=== PATIENT | male | born 1955 | race Caucasian/White ===

== ENCOUNTER 2017-06-02 03:25 | Inpatient (IN) | payer BC, OTHER ==
[2017-06-02] MEDS: MORPHINE 4 MG/ML 1ML VIAL/SYRINGE (J2270) IV ×4 (04:30→21:02)
[2017-06-02] MEDS: METOCLOPRAMIDE INJ 10MG/2ML VIAL (J2765) IV (04:30)
[2017-06-02] MEDS: NS 1,000 ML IV ×5 (04:30→20:23)
[2017-06-02 04:34] LABS: BASO % 0.1 % (0.0-1.0); HEMATOCRIT 36.8 % (42.0-52.0); HEMOGLOBIN 13.5 g/dl (13.5-17.5); IMMATURE GRANULOCYTE % 0.4 % (0-3.0); LYMPH # 0.7 10^3/uL (1.5-4.5); LYMPH % 4.6 % (24.0-44.0); MEAN CORPUSCULAR HEMOGLOBIN 32.8 pg (27.0-33.0); MEAN CORPUSCULAR HGB CONC 36.7 g/dl (32.0-36.5); MEAN CORPUSCULAR VOLUME 89.3 fl (80.0-96.0); MONO # 0.7 10^3/uL (0.0-0.8); MONO % 4.8 % (0.0-5.0); NEUTROPHILS % 90.1 % (36.0-66.0); PLATELET COUNT, AUTOMATED 221 10^3/uL (150-450); RED BLOOD COUNT 4.12 10^6/uL (4.30-6.10); RED CELL DISTRIBUTION WIDTH 11.9 % (11.5-14.5); WHITE BLOOD COUNT 15.5 10^3/uL (4.0-10.0)
[2017-06-02 05:03] LABS: ALBUMIN 3.9 GM/DL (3.2-5.2); ALBUMIN/GLOBULIN RATIO 1.05 (1.00-1.93); ALKALINE PHOSPHATASE 77 U/L (45-117); ALT/SGPT 18 U/L (12-78); ANION GAP 11 MEQ/L (8-16); AST/SGOT 16 U/L (7-37); BILIRUBIN,DIRECT 0.2 MG/DL (0.0-0.2); BILIRUBIN,TOTAL 1.2 MG/DL (0.2-1.0); BLOOD UREA NITROGEN 6 MG/DL (7-18); CALCIUM LEVEL 8.8 MG/DL (8.8-10.2); CARBON DIOXIDE LEVEL 24 MEQ/L (21-32); CHLORIDE LEVEL 90 MEQ/L (98-107); CREATININE FOR GFR 0.86 MG/DL (0.70-1.30); GLOMERULAR FILTRATION RATE > 60.0 (>49); GLUCOSE, FASTING 157 MG/DL (70-100); LIPASE 55 U/L (73-393); POTASSIUM SERUM 3.5 MEQ/L (3.5-5.1); SODIUM LEVEL 125 MEQ/L (136-145); TOTAL PROTEIN 7.6 GM/DL (6.4-8.2)
[2017-06-02 05:07] LABS: LACTIC ACID SEPSIS PROTOCOL 2.4 MMOL/L (0.4-2.0)
[2017-06-02 05:18] LABS: APPEARANCE, URINE CLEAR (CLEAR); BACTERIA, URINE AUTO NEGATIVE (NEGATIVE); BILIRUBIN, URINE AUTO NEGATIVE (NEGATIVE); BLOOD, URINE BLOOD 2+ (NEGATIVE); COLOR, URINE YELLOW (YELLOW); GLUCOSE, URINE (UA) AUTO 1+ mg/dL (NEGATIVE); KETONE, URINE AUTO TRACE mg/dL (NEGATIVE); LEUKOCYTE ESTERASE, URINE AUTO NEGATIVE (NEGATIVE); MUCUS, URINE SMALL (NEGATIVE); NITRITE, URINE AUTO NEGATIVE (NEGATIVE); PROTEIN, URINE AUTO NEGATIVE (NEGATIVE); RBC, URINE AUTO 10 /HPF (0-3); SQUAMOUS EPITHELIAL CELL UR AU 0 /HPF (0-6); UROBILINOGEN, URINE AUTO 0.2 mg/dL (0.0-2.0); WBC, URINE AUTO 0 /HPF (0-3)
[2017-06-02] MEDS: NS 500 ML IV (05:30)
[2017-06-02] MEDS: HYDROmorphone HCL 1 MG/ML SYRINGE (J1170) IV ×3 (05:35→11:43)
[2017-06-02] MEDS: ONDANSETRON 4MG/2ML VIAL (J2405) IV (05:41)
[2017-06-02] MEDS: PHENobarbital INJ 65 MG/ML VIAL (J2560) IV (06:15)
[2017-06-02] MEDS: GASTROGRAFIN SOLUTION 30ML (Q9963) PO ×2 (07:36→08:05)
[2017-06-02] MEDS ORDERED: ISOVUE-370 76% 100ML VIAL (Q9967) As Ordered (08:14)
[2017-06-02] MEDS ORDERED: METOCLOPRAMIDE INJ 10MG/2ML VIAL (J2765) IV (12:30)
[2017-06-02] MEDS ORDERED: PROMETHAZINE INJ 25 MG/ML VIAL (J2550) IV (12:30)
[2017-06-02] MEDS: CIPROFLOXACIN 400 MG in APPROPRIATE DILUENT 1 EA IV (13:41)
[2017-06-02] MEDS: PANTOPRAZOLE 40MG INJ (PROTONIX) (C9113) IV ×2 (13:41→21:01)
[2017-06-02] MEDS: metroNIDAZOLE 500 MG in APPROPRIATE DILUENT 1 EA IV ×2 (16:24→23:43)
[2017-06-02] MEDS: NICOTINE 21MG/24HR 1 EA TRANSDERMAL TD (22:49)
[2017-06-02] MEDS: LORazepam 2 MG/ML VIAL (J2060) IV (22:49)
[2017-06-03] MEDS: CIPROFLOXACIN 400 MG in APPROPRIATE DILUENT 1 EA IV ×2 (01:42→14:26)
[2017-06-03] MEDS: ONDANSETRON 4MG/2ML VIAL (J2405) IV (03:17)
[2017-06-03] MEDS: NS 1,000 ML IV ×3 (04:46→22:35)
[2017-06-03] MEDS: LORazepam 2 MG/ML VIAL (J2060) IV ×4 (05:52→14:27)
[2017-06-03 08:20] LABS: HEMATOCRIT 41.8 % (42.0-52.0); HEMOGLOBIN 14.8 g/dl (13.5-17.5); MEAN CORPUSCULAR HEMOGLOBIN 33.6 pg (27.0-33.0); MEAN CORPUSCULAR HGB CONC 35.4 g/dl (32.0-36.5); PLATELET COUNT, AUTOMATED 211 10^3/uL (150-450); RED CELL DISTRIBUTION WIDTH 12.5 % (11.5-14.5); WHITE BLOOD COUNT 6.5 10^3/uL (4.0-10.0)
[2017-06-03 08:44] LABS: ANION GAP 10 MEQ/L (8-16); BLOOD UREA NITROGEN 21 MG/DL (7-18); CALCIUM LEVEL 8.6 MG/DL (8.8-10.2); CARBON DIOXIDE LEVEL 23 MEQ/L (21-32); CHLORIDE LEVEL 100 MEQ/L (98-107); CREATININE FOR GFR 2.49 MG/DL (0.70-1.30); GLOMERULAR FILTRATION RATE 28.2 (>49); GLUCOSE, FASTING 124 MG/DL (70-100); POTASSIUM SERUM 3.5 MEQ/L (3.5-5.1); SODIUM LEVEL 133 MEQ/L (136-145)
[2017-06-03] MEDS: PANTOPRAZOLE 40MG INJ (PROTONIX) (C9113) IV ×2 (09:20→22:36)
[2017-06-03] MEDS: metroNIDAZOLE 500 MG in APPROPRIATE DILUENT 1 EA IV ×3 (09:20→23:14)
[2017-06-03] MEDS: NICOTINE 21MG/24HR 1 EA TRANSDERMAL TD (09:21)
[2017-06-03 13:21] LABS: HEMATOCRIT 42.3 % (42.0-52.0); HEMOGLOBIN 14.7 g/dl (13.5-17.5); MEAN CORPUSCULAR HGB CONC 34.8 g/dl (32.0-36.5); MEAN CORPUSCULAR VOLUME 95.1 fl (80.0-96.0); PLATELET COUNT, AUTOMATED 187 10^3/uL (150-450); RED BLOOD COUNT 4.45 10^6/uL (4.30-6.10); RED CELL DISTRIBUTION WIDTH 12.7 % (11.5-14.5); WHITE BLOOD COUNT 10.9 10^3/uL (4.0-10.0)
[2017-06-03 13:46] LABS: AMMONIA < 10 uMOL/L (<32)
[2017-06-03 13:52] LABS: ALBUMIN 3.1 GM/DL (3.2-5.2); ALBUMIN/GLOBULIN RATIO 0.97 (1.00-1.93); ALKALINE PHOSPHATASE 68 U/L (45-117); ALT/SGPT 22 U/L (12-78); ANION GAP 16 MEQ/L (8-16); AST/SGOT 110 U/L (7-37); BILIRUBIN,TOTAL 2.5 MG/DL (0.2-1.0); BLOOD UREA NITROGEN 27 MG/DL (7-18); BLOOD UREA NITROGEN 28 MG/DL (7-18); CALCIUM LEVEL 8.7 MG/DL (8.8-10.2); CALCIUM LEVEL 8.8 MG/DL (8.8-10.2); CARBON DIOXIDE LEVEL 18 MEQ/L (21-32); CHLORIDE LEVEL 101 MEQ/L (98-107); CHOLESTEROL LEVEL 109 MG/DL (<200); CHOLESTEROL RISK RATIO 1.816 (<5); CREATININE FOR GFR 2.95 MG/DL (0.70-1.30); CREATININE FOR GFR 3.02 MG/DL (0.70-1.30); GLOMERULAR FILTRATION RATE 22.6 (>49); GLOMERULAR FILTRATION RATE 23.2 (>49); GLUCOSE, FASTING 87 MG/DL (70-100); HDL CHOLESTEROL 60 MG/DL (>40); LDL CHOLESTEROL 27.2 MG/DL (<100); MAGNESIUM LEVEL 2.6 MG/DL (1.8-2.4); NON-HDL-C 49 MG/DL; POTASSIUM SERUM 4.4 MEQ/L (3.5-5.1); PSA SCREENING 2.53 NG/ML (< 4.0); SODIUM LEVEL 135 MEQ/L (136-145); TOTAL PROTEIN 6.3 GM/DL (6.4-8.2); TRIGLYCERIDES LEVEL 109 MG/DL (<150); TROPONIN I 0.29 NG/ML (< 0.10)
[2017-06-03 14:02] LABS: CK-MB VALUE MASS 33.5 NG/ML (<3.6); CPK CREATINE PHOSPHOKINASE 1523 U/L (39-308); MB/CK RELATIVE INDEX 2.19 (< OR =4)
[2017-06-03 14:38] LABS: ABG BASE EXCESS -7.7 (-2.0-2.0); ABG HCO3 15.5 MEQ/L (22.0-26.0); ABG O2 SATURATION 98.9 % (95.0-99.0); ABG PARTIAL PRESSURE CO2 26.4 mmHg (35.0-45.0); ABG PARTIAL PRESSURE O2 133.1 mmHg (75.0-100.0); ABG STANDARD HCO3 18.4 MEQ/L (22.0-26.0); ABG TOTAL CO2 16.3 MEQ/L (23.0-31.0); ABG pH (ARTERIAL) 7.387 UNITS (7.350-7.450)
[2017-06-03] MEDS: MULTIVITAMIN -ADULT INJECTION 10 ML, THIAMINE INJection 100 MG, FOLIC ACID 1 MG in NS 1... IV (15:16)
[2017-06-03 16:48] LABS: LACTIC ACID SEPSIS PROTOCOL 5.4 MMOL/L (0.4-2.0)
[2017-06-03] MEDS: THIAMINE HCL 200 MG/2 ML VIAL (J3411) IV (17:02)
[2017-06-03 17:37] LABS: SODIUM,RANDOM URINE 16 MEQ/L
[2017-06-03 17:37] LABS: CREATININE,RANDOM URINE 75.8 MG/DL
[2017-06-03 17:38] LABS: T UPTAKE 40 % (33-40); THYROXINE (T4) 7.5 UG/DL (4.5-12.0)
[2017-06-03 17:47] LABS: AMORPHOUS SEDIMENT SMALL (NEGATIVE); APPEARANCE, URINE HAZY (CLEAR); BACTERIA, URINE AUTO NEGATIVE (NEGATIVE); BILIRUBIN, URINE AUTO NEGATIVE (NEGATIVE); BLOOD, URINE BLOOD 3+ (NEGATIVE); COLOR, URINE YELLOW (YELLOW); GLUCOSE, URINE (UA) AUTO NEGATIVE (NEGATIVE); KETONE, URINE AUTO NEGATIVE (NEGATIVE); LEUKOCYTE ESTERASE, URINE AUTO NEGATIVE (NEGATIVE); MUCUS, URINE SMALL (NEGATIVE); NITRITE, URINE AUTO NEGATIVE (NEGATIVE); PROTEIN, URINE AUTO 1+ mg/dL (NEGATIVE); RBC, URINE AUTO 1 /HPF (0-3); SPECIFIC GRAVITY URINE AUTO 1.018 (1.002-1.035); SQUAMOUS EPITHELIAL CELL UR AU 0 /HPF (0-6); UROBILINOGEN, URINE AUTO 0.2 mg/dL (0.0-2.0); WBC, URINE AUTO 2 /HPF (0-3)
[2017-06-03] MEDS: SODIUM BICARBONATE 100 MEQ in D5W 1,000 ML IV (18:18)
[2017-06-03] MEDS ORDERED: ROCURONIUM BROMIDE 50 MG/5 ML VIAL As Ordered (18:36)
[2017-06-03] MEDS ORDERED: PROPOFOL 200 MG/20 ML VIAL As Ordered (18:38)
[2017-06-03] MEDS ORDERED: LIDOCAINE 2% INJ 100 MG/5 ML SDV (FOR ANES.) As Ordered (18:38)
[2017-06-03] MEDS ORDERED: fentaNYL 100 MCG/2 ML INJECTION (J3010) As Ordered ×2 (18:39→20:59)
[2017-06-03] MEDS ORDERED: MIDAZOLAM INJ 2 MG/2 ML VIAL (J2250) As Ordered ×2 (18:48→20:39)
[2017-06-03] MEDS ORDERED: AMIODARONE HCL 150 MG/100 ML PREMIXED BAG (NEXTERONE) (20:03)
[2017-06-03] MEDS ORDERED: PHENYLephrine HCL 500 MCG/5 ML (100MCG/ML) SYRINGE (J2370) As Ordered ×2 (20:25)
[2017-06-03] MEDS ORDERED: ePHEDrine SULFATE 25 MG/5 ML(5MG/ML) SYRINGE As Ordered ×2 (20:25)
[2017-06-03] MEDS ORDERED: CALCIUM CHLORIDE 10% 1 GM/10 ML SYR As Ordered (20:25)
[2017-06-03] MEDS ORDERED: SODIUM BICARBONATE 8.4% INJ 50 ML SYRINGE As Ordered (20:25)
[2017-06-03] MEDS ORDERED: EPINEPHrine 1MG/10ML SYRINGE 1.5IN As Ordered (20:25)
[2017-06-03] MEDS ORDERED: VASOPRESSIN INJ 20 UNITS/ML VIAL As Ordered (20:26)
[2017-06-03 20:48] LABS: HEMATOCRIT 27.4 % (42.0-52.0); HEMOGLOBIN 9.6 g/dl (13.5-17.5); MEAN CORPUSCULAR HEMOGLOBIN 33.1 pg (27.0-33.0); MEAN CORPUSCULAR VOLUME 94.5 fl (80.0-96.0); PLATELET COUNT, AUTOMATED 139 10^3/uL (150-450); RED CELL DISTRIBUTION WIDTH 12.7 % (11.5-14.5); WHITE BLOOD COUNT 10.4 10^3/uL (4.0-10.0)
[2017-06-03] MEDS: fentaNYL 100 MCG/2 ML INJECTION (J3010) IV ×2 (21:09→21:21)
[2017-06-03 21:15] LABS: ANION GAP 12 MEQ/L (8-16); BLOOD UREA NITROGEN 35 MG/DL (7-18); CALCIUM LEVEL 7.7 MG/DL (8.8-10.2); CARBON DIOXIDE LEVEL 19 MEQ/L (21-32); CHLORIDE LEVEL 107 MEQ/L (98-107); CK-MB VALUE MASS 52.6 NG/ML (<3.6); CPK CREATINE PHOSPHOKINASE 2957 U/L (39-308); CREATININE FOR GFR 2.98 MG/DL (0.70-1.30); GLOMERULAR FILTRATION RATE 22.9 (>49); GLUCOSE, FASTING 109 MG/DL (70-100); MB/CK RELATIVE INDEX 1.77 (< OR =4); SODIUM LEVEL 138 MEQ/L (136-145); TROPONIN I 0.48 NG/ML (< 0.10)
[2017-06-03 21:17] LABS: INR 1.74; PARTIAL THROMBOPLASTIN TIME 35.1 SECONDS (26.8-37.9); PROTHROMBIN TIME 20.9 SECONDS (12.4-14.5)
[2017-06-03 21:19] LABS: IMMEDIATE SPIN CROSSMATCH 1 2
[2017-06-03] MEDS: PROPOFOL 1,000 MG in APPROPRIATE DILUENT 1 EA IV (21:56)
[2017-06-03] MEDS ORDERED: ALBUTEROL SULFATE 2.5 MG/0.5 ML INH NEB SOLN NEB (22:00)
[2017-06-03] MEDS: LR 1,000 ML IV (22:00)
[2017-06-03] MEDS ORDERED: NOREPINEPHRINE 4 MG/4 ML AMP As Ordered (22:28)
[2017-06-03] MEDS: NOREPINEPHRINE BITARTRATE 8 MG in D5W 492 ML IV (22:45)
[2017-06-03] MEDS ORDERED: REFRIGERATOR IV KEYS XX (22:45)
[2017-06-03 22:53] LABS: ABG BASE EXCESS -8.6 (-2.0-2.0); ABG HCO3 18.3 MEQ/L (22.0-26.0); ABG O2 SATURATION 99.8 % (95.0-99.0); ABG PARTIAL PRESSURE CO2 42.6 mmHg (35.0-45.0); ABG PARTIAL PRESSURE O2 307.8 mmHg (75.0-100.0); ABG STANDARD HCO3 17.7 MEQ/L (22.0-26.0); ABG TOTAL CO2 19.6 MEQ/L (23.0-31.0)
[2017-06-03 22:54] LABS: LACTIC ACID SEPSIS PROTOCOL 4.2 MMOL/L (0.4-2.0)
[2017-06-03] MEDS: MIDAZOLAM HCL 100 MG in D5W 80 ML IV (23:00)
[2017-06-03] MEDS: MORPHINE 4 MG/ML 1ML VIAL/SYRINGE (J2270) IV (23:26)
[2017-06-04] MEDS: IPRATROPIUM 0.5MG/ALBUTEROL 2.5MG INH SOL UD 3ML (DUONEB)(J7620) NEB ×6 (00:21→20:00)
[2017-06-04] MEDS: MIDAZOLAM INJ 2 MG/2 ML VIAL (J2250) IV (00:53)
[2017-06-04] MEDS: CIPROFLOXACIN 400 MG in APPROPRIATE DILUENT 1 EA IV (01:55)
[2017-06-04 02:02] LABS: CK-MB VALUE MASS 96.2 NG/ML (<3.6); CPK CREATINE PHOSPHOKINASE 5221 U/L (39-308); MB/CK RELATIVE INDEX 1.84 (< OR =4)
[2017-06-04 02:17] LABS: TROPONIN I 2.87 NG/ML (< 0.10)
[2017-06-04] MEDS: NS 1,000 ML IV ×6 (04:19→23:38)
[2017-06-04] MEDS: MORPHINE 4 MG/ML 1ML VIAL/SYRINGE (J2270) IV ×5 (04:49→23:48)
[2017-06-04 05:17] LABS: HEMATOCRIT 39.6 % (42.0-52.0); MEAN CORPUSCULAR HEMOGLOBIN 32.9 pg (27.0-33.0); MEAN CORPUSCULAR HGB CONC 35.4 g/dl (32.0-36.5); PLATELET COUNT, AUTOMATED 133 10^3/uL (150-450); RED BLOOD COUNT 4.26 10^6/uL (4.30-6.10); RED CELL DISTRIBUTION WIDTH 14.5 % (11.5-14.5); WHITE BLOOD COUNT 12.1 10^3/uL (4.0-10.0)
[2017-06-04 05:37] LABS: ALBUMIN 1.9 GM/DL (3.2-5.2); ALBUMIN/GLOBULIN RATIO 0.66 (1.00-1.93); ALKALINE PHOSPHATASE 60 U/L (45-117); ALT/SGPT 50 U/L (12-78); ANION GAP 10 MEQ/L (8-16); AST/SGOT 257 U/L (7-37); BILIRUBIN,TOTAL 1.3 MG/DL (0.2-1.0); BLOOD UREA NITROGEN 43 MG/DL (7-18); CALCIUM LEVEL 6.8 MG/DL (8.8-10.2); CARBON DIOXIDE LEVEL 20 MEQ/L (21-32); CHLORIDE LEVEL 108 MEQ/L (98-107); CHOLESTEROL LEVEL 66 MG/DL (< 200); CREATININE FOR GFR 3.44 MG/DL (0.70-1.30); GLOMERULAR FILTRATION RATE 19.4 (>49); GLUCOSE, FASTING 107 MG/DL (70-100); LDH LACTATE DEHYDROGENASE 859 U/L (87-241); MAGNESIUM LEVEL 2.3 MG/DL (1.8-2.4); PHOSPHORUS LEVEL 6.2 MG/DL (2.5-4.9); POTASSIUM SERUM 4.5 MEQ/L (3.5-5.1); SODIUM LEVEL 138 MEQ/L (136-145); TOTAL PROTEIN 4.8 GM/DL (6.4-8.2); TRIGLYCERIDES LEVEL 153 MG/DL (<150)
[2017-06-04 05:48] LABS: CK-MB VALUE MASS 116.7 NG/ML (<3.6); CPK CREATINE PHOSPHOKINASE 6729 U/L (39-308); MB/CK RELATIVE INDEX 1.73 (< OR =4)
[2017-06-04 05:50] LABS: TROPONIN I 3.11 NG/ML (< 0.10)
[2017-06-04 06:07] LABS: ABG BASE EXCESS -10.8 (-2.0-2.0); ABG HCO3 14.4 MEQ/L (22.0-26.0); ABG O2 SATURATION 95.9 % (95.0-99.0); ABG PARTIAL PRESSURE CO2 30.7 mmHg (35.0-45.0); ABG PARTIAL PRESSURE O2 82.5 mmHg (75.0-100.0); ABG TOTAL CO2 15.3 MEQ/L (23.0-31.0); ABG pH (ARTERIAL) 7.288 UNITS (7.350-7.450)
[2017-06-04] MEDS: NS 500 ML IV ×2 (08:00→09:10)
[2017-06-04] MEDS: THIAMINE HCL 200 MG/2 ML VIAL (J3411) IV (08:49)
[2017-06-04] MEDS: PANTOPRAZOLE 40MG INJ (PROTONIX) (C9113) IV ×2 (08:49→20:58)
[2017-06-04] MEDS: metroNIDAZOLE 500 MG in APPROPRIATE DILUENT 1 EA IV ×3 (08:50→23:49)
[2017-06-04] MEDS: CHLORHEXIDINE ORAL RINSE 0.12%/15ML 120ML BOTTLE MT ×2 (08:51→20:59)
[2017-06-04] MEDS: NICOTINE 21MG/24HR 1 EA TRANSDERMAL TD ×2 (08:51→09:20)
[2017-06-04 10:31] LABS: IONIZED CALCIUM 3.7 MG/DL (4.5-5.3)
[2017-06-04] MEDS: NOREPINEPHRINE BITARTRATE 8 MG in D5W 492 ML IV (12:05)
[2017-06-04] MEDS: MULTIVITAMIN -ADULT INJECTION 10 ML, THIAMINE INJection 100 MG, FOLIC ACID 1 MG in NS 1... IV (12:40)
[2017-06-04 14:25] LABS: PARTIAL THROMBOPLASTIN TIME 37.7 SECONDS (26.8-37.9)
[2017-06-04] MEDS: HEPARIN DRIP 25,000 UNITS in APPROPRIATE DILUENT 1 EA IV (14:50)
[2017-06-04] MEDS: HumaLOG INSULIN (NovoLOG) PER UNIT SC ×2 (18:00→23:49)
[2017-06-04 18:02] LABS: TROPONIN I 1.16 NG/ML (< 0.10)
[2017-06-04 18:21] LABS: CK-MB VALUE MASS 82.3 NG/ML (<3.6); CPK CREATINE PHOSPHOKINASE 7888 U/L (39-308); MB/CK RELATIVE INDEX 1.04 (< OR =4)
[2017-06-04] MEDS ORDERED: SODIUM CHLORIDE 0.9% INJ 10 ML SYR IV (18:30)
[2017-06-04] MEDS ORDERED: DEXTROSE 50% 50 ML SYRINGE IV (18:45)
[2017-06-04] MEDS ORDERED: GLUCOSE 4 GM CHEW TABLET PO (18:45)
[2017-06-04] MEDS ORDERED: GLUCAGON FOR INJ 1 MG VIAL (J1610) SC (18:45)
[2017-06-04 19:08] LABS: BEDSIDE GLUCOSE 112 MG/DL (80-115)
[2017-06-04 19:17] LABS: ABG BASE EXCESS -11.2 (-2.0-2.0); ABG HCO3 14.1 MEQ/L (22.0-26.0); ABG O2 SATURATION 95.9 % (95.0-99.0); ABG PARTIAL PRESSURE CO2 30.3 mmHg (35.0-45.0); ABG STANDARD HCO3 15.7 MEQ/L (22.0-26.0); ABG pH (ARTERIAL) 7.285 UNITS (7.350-7.450)
[2017-06-04] MEDS ORDERED: AMIODARONE HCL 150 MG/100 ML PREMIXED BAG (NEXTERONE) As Ordered (19:21)
[2017-06-04 19:23] LABS: HEMATOCRIT 35.7 % (42.0-52.0); HEMOGLOBIN 12.8 g/dl (13.5-17.5); MEAN CORPUSCULAR HEMOGLOBIN 33.4 pg (27.0-33.0); MEAN CORPUSCULAR HGB CONC 35.9 g/dl (32.0-36.5); MEAN CORPUSCULAR VOLUME 93.2 fl (80.0-96.0); PLATELET COUNT, AUTOMATED 106 10^3/uL (150-450); RED BLOOD COUNT 3.83 10^6/uL (4.30-6.10); RED CELL DISTRIBUTION WIDTH 15.3 % (11.5-14.5)
[2017-06-04] MEDS: AMIODARONE HCL 150 MG in APPROPRIATE DILUENT 1 EA IV (19:28)
[2017-06-04 21:17] LABS: PARTIAL THROMBOPLASTIN TIME 154.7 SECONDS (26.8-37.9)
[2017-06-04] MEDS: SODIUM CHLORIDE 0.9% INJ 10 ML SYR IV (22:00)
[2017-06-04] MEDS: MIDAZOLAM HCL 100 MG in D5W 80 ML IV (23:39)
[2017-06-04 23:49] LABS: BEDSIDE GLUCOSE 127 MG/DL (80-115)
[2017-06-05] MEDS: CIPROFLOXACIN 400 MG in APPROPRIATE DILUENT 1 EA IV (01:30)
[2017-06-05] MEDS: MIDAZOLAM INJ 2 MG/2 ML VIAL (J2250) IV ×2 (03:40→05:13)
[2017-06-05] MEDS: MORPHINE 4 MG/ML 1ML VIAL/SYRINGE (J2270) IV ×3 (03:44→14:25)
[2017-06-05] MEDS: IPRATROPIUM 0.5MG/ALBUTEROL 2.5MG INH SOL UD 3ML (DUONEB)(J7620) NEB ×7 (04:00→23:58)
[2017-06-05] MEDS: NS 1,000 ML IV ×2 (04:08→08:46)
[2017-06-05 04:32] LABS: HEMATOCRIT 34.3 % (42.0-52.0); HEMOGLOBIN 12.1 g/dl (13.5-17.5); MEAN CORPUSCULAR HEMOGLOBIN 32.7 pg (27.0-33.0); MEAN CORPUSCULAR HGB CONC 35.3 g/dl (32.0-36.5); MEAN CORPUSCULAR VOLUME 92.7 fl (80.0-96.0); RED CELL DISTRIBUTION WIDTH 15.2 % (11.5-14.5); WHITE BLOOD COUNT 12.3 10^3/uL (4.0-10.0)
[2017-06-05 04:58] LABS: PLATELET COUNT, AUTOMATED 94 10^3/uL (150-450)
[2017-06-05 04:59] LABS: IMMATURE PLATELET FRACTION % 5.3 % (0.0-10.9)
[2017-06-05 05:40] LABS: ABG BASE EXCESS -12.4 (-2.0-2.0); ABG HCO3 11.8 MEQ/L (22.0-26.0); ABG O2 SATURATION 98.5 % (95.0-99.0); ABG PARTIAL PRESSURE CO2 23.6 mmHg (35.0-45.0); ABG PARTIAL PRESSURE O2 121.2 mmHg (75.0-100.0); ABG STANDARD HCO3 14.9 MEQ/L (22.0-26.0); ABG TOTAL CO2 12.5 MEQ/L (23.0-31.0); ABG pH (ARTERIAL) 7.317 UNITS (7.350-7.450)
[2017-06-05 05:52] LABS: ALBUMIN 1.5 GM/DL (3.2-5.2); ALBUMIN/GLOBULIN RATIO 0.71 (1.00-1.93); ALKALINE PHOSPHATASE 65 U/L (45-117); ALT/SGPT 70 U/L (12-78); ANION GAP 12 MEQ/L (8-16); AST/SGOT 248 U/L (7-37); BILIRUBIN,TOTAL 0.6 MG/DL (0.2-1.0); BLOOD UREA NITROGEN 61 MG/DL (7-18); CALCIUM LEVEL 6.2 MG/DL (8.8-10.2); CARBON DIOXIDE LEVEL 14 MEQ/L (21-32); CHLORIDE LEVEL 117 MEQ/L (98-107); CHOLESTEROL LEVEL 64 MG/DL (< 200); CPK CREATINE PHOSPHOKINASE 7208 U/L (39-308); CREATININE FOR GFR 4.93 MG/DL (0.70-1.30); GLOMERULAR FILTRATION RATE 12.8 (>49); GLUCOSE, FASTING 138 MG/DL (70-100); LDH LACTATE DEHYDROGENASE 881 U/L (87-241); MAGNESIUM LEVEL 2.2 MG/DL (1.8-2.4); PHOSPHORUS LEVEL 6.1 MG/DL (2.5-4.9); POTASSIUM SERUM 4.7 MEQ/L (3.5-5.1); SODIUM LEVEL 143 MEQ/L (136-145); TOTAL PROTEIN 3.6 GM/DL (6.4-8.2); TRIGLYCERIDES LEVEL 194 MG/DL (<150)
[2017-06-05] MEDS: HumaLOG INSULIN (NovoLOG) PER UNIT SC ×3 (06:00→18:01)
[2017-06-05] MEDS: SODIUM CHLORIDE 0.9% INJ 10 ML SYR IV ×3 (06:00→21:04)
[2017-06-05] MEDS: AMIODARONE HCL 150 MG in APPROPRIATE DILUENT 1 EA IV ×3 (06:03→16:14)
[2017-06-05] MEDS: DIGOXIN INJ 0.5 MG/2 ML AMP (J1160) IV ×3 (07:47→13:13)
[2017-06-05] MEDS: metroNIDAZOLE 500 MG in APPROPRIATE DILUENT 1 EA IV ×2 (07:47→16:15)
[2017-06-05] MEDS: PANTOPRAZOLE 40MG INJ (PROTONIX) (C9113) IV ×2 (08:40→21:03)
[2017-06-05] MEDS: CHLORHEXIDINE ORAL RINSE 0.12%/15ML 120ML BOTTLE MT ×2 (08:40→21:04)
[2017-06-05 11:20] LABS: PARTIAL THROMBOPLASTIN TIME 79.5 SECONDS (26.8-37.9)
[2017-06-05] MEDS: SODIUM BICARBONATE 150 MEQ in D5W 1,000 ML IV ×2 (11:51→18:00)
[2017-06-05 12:10] LABS: BEDSIDE GLUCOSE 123 MG/DL (80-115)
[2017-06-05] MEDS ORDERED: HEPARIN SOD (PORCINE) 5000 UNITS/ML VIAL IV (12:30)
[2017-06-05] MEDS: HEPARIN 1,000 UNITS/ML 10ML VIAL (FOR RADIOLOGY& DIALYSIS ONLY) IV (13:13)
[2017-06-05 15:48] LABS: ANION GAP 12 MEQ/L (8-16); BLOOD UREA NITROGEN 74 MG/DL (7-18); CALCIUM LEVEL 6.8 MG/DL (8.8-10.2); CARBON DIOXIDE LEVEL 15 MEQ/L (21-32); CHLORIDE LEVEL 115 MEQ/L (98-107); CREATININE FOR GFR 5.56 MG/DL (0.70-1.30); GLOMERULAR FILTRATION RATE 11.2 (>49); GLUCOSE, FASTING 186 MG/DL (70-100); POTASSIUM SERUM 4.2 MEQ/L (3.5-5.1); SODIUM LEVEL 142 MEQ/L (136-145)
[2017-06-05 18:01] LABS: BEDSIDE GLUCOSE 208 MG/DL (80-115)
[2017-06-05 18:14] LABS: PARTIAL THROMBOPLASTIN TIME 67.6 SECONDS (26.8-37.9)
[2017-06-05] MEDS: METOPROLOL 5 MG/5 ML VIAL IV (19:30)
[2017-06-05 20:56] LABS: ABG BASE EXCESS -7.5 (-2.0-2.0); ABG HCO3 15.2 MEQ/L (22.0-26.0); ABG O2 SATURATION 98.3 % (95.0-99.0); ABG PARTIAL PRESSURE CO2 23.9 mmHg (35.0-45.0); ABG PARTIAL PRESSURE O2 102.8 mmHg (75.0-100.0); ABG STANDARD HCO3 18.4 MEQ/L (22.0-26.0); ABG pH (ARTERIAL) 7.422 UNITS (7.350-7.450)
[2017-06-05 23:54] LABS: BEDSIDE GLUCOSE 187 MG/DL (80-115)
[2017-06-06] MEDS: HumaLOG INSULIN (NovoLOG) PER UNIT SC ×5 (00:01→23:57)
[2017-06-06] MEDS: metroNIDAZOLE 500 MG in APPROPRIATE DILUENT 1 EA IV ×4 (00:01→23:57)
[2017-06-06] MEDS: HEPARIN DRIP 25,000 UNITS in APPROPRIATE DILUENT 1 EA IV (00:02)
[2017-06-06] MEDS: MIDAZOLAM HCL 100 MG in D5W 80 ML IV (00:03)
[2017-06-06] MEDS: CIPROFLOXACIN 400 MG in APPROPRIATE DILUENT 1 EA IV (01:59)
[2017-06-06] MEDS: IPRATROPIUM 0.5MG/ALBUTEROL 2.5MG INH SOL UD 3ML (DUONEB)(J7620) NEB ×6 (03:34→23:59)
[2017-06-06] MEDS: SODIUM BICARBONATE 150 MEQ in D5W 1,000 ML IV ×2 (05:52)
[2017-06-06] MEDS: METOPROLOL 5 MG/5 ML VIAL IV ×6 (05:53→23:56)
[2017-06-06] MEDS: SODIUM CHLORIDE 0.9% INJ 10 ML SYR IV ×3 (05:54→21:21)
[2017-06-06 05:55] LABS: ABG BASE EXCESS -1.1 (-2.0-2.0); ABG HCO3 21.3 MEQ/L (22.0-26.0); ABG PARTIAL PRESSURE CO2 28.8 mmHg (35.0-45.0); ABG PARTIAL PRESSURE O2 99.1 mmHg (75.0-100.0); ABG STANDARD HCO3 23.6 MEQ/L (22.0-26.0); ABG TOTAL CO2 22.2 MEQ/L (23.0-31.0); ABG pH (ARTERIAL) 7.487 UNITS (7.350-7.450)
[2017-06-06 06:04] LABS: BEDSIDE GLUCOSE 164 MG/DL (80-115)
[2017-06-06 06:28] LABS: PARTIAL THROMBOPLASTIN TIME 57.4 SECONDS (26.8-37.9)
[2017-06-06 07:26] LABS: HEMATOCRIT 45.9 % (42.0-52.0); MEAN CORPUSCULAR HEMOGLOBIN 32.3 pg (27.0-33.0); MEAN CORPUSCULAR VOLUME 87.1 fl (80.0-96.0); RED BLOOD COUNT 5.27 10^6/uL (4.30-6.10); RED CELL DISTRIBUTION WIDTH 14.7 % (11.5-14.5); WHITE BLOOD COUNT 6.3 10^3/uL (4.0-10.0)
[2017-06-06 07:27] LABS: PLATELET COUNT, AUTOMATED 46 10^3/uL (150-450); POS COUNT POS FLAG
[2017-06-06 07:50] LABS: IMMATURE PLATELET FRACTION % 6.6 % (0.0-10.9); PLATELET F 3.9
[2017-06-06 08:07] LABS: ALBUMIN 1.3 GM/DL (3.2-5.2); ALBUMIN/GLOBULIN RATIO 0.68 (1.00-1.93); ALKALINE PHOSPHATASE 45 U/L (45-117); ALT/SGPT 72 U/L (12-78); ANION GAP 12 MEQ/L (8-16); AST/SGOT 197 U/L (7-37); BILIRUBIN,TOTAL 0.4 MG/DL (0.2-1.0); BLOOD UREA NITROGEN 83 MG/DL (7-18); CARBON DIOXIDE LEVEL 22 MEQ/L (21-32); CHLORIDE LEVEL 108 MEQ/L (98-107); CHOLESTEROL LEVEL 55 MG/DL (< 200); CPK CREATINE PHOSPHOKINASE 5111 U/L (39-308); CREATININE FOR GFR 5.53 MG/DL (0.70-1.30); GLOMERULAR FILTRATION RATE 11.2 (>49); GLUCOSE, FASTING 165 MG/DL (70-100); LDH LACTATE DEHYDROGENASE 806 U/L (87-241); MAGNESIUM LEVEL 2.2 MG/DL (1.8-2.4); PHOSPHORUS LEVEL 5.7 MG/DL (2.5-4.9); POTASSIUM SERUM 3.2 MEQ/L (3.5-5.1); SODIUM LEVEL 142 MEQ/L (136-145); TOTAL PROTEIN 3.2 GM/DL (6.4-8.2); TRIGLYCERIDES LEVEL 116 MG/DL (<150)
[2017-06-06] MEDS: PANTOPRAZOLE 40MG INJ (PROTONIX) (C9113) IV ×2 (09:26→21:21)
[2017-06-06] MEDS: CHLORHEXIDINE ORAL RINSE 0.12%/15ML 120ML BOTTLE MT ×2 (09:27→21:21)
[2017-06-06 09:41] LABS: HEMATOCRIT 30.3 % (42.0-52.0); HEMOGLOBIN 11.3 g/dl (13.5-17.5); MEAN CORPUSCULAR HEMOGLOBIN 32.8 pg (27.0-33.0); MEAN CORPUSCULAR HGB CONC 37.3 g/dl (32.0-36.5); MEAN CORPUSCULAR VOLUME 88.1 fl (80.0-96.0); RED BLOOD COUNT 3.44 10^6/uL (4.30-6.10); RED CELL DISTRIBUTION WIDTH 14.9 % (11.5-14.5); WHITE BLOOD COUNT 5.6 10^3/uL (4.0-10.0)
[2017-06-06 09:42] LABS: PLATELET COUNT, AUTOMATED 51 10^3/uL (150-450); POS COUNT POS FLAG
[2017-06-06 11:02] LABS: ABG BASE EXCESS 0.7 (-2.0-2.0); ABG HCO3 22.4 MEQ/L (22.0-26.0); ABG O2 SATURATION 97.7 % (95.0-99.0); ABG PARTIAL PRESSURE CO2 27.7 mmHg (35.0-45.0); ABG STANDARD HCO3 25.1 MEQ/L (22.0-26.0); ABG TOTAL CO2 23.2 MEQ/L (23.0-31.0); ABG pH (ARTERIAL) 7.525 UNITS (7.350-7.450)
[2017-06-06 12:08] LABS: ABG BASE EXCESS 1.8 (-2.0-2.0); ABG HCO3 23.8 MEQ/L (22.0-26.0); ABG O2 SATURATION 97.9 % (95.0-99.0); ABG PARTIAL PRESSURE CO2 29.7 mmHg (35.0-45.0); ABG PARTIAL PRESSURE O2 95.1 mmHg (75.0-100.0); ABG STANDARD HCO3 26.1 MEQ/L (22.0-26.0); ABG TOTAL CO2 24.7 MEQ/L (23.0-31.0); ABG pH (ARTERIAL) 7.522 UNITS (7.350-7.450)
[2017-06-06 12:08] LABS: BEDSIDE GLUCOSE 79 MG/DL (80-115)
[2017-06-06 12:10] LABS: PARTIAL THROMBOPLASTIN TIME 62.4 SECONDS (26.8-37.9)
[2017-06-06] MEDS: DEXTROSE 50% 50 ML SYRINGE IV (12:15)
[2017-06-06] MEDS: MORPHINE 4 MG/ML 1ML VIAL/SYRINGE (J2270) IV (12:20)
[2017-06-06] MEDS: AMIODARONE HCL 150 MG in APPROPRIATE DILUENT 1 EA IV (14:13)
[2017-06-06] MEDS: [UNRECOGNIZED DRUG - OTHER] IV (17:44)
[2017-06-06] MEDS: POTASSIUM CHLORIDE IV (17:44)
[2017-06-06] MEDS: FAT EMULSION IV 20% 500 ML IV (17:44)
[2017-06-06] MEDS: SODIUM CHLORIDE IV (17:44)
[2017-06-06 17:47] LABS: BEDSIDE GLUCOSE 98 MG/DL (80-115)
[2017-06-06 18:22] LABS: HEMOGLOBIN 11.5 g/dl (13.5-17.5); MEAN CORPUSCULAR HEMOGLOBIN 32.4 pg (27.0-33.0); MEAN CORPUSCULAR HGB CONC 37.1 g/dl (32.0-36.5); MEAN CORPUSCULAR VOLUME 87.3 fl (80.0-96.0); RED BLOOD COUNT 3.55 10^6/uL (4.30-6.10); RED CELL DISTRIBUTION WIDTH 14.7 % (11.5-14.5); WHITE BLOOD COUNT 10.3 10^3/uL (4.0-10.0)
[2017-06-06 18:29] LABS: PLATELET COUNT, AUTOMATED 52 10^3/uL (150-450)
[2017-06-07 00:19] LABS: BEDSIDE GLUCOSE 151 MG/DL (80-115)
[2017-06-07 00:33] LABS: PARTIAL THROMBOPLASTIN TIME 77.1 SECONDS (26.8-37.9)
[2017-06-07] MEDS: CIPROFLOXACIN 400 MG in APPROPRIATE DILUENT 1 EA IV (02:26)
[2017-06-07] MEDS: METOPROLOL 5 MG/5 ML VIAL IV ×6 (03:41→23:51)
[2017-06-07] MEDS: IPRATROPIUM 0.5MG/ALBUTEROL 2.5MG INH SOL UD 3ML (DUONEB)(J7620) NEB ×6 (04:10→23:38)
[2017-06-07] MEDS: HEPARIN DRIP 25,000 UNITS in APPROPRIATE DILUENT 1 EA IV (04:49)
[2017-06-07 05:57] LABS: BEDSIDE GLUCOSE 151 MG/DL (80-115)
[2017-06-07] MEDS: SODIUM CHLORIDE 0.9% INJ 10 ML SYR IV ×3 (06:01→20:53)
[2017-06-07] MEDS: HumaLOG INSULIN (NovoLOG) PER UNIT SC ×4 (06:01→23:52)
[2017-06-07 06:08] LABS: ABG HCO3 22.5 MEQ/L (22.0-26.0); ABG O2 SATURATION 95.4 % (95.0-99.0); ABG PARTIAL PRESSURE CO2 29.8 mmHg (35.0-45.0); ABG PARTIAL PRESSURE O2 74.3 mmHg (75.0-100.0); ABG STANDARD HCO3 24.4 MEQ/L (22.0-26.0); ABG TOTAL CO2 23.4 MEQ/L (23.0-31.0); ABG pH (ARTERIAL) 7.495 UNITS (7.350-7.450)
[2017-06-07 06:32] LABS: PARTIAL THROMBOPLASTIN TIME 77.8 SECONDS (26.8-37.9)
[2017-06-07 06:46] LABS: HEMATOCRIT 29.7 % (42.0-52.0); HEMOGLOBIN 10.9 g/dl (13.5-17.5); MEAN CORPUSCULAR HEMOGLOBIN 32.6 pg (27.0-33.0); MEAN CORPUSCULAR HGB CONC 36.7 g/dl (32.0-36.5); MEAN CORPUSCULAR VOLUME 88.9 fl (80.0-96.0); RED BLOOD COUNT 3.34 10^6/uL (4.30-6.10); RED CELL DISTRIBUTION WIDTH 15.4 % (11.5-14.5)
[2017-06-07 06:50] LABS: PLATELET COUNT, AUTOMATED 60 10^3/uL (150-450)
[2017-06-07 08:20] LABS: ALBUMIN 1.3 GM/DL (3.2-5.2); ALBUMIN/GLOBULIN RATIO 0.65 (1.00-1.93); ALKALINE PHOSPHATASE 35 U/L (45-117); ALT/SGPT 69 U/L (12-78); ANION GAP 12 MEQ/L (8-16); AST/SGOT 142 U/L (7-37); BILIRUBIN,TOTAL 0.4 MG/DL (0.2-1.0); BLOOD UREA NITROGEN 68 MG/DL (7-18); CALCIUM LEVEL 6.7 MG/DL (8.8-10.2); CARBON DIOXIDE LEVEL 21 MEQ/L (21-32); CHLORIDE LEVEL 110 MEQ/L (98-107); CHOLESTEROL LEVEL 65 MG/DL (< 200); CPK CREATINE PHOSPHOKINASE 2557 U/L (39-308); CREATININE FOR GFR 5.02 MG/DL (0.70-1.30); GLOMERULAR FILTRATION RATE 12.6 (>49); GLUCOSE, FASTING 146 MG/DL (70-100); LDH LACTATE DEHYDROGENASE 682 U/L (87-241); MAGNESIUM LEVEL 2.2 MG/DL (1.8-2.4); PHOSPHORUS LEVEL 3.4 MG/DL (2.5-4.9); POTASSIUM SERUM 4.2 MEQ/L (3.5-5.1); SODIUM LEVEL 143 MEQ/L (136-145); TOTAL PROTEIN 3.3 GM/DL (6.4-8.2); TRIGLYCERIDES LEVEL 209 MG/DL (<150)
[2017-06-07] MEDS: PANTOPRAZOLE 40MG INJ (PROTONIX) (C9113) IV ×2 (08:52→20:53)
[2017-06-07] MEDS: metroNIDAZOLE 500 MG in APPROPRIATE DILUENT 1 EA IV ×3 (08:52→23:52)
[2017-06-07] MEDS: CHLORHEXIDINE ORAL RINSE 0.12%/15ML 120ML BOTTLE MT ×2 (08:52→20:52)
[2017-06-07] MEDS ORDERED: ALTEPLASE 2 MG/2 ML VIAL (J2997 PER 1MG) IV (09:30)
[2017-06-07] MEDS: MIDAZOLAM INJ 2 MG/2 ML VIAL (J2250) IV ×2 (09:32→11:54)
[2017-06-07] MEDS: MORPHINE 4 MG/ML 1ML VIAL/SYRINGE (J2270) IV ×2 (10:21→12:35)
[2017-06-07 11:58] LABS: BEDSIDE GLUCOSE 147 MG/DL (80-115)
[2017-06-07 12:16] LABS: HEPATITIS B SURFACE ANTIBODY NEGATIVE (POSITIVE)
[2017-06-07 12:27] LABS: HEPATITIS B SURFACE ANTIGEN NEGATIVE (NEGATIVE)
[2017-06-07 12:55] LABS: HEPATITIS B CORE ANTIBODY IGM NEGATIVE (NEGATIVE); HEPATITIS C VIRUS ABY INDEX 0.1 INDEX (<0.8)
[2017-06-07] MEDS ORDERED: ROCURONIUM BROMIDE 50 MG/5 ML VIAL As Ordered ×2 (13:08→14:44)
[2017-06-07 15:44] LABS: HEMATOCRIT 30.1 % (42.0-52.0); HEMOGLOBIN 10.8 g/dl (13.5-17.5); MEAN CORPUSCULAR HEMOGLOBIN 33.5 pg (27.0-33.0); MEAN CORPUSCULAR HGB CONC 35.9 g/dl (32.0-36.5); MEAN CORPUSCULAR VOLUME 93.5 fl (80.0-96.0); RED BLOOD COUNT 3.22 10^6/uL (4.30-6.10); RED CELL DISTRIBUTION WIDTH 15.9 % (11.5-14.5); WHITE BLOOD COUNT 17.4 10^3/uL (4.0-10.0)
[2017-06-07] MEDS ORDERED: ONDANSETRON 4MG/2ML VIAL (J2405) IV (15:45)
[2017-06-07] MEDS: NS 1,000 ML IV (15:45)
[2017-06-07 15:46] LABS: POS COUNT POS FLAG
[2017-06-07 15:47] LABS: PLATELET COUNT, AUTOMATED 71 10^3/uL (150-450)
[2017-06-07] MEDS: MORPHINE 10 MG/ML 1ML VIAL (J2270) IV (15:52)
[2017-06-07] MEDS: fentaNYL 100 MCG/2 ML INJECTION (J3010) IV (15:53)
[2017-06-07] MEDS ORDERED: MIDAZOLAM INJ 2 MG/2 ML VIAL (J2250) IV (16:00)
[2017-06-07 16:05] LABS: ANION GAP 8 MEQ/L (8-16); BLOOD UREA NITROGEN 74 MG/DL (7-18); CALCIUM LEVEL 6.4 MG/DL (8.8-10.2); CARBON DIOXIDE LEVEL 24 MEQ/L (21-32); CHLORIDE LEVEL 109 MEQ/L (98-107); CREATININE FOR GFR 5.28 MG/DL (0.70-1.30); GLOMERULAR FILTRATION RATE 11.9 (>49); GLUCOSE, FASTING 165 MG/DL (70-100); SODIUM LEVEL 141 MEQ/L (136-145)
[2017-06-07 16:10] LABS: POTASSIUM SERUM 5.6 MEQ/L (3.5-5.1)
[2017-06-07 17:23] LABS: ABG BASE EXCESS -1.2 (-2.0-2.0); ABG HCO3 24.8 MEQ/L (22.0-26.0); ABG O2 SATURATION 99.2 % (95.0-99.0); ABG PARTIAL PRESSURE CO2 46.6 mmHg (35.0-45.0); ABG PARTIAL PRESSURE O2 151.4 mmHg (75.0-100.0); ABG STANDARD HCO3 23.5 MEQ/L (22.0-26.0); ABG TOTAL CO2 26.2 MEQ/L (23.0-31.0); ABG pH (ARTERIAL) 7.344 UNITS (7.350-7.450)
[2017-06-07 18:01] LABS: BEDSIDE GLUCOSE 115 MG/DL (80-115)
[2017-06-07] MEDS: AMINO AC/ELECTROLYTE/DEX/CALC 2,000 ML IV (19:04)
[2017-06-07] MEDS: FAT EMULSION IV 20% 500 ML IV (19:04)
[2017-06-07 19:09] LABS: ABG BASE EXCESS 0.4 (-2.0-2.0); ABG HCO3 24.3 MEQ/L (22.0-26.0); ABG O2 SATURATION 99.5 % (95.0-99.0); ABG PARTIAL PRESSURE CO2 36.5 mmHg (35.0-45.0); ABG PARTIAL PRESSURE O2 137.5 mmHg (75.0-100.0); ABG STANDARD HCO3 24.9 MEQ/L (22.0-26.0); ABG TOTAL CO2 25.4 MEQ/L (23.0-31.0); ABG pH (ARTERIAL) 7.441 UNITS (7.350-7.450)
[2017-06-07 21:04] LABS: IMMATURE PLATELET FRACTION % 12.8 % (0.0-10.9)
[2017-06-08 00:06] LABS: HEPARIN INDUCED PLATELET ABY 0.204 OD (0.000-0.400)
[2017-06-08 00:20] LABS: BEDSIDE GLUCOSE 165 MG/DL (80-115)
[2017-06-08] MEDS: CIPROFLOXACIN 400 MG in APPROPRIATE DILUENT 1 EA IV (02:15)
[2017-06-08] MEDS: MORPHINE 4 MG/ML 1ML VIAL/SYRINGE (J2270) IV ×3 (02:16→18:35)
[2017-06-08] MEDS: IPRATROPIUM 0.5MG/ALBUTEROL 2.5MG INH SOL UD 3ML (DUONEB)(J7620) NEB ×6 (02:57→23:04)
[2017-06-08] MEDS: METOPROLOL 5 MG/5 ML VIAL IV ×6 (03:21→23:21)
[2017-06-08 04:43] LABS: HEMATOCRIT 27.5 % (42.0-52.0); HEMOGLOBIN 9.7 g/dl (13.5-17.5); MEAN CORPUSCULAR HEMOGLOBIN 32.4 pg (27.0-33.0); MEAN CORPUSCULAR HGB CONC 35.3 g/dl (32.0-36.5); RED BLOOD COUNT 2.99 10^6/uL (4.30-6.10)
[2017-06-08 04:55] LABS: PLATELET COUNT, AUTOMATED 78 10^3/uL (150-450)
[2017-06-08 05:19] LABS: ALBUMIN 1.2 GM/DL (3.2-5.2); ALBUMIN/GLOBULIN RATIO 0.52 (1.00-1.93); ALKALINE PHOSPHATASE 35 U/L (45-117); ALT/SGPT 59 U/L (12-78); ANION GAP 8 MEQ/L (8-16); AST/SGOT 99 U/L (7-37); BILIRUBIN,TOTAL 0.3 MG/DL (0.2-1.0); BLOOD UREA NITROGEN 63 MG/DL (7-18); CALCIUM LEVEL 6.2 MG/DL (8.8-10.2); CARBON DIOXIDE LEVEL 25 MEQ/L (21-32); CHLORIDE LEVEL 106 MEQ/L (98-107); CHOLESTEROL LEVEL 69 MG/DL (< 200); CPK CREATINE PHOSPHOKINASE 1884 U/L (39-308); CREATININE FOR GFR 4.35 MG/DL (0.70-1.30); GLOMERULAR FILTRATION RATE 14.8 (>49); GLUCOSE, FASTING 166 MG/DL (70-100); LDH LACTATE DEHYDROGENASE 584 U/L (87-241); PHOSPHORUS LEVEL 3.5 MG/DL (2.5-4.9); POTASSIUM SERUM 4.8 MEQ/L (3.5-5.1); SODIUM LEVEL 139 MEQ/L (136-145); TOTAL PROTEIN 3.5 GM/DL (6.4-8.2); TRIGLYCERIDES LEVEL 204 MG/DL (<150)
[2017-06-08] MEDS: HumaLOG INSULIN (NovoLOG) PER UNIT SC ×4 (05:41→23:20)
[2017-06-08] MEDS: SODIUM CHLORIDE 0.9% INJ 10 ML SYR IV ×3 (05:41→20:10)
[2017-06-08] MEDS: HEPARIN SOD (PORCINE) 5000 UNITS/ML VIAL IV (05:42)
[2017-06-08 05:49] LABS: ABG BASE EXCESS -1.7 (-2.0-2.0); ABG HCO3 21.6 MEQ/L (22.0-26.0); ABG O2 SATURATION 97.9 % (95.0-99.0); ABG PARTIAL PRESSURE O2 100.7 mmHg (75.0-100.0); ABG TOTAL CO2 22.6 MEQ/L (23.0-31.0); ABG pH (ARTERIAL) 7.448 UNITS (7.350-7.450)
[2017-06-08] MEDS: metroNIDAZOLE 500 MG in APPROPRIATE DILUENT 1 EA IV ×3 (07:37→23:20)
[2017-06-08] MEDS: PANTOPRAZOLE 40MG INJ (PROTONIX) (C9113) IV ×2 (07:37→20:09)
[2017-06-08] MEDS: CHLORHEXIDINE ORAL RINSE 0.12%/15ML 120ML BOTTLE MT ×2 (07:38→20:10)
[2017-06-08 08:07] LABS: HEPATITIS B CORE ANTIBODY IGG Negative (Negative)
[2017-06-08 12:06] LABS: BEDSIDE GLUCOSE 181 MG/DL (80-115)
[2017-06-08 12:59] LABS: PARTIAL THROMBOPLASTIN TIME 101.2 SECONDS (26.8-37.9)
[2017-06-08] MEDS: FAT EMULSION IV 20% 500 ML IV (17:59)
[2017-06-08] MEDS: SODIUM CHLORIDE 23.4% INJ 16.2 MEQ, SODIUM ACETATE INJ 16.2 MEQ, SODIUM PHOSPHATE INJ 2... IV (17:59)
[2017-06-08] MEDS ORDERED: HumaLOG INSULIN (NovoLOG) PER UNIT SC (18:00)
[2017-06-08 18:18] LABS: BEDSIDE GLUCOSE 126 MG/DL (80-115)
[2017-06-08 18:20] LABS: PARTIAL THROMBOPLASTIN TIME 117.7 SECONDS (26.8-37.9)
[2017-06-08] MEDS: HEPARIN 1,000 UNITS/ML 10ML VIAL (FOR RADIOLOGY& DIALYSIS ONLY) IV (19:00)
[2017-06-08] MEDS: AMIODARONE HCL 150 MG in APPROPRIATE DILUENT 1 EA IV ×2 (20:09→21:45)
[2017-06-08] MEDS: HEPARIN DRIP 25,000 UNITS in APPROPRIATE DILUENT 1 EA IV (20:55)
[2017-06-08] MEDS: AMIODARONE HCL 360 MG in APPROPRIATE DILUENT 1 EA IV (22:03)
[2017-06-08 23:22] LABS: BEDSIDE GLUCOSE 153 MG/DL (80-115)
[2017-06-09 00:06] LABS: PARTIAL THROMBOPLASTIN TIME 88.1 SECONDS (26.8-37.9)
[2017-06-09] MEDS: CIPROFLOXACIN 400 MG in APPROPRIATE DILUENT 1 EA IV (01:26)
[2017-06-09] MEDS: MORPHINE 4 MG/ML 1ML VIAL/SYRINGE (J2270) IV ×3 (01:40→21:54)
[2017-06-09] MEDS: METOPROLOL 5 MG/5 ML VIAL IV ×6 (03:48→23:41)
[2017-06-09] MEDS: IPRATROPIUM 0.5MG/ALBUTEROL 2.5MG INH SOL UD 3ML (DUONEB)(J7620) NEB ×6 (04:06→23:32)
[2017-06-09 05:34] LABS: ABG BASE EXCESS 0.4 (-2.0-2.0); ABG HCO3 23.3 MEQ/L (22.0-26.0); ABG O2 SATURATION 96.8 % (95.0-99.0); ABG PARTIAL PRESSURE CO2 31.5 mmHg (35.0-45.0); ABG PARTIAL PRESSURE O2 88.6 mmHg (75.0-100.0); ABG STANDARD HCO3 24.8 MEQ/L (22.0-26.0); ABG TOTAL CO2 24.3 MEQ/L (23.0-31.0); ABG pH (ARTERIAL) 7.487 UNITS (7.350-7.450)
[2017-06-09] MEDS: SODIUM CHLORIDE 0.9% INJ 10 ML SYR IV ×3 (06:00→21:58)
[2017-06-09 06:21] LABS: BEDSIDE GLUCOSE 139 MG/DL (80-115)
[2017-06-09 06:21] LABS: HEMATOCRIT 24.9 % (42.0-52.0); MEAN CORPUSCULAR HEMOGLOBIN 32.6 pg (27.0-33.0); MEAN CORPUSCULAR HGB CONC 36.1 g/dl (32.0-36.5); MEAN CORPUSCULAR VOLUME 90.2 fl (80.0-96.0); PLATELET COUNT, AUTOMATED 107 10^3/uL (150-450); RED BLOOD COUNT 2.76 10^6/uL (4.30-6.10); RED CELL DISTRIBUTION WIDTH 15.7 % (11.5-14.5); WHITE BLOOD COUNT 21.9 10^3/uL (4.0-10.0)
[2017-06-09] MEDS: HumaLOG INSULIN (NovoLOG) PER UNIT SC ×4 (06:32→23:42)
[2017-06-09 06:39] LABS: PARTIAL THROMBOPLASTIN TIME 64.7 SECONDS (26.8-37.9)
[2017-06-09 07:03] LABS: ALBUMIN 1.2 GM/DL (3.2-5.2); ALBUMIN/GLOBULIN RATIO 0.48 (1.00-1.93); ALKALINE PHOSPHATASE 42 U/L (45-117); ALT/SGPT 51 U/L (12-78); ANION GAP 10 MEQ/L (8-16); AST/SGOT 84 U/L (7-37); BILIRUBIN,TOTAL 0.3 MG/DL (0.2-1.0); BLOOD UREA NITROGEN 59 MG/DL (7-18); CALCIUM LEVEL 6.8 MG/DL (8.8-10.2); CARBON DIOXIDE LEVEL 24 MEQ/L (21-32); CHLORIDE LEVEL 104 MEQ/L (98-107); CHOLESTEROL LEVEL 69 MG/DL (< 200); CPK CREATINE PHOSPHOKINASE 1389 U/L (39-308); CREATININE FOR GFR 3.71 MG/DL (0.70-1.30); GLOMERULAR FILTRATION RATE 17.8 (>49); GLUCOSE, FASTING 139 MG/DL (70-100); LDH LACTATE DEHYDROGENASE 539 U/L (87-241); MAGNESIUM LEVEL 2.2 MG/DL (1.8-2.4); PHOSPHORUS LEVEL 3.7 MG/DL (2.5-4.9); POTASSIUM SERUM 4.6 MEQ/L (3.5-5.1); SODIUM LEVEL 138 MEQ/L (136-145); TOTAL PROTEIN 3.7 GM/DL (6.4-8.2); TRIGLYCERIDES LEVEL 170 MG/DL (<150)
[2017-06-09] MEDS: metroNIDAZOLE 500 MG in APPROPRIATE DILUENT 1 EA IV ×3 (08:13→23:42)
[2017-06-09] MEDS: PANTOPRAZOLE 40MG INJ (PROTONIX) (C9113) IV ×2 (08:13→20:14)
[2017-06-09] MEDS: AMIODARONE HCL 360 MG in APPROPRIATE DILUENT 1 EA IV ×2 (08:14→20:47)
[2017-06-09] MEDS: CHLORHEXIDINE ORAL RINSE 0.12%/15ML 120ML BOTTLE MT ×2 (08:14→20:14)
[2017-06-09] MEDS: VANCOMYCIN HCL 1,000 MG, VIAL MATE ADAPTER 1 EACH in D5W 250 ML IV (10:19)
[2017-06-09 12:12] LABS: BEDSIDE GLUCOSE 154 MG/DL (80-115)
[2017-06-09] MEDS: DIGOXIN INJ 0.5 MG/2 ML AMP (J1160) IV (12:24)
[2017-06-09 12:41] LABS: PARTIAL THROMBOPLASTIN TIME 55.3 SECONDS (26.8-37.9)
[2017-06-09] MEDS: HEPARIN SOD (PORCINE) 5000 UNITS/ML VIAL IV ×2 (13:37→20:44)
[2017-06-09] MEDS: VANCOMYCIN HCL 500 MG in D5W MINI-BAG PLUS 100 ML IV (15:20)
[2017-06-09] MEDS: FAT EMULSION IV 20% 500 ML IV (18:21)
[2017-06-09] MEDS: SODIUM CHLORIDE 23.4% INJ 16.2 MEQ, SODIUM ACETATE INJ 16.2 MEQ, SODIUM PHOSPHATE INJ 2... IV (18:21)
[2017-06-09 18:38] LABS: BEDSIDE GLUCOSE 128 MG/DL (80-115)
[2017-06-09 20:16] LABS: PARTIAL THROMBOPLASTIN TIME 59.1 SECONDS (26.8-37.9)
[2017-06-09] MEDS: HEPARIN DRIP 25,000 UNITS in APPROPRIATE DILUENT 1 EA IV (20:43)
[2017-06-10] MEDS: MORPHINE 4 MG/ML 1ML VIAL/SYRINGE (J2270) IV ×3 (00:45→17:22)
[2017-06-10] MEDS: MIDAZOLAM INJ 2 MG/2 ML VIAL (J2250) IV ×2 (00:59→14:42)
[2017-06-10] MEDS: CIPROFLOXACIN 400 MG in APPROPRIATE DILUENT 1 EA IV (01:57)
[2017-06-10] MEDS: METOPROLOL 5 MG/5 ML VIAL IV ×6 (02:51→22:42)
[2017-06-10 02:55] LABS: BEDSIDE GLUCOSE 123 MG/DL (80-115)
[2017-06-10 03:19] LABS: PARTIAL THROMBOPLASTIN TIME 74.2 SECONDS (26.8-37.9)
[2017-06-10] MEDS: IPRATROPIUM 0.5MG/ALBUTEROL 2.5MG INH SOL UD 3ML (DUONEB)(J7620) NEB ×5 (03:58→20:22)
[2017-06-10 05:34] LABS: ABG BASE EXCESS -2.8 (-2.0-2.0); ABG HCO3 21.1 MEQ/L (22.0-26.0); ABG O2 SATURATION 93.4 % (95.0-99.0); ABG PARTIAL PRESSURE CO2 32.9 mmHg (35.0-45.0); ABG PARTIAL PRESSURE O2 70.7 mmHg (75.0-100.0); ABG STANDARD HCO3 22.1 MEQ/L (22.0-26.0); ABG TOTAL CO2 22.1 MEQ/L (23.0-31.0); ABG pH (ARTERIAL) 7.425 UNITS (7.350-7.450)
[2017-06-10 05:53] LABS: ALBUMIN 1.1 GM/DL (3.2-5.2); ALBUMIN/GLOBULIN RATIO 0.41 (1.00-1.93); ALKALINE PHOSPHATASE 51 U/L (45-117); ALT/SGPT 44 U/L (12-78); ANION GAP 12 MEQ/L (8-16); AST/SGOT 66 U/L (7-37); BILIRUBIN,TOTAL 0.3 MG/DL (0.2-1.0); BLOOD UREA NITROGEN 84 MG/DL (7-18); CALCIUM LEVEL 6.7 MG/DL (8.8-10.2); CARBON DIOXIDE LEVEL 21 MEQ/L (21-32); CHLORIDE LEVEL 100 MEQ/L (98-107); CHOLESTEROL LEVEL 69 MG/DL (< 200); CPK CREATINE PHOSPHOKINASE 898 U/L (39-308); CREATININE FOR GFR 4.28 MG/DL (0.70-1.30); GLOMERULAR FILTRATION RATE 15.1 (>49); GLUCOSE, FASTING 137 MG/DL (70-100); LDH LACTATE DEHYDROGENASE 474 U/L (87-241); MAGNESIUM LEVEL 2.5 MG/DL (1.8-2.4); PHOSPHORUS LEVEL 5.5 MG/DL (2.5-4.9); POTASSIUM SERUM 4.9 MEQ/L (3.5-5.1); SODIUM LEVEL 133 MEQ/L (136-145); TOTAL PROTEIN 3.8 GM/DL (6.4-8.2); TRIGLYCERIDES LEVEL 167 MG/DL (<150)
[2017-06-10] MEDS: HumaLOG INSULIN (NovoLOG) PER UNIT SC ×3 (06:04→18:25)
[2017-06-10] MEDS: SODIUM CHLORIDE 0.9% INJ 10 ML SYR IV ×3 (06:04→21:16)
[2017-06-10 07:05] LABS: BEDSIDE GLUCOSE 130 MG/DL (80-115)
[2017-06-10] MEDS: metroNIDAZOLE 500 MG in APPROPRIATE DILUENT 1 EA IV ×2 (07:31→16:52)
[2017-06-10 09:23] LABS: HEMATOCRIT 24.3 % (42.0-52.0); HEMOGLOBIN 8.8 g/dl (13.5-17.5); MEAN CORPUSCULAR HEMOGLOBIN 32.5 pg (27.0-33.0); MEAN CORPUSCULAR HGB CONC 36.2 g/dl (32.0-36.5); MEAN CORPUSCULAR VOLUME 89.7 fl (80.0-96.0); PLATELET COUNT, AUTOMATED 149 10^3/uL (150-450); RED BLOOD COUNT 2.71 10^6/uL (4.30-6.10); RED CELL DISTRIBUTION WIDTH 15.5 % (11.5-14.5); WHITE BLOOD COUNT 25.2 10^3/uL (4.0-10.0)
[2017-06-10] MEDS: CHLORHEXIDINE ORAL RINSE 0.12%/15ML 120ML BOTTLE MT ×2 (09:28→21:15)
[2017-06-10] MEDS: PANTOPRAZOLE 40MG INJ (PROTONIX) (C9113) IV ×2 (09:28→21:15)
[2017-06-10 09:38] LABS: PARTIAL THROMBOPLASTIN TIME 62.3 SECONDS (26.8-37.9)
[2017-06-10 12:09] LABS: BEDSIDE GLUCOSE 144 MG/DL (80-115)
[2017-06-10] MEDS: HEPARIN DRIP 25,000 UNITS in APPROPRIATE DILUENT 1 EA IV (13:29)
[2017-06-10] MEDS: POLYVINYL ALCOHOL OPHTH SOLN 15 ML(LIQUITEARS) OU ×3 (14:42→21:16)
[2017-06-10] MEDS: **VANCO AFTER HD** MISC XX (16:00)
[2017-06-10 16:15] LABS: PARTIAL THROMBOPLASTIN TIME 73.6 SECONDS (26.8-37.9)
[2017-06-10] MEDS: FAT EMULSION IV 20% 500 ML IV (17:21)
[2017-06-10] MEDS: SODIUM CHLORIDE IV (17:22)
[2017-06-10] MEDS: SODIUM ACETATE IV (17:22)
[2017-06-10] MEDS: [UNRECOGNIZED DRUG - OTHER] IV (17:22)
[2017-06-10] MEDS: FUROSEMIDE 100 MG/10 ML VIAL (J1940) IV (18:11)
[2017-06-10 19:45] LABS: BEDSIDE GLUCOSE 125 MG/DL (80-115)
[2017-06-10 22:30] LABS: PARTIAL THROMBOPLASTIN TIME 55.9 SECONDS (26.8-37.9)
[2017-06-10] MEDS: HEPARIN SOD (PORCINE) 5000 UNITS/ML VIAL IV (22:41)
[2017-06-11] MEDS: IPRATROPIUM 0.5MG/ALBUTEROL 2.5MG INH SOL UD 3ML (DUONEB)(J7620) NEB ×7 (00:05→23:33)
[2017-06-11] MEDS: HumaLOG INSULIN (NovoLOG) PER UNIT SC ×4 (00:26→18:18)
[2017-06-11] MEDS: metroNIDAZOLE 500 MG in APPROPRIATE DILUENT 1 EA IV ×3 (00:26→15:57)
[2017-06-11] MEDS: CIPROFLOXACIN 400 MG in APPROPRIATE DILUENT 1 EA IV (01:40)
[2017-06-11 02:10] LABS: BEDSIDE GLUCOSE 123 MG/DL (80-115)
[2017-06-11] MEDS: METOPROLOL 5 MG/5 ML VIAL IV ×6 (03:29→23:36)
[2017-06-11 05:21] LABS: HEMATOCRIT 22.2 % (42.0-52.0); HEMOGLOBIN 8.1 g/dl (13.5-17.5); MEAN CORPUSCULAR HEMOGLOBIN 31.9 pg (27.0-33.0); MEAN CORPUSCULAR HGB CONC 36.5 g/dl (32.0-36.5); MEAN CORPUSCULAR VOLUME 87.4 fl (80.0-96.0); PLATELET COUNT, AUTOMATED 182 10^3/uL (150-450); RED BLOOD COUNT 2.54 10^6/uL (4.30-6.10); RED CELL DISTRIBUTION WIDTH 15.6 % (11.5-14.5); WHITE BLOOD COUNT 24.1 10^3/uL (4.0-10.0)
[2017-06-11 05:45] LABS: PARTIAL THROMBOPLASTIN TIME 71.6 SECONDS (26.8-37.9)
[2017-06-11 05:46] LABS: ALBUMIN 1.2 GM/DL (3.2-5.2); ALBUMIN/GLOBULIN RATIO 0.33 (1.00-1.93); ALKALINE PHOSPHATASE 57 U/L (45-117); ALT/SGPT 33 U/L (12-78); ANION GAP 13 MEQ/L (8-16); AST/SGOT 38 U/L (7-37); BILIRUBIN,TOTAL 0.4 MG/DL (0.2-1.0); BLOOD UREA NITROGEN 103 MG/DL (7-18); CALCIUM LEVEL 7.2 MG/DL (8.8-10.2); CARBON DIOXIDE LEVEL 21 MEQ/L (21-32); CHLORIDE LEVEL 95 MEQ/L (98-107); CHOLESTEROL LEVEL 68 MG/DL (< 200); CPK CREATINE PHOSPHOKINASE 430 U/L (39-308); GLOMERULAR FILTRATION RATE 12.9 (>49); GLUCOSE, FASTING 110 MG/DL (70-100); LDH LACTATE DEHYDROGENASE 424 U/L (87-241); MAGNESIUM LEVEL 2.5 MG/DL (1.8-2.4); POTASSIUM SERUM 5.1 MEQ/L (3.5-5.1); SODIUM LEVEL 129 MEQ/L (136-145); TOTAL PROTEIN 4.8 GM/DL (6.4-8.2); TRIGLYCERIDES LEVEL 104 MG/DL (<150)
[2017-06-11 05:52] LABS: ABG BASE EXCESS -4.4 (-2.0-2.0); ABG HCO3 19.6 MEQ/L (22.0-26.0); ABG O2 SATURATION 95.7 % (95.0-99.0); ABG PARTIAL PRESSURE CO2 31.8 mmHg (35.0-45.0); ABG PARTIAL PRESSURE O2 80.6 mmHg (75.0-100.0); ABG STANDARD HCO3 20.8 MEQ/L (22.0-26.0); ABG TOTAL CO2 20.6 MEQ/L (23.0-31.0); ABG pH (ARTERIAL) 7.408 UNITS (7.350-7.450)
[2017-06-11] MEDS: SODIUM CHLORIDE 0.9% INJ 10 ML SYR IV ×3 (06:00→22:12)
[2017-06-11] MEDS: MIDAZOLAM INJ 2 MG/2 ML VIAL (J2250) IV (07:48)
[2017-06-11] MEDS: PANTOPRAZOLE 40MG INJ (PROTONIX) (C9113) IV ×2 (07:49→20:56)
[2017-06-11] MEDS: HEPARIN DRIP 25,000 UNITS in APPROPRIATE DILUENT 1 EA IV (07:51)
[2017-06-11] MEDS: MORPHINE 4 MG/ML 1ML VIAL/SYRINGE (J2270) IV ×5 (08:22→18:50)
[2017-06-11] MEDS: POLYVINYL ALCOHOL OPHTH SOLN 15 ML(LIQUITEARS) OU ×2 (08:22→18:54)
[2017-06-11] MEDS: CHLORHEXIDINE ORAL RINSE 0.12%/15ML 120ML BOTTLE MT ×2 (08:22→20:56)
[2017-06-11 08:43] LABS: VANCOMYCIN RANDOM 12.1 UG/ML
[2017-06-11] MEDS: VANCOMYCIN HCL 500 MG in D5W MINI-BAG PLUS 100 ML IV (10:42)
[2017-06-11] MEDS: AMIODARONE HCL 150 MG in APPROPRIATE DILUENT 1 EA IV ×2 (10:42→20:23)
[2017-06-11] MEDS: HEPARIN 1,000 UNITS/ML 10ML VIAL (FOR RADIOLOGY& DIALYSIS ONLY) XX (10:45)
[2017-06-11 11:28] LABS: PARTIAL THROMBOPLASTIN TIME 81.9 SECONDS (26.8-37.9)
[2017-06-11 12:39] LABS: BEDSIDE GLUCOSE 125 MG/DL (80-115)
[2017-06-11] MEDS: **VANCO AFTER HD** MISC XX (16:00)
[2017-06-11 17:08] LABS: IMMEDIATE SPIN CROSSMATCH 1 1
[2017-06-11] MEDS: SODIUM ACETATE IV (17:42)
[2017-06-11] MEDS: FAT EMULSION IV 20% 500 ML IV (17:42)
[2017-06-11] MEDS: SODIUM CHLORIDE IV (17:42)
[2017-06-11] MEDS: [UNRECOGNIZED DRUG - OTHER] IV (17:42)
[2017-06-11 18:21] LABS: BEDSIDE GLUCOSE 105 MG/DL (80-115)
[2017-06-11] MEDS: VANCOMYCIN HCL 1,000 MG, VIAL MATE ADAPTER 1 EACH in D5W 250 ML IV (20:56)
[2017-06-11] MEDS: BACITRACIN OINT 30GM TOP (21:00)
[2017-06-11] MEDS: DIGOXIN INJ 0.5 MG/2 ML AMP (J1160) IV (22:12)
[2017-06-12] MEDS: HumaLOG INSULIN (NovoLOG) PER UNIT SC ×4 (00:02→18:10)
[2017-06-12] MEDS: metroNIDAZOLE 500 MG in APPROPRIATE DILUENT 1 EA IV ×4 (00:02→23:57)
[2017-06-12] MEDS: MORPHINE 4 MG/ML 1ML VIAL/SYRINGE (J2270) IV ×8 (00:03→23:57)
[2017-06-12] MEDS: MIDAZOLAM INJ 2 MG/2 ML VIAL (J2250) IV ×6 (00:04→23:57)
[2017-06-12] MEDS: CIPROFLOXACIN 400 MG in APPROPRIATE DILUENT 1 EA IV (01:26)
[2017-06-12] MEDS: HEPARIN DRIP 25,000 UNITS in APPROPRIATE DILUENT 1 EA IV ×2 (01:32→16:21)
[2017-06-12 02:16] LABS: BEDSIDE GLUCOSE 122 MG/DL (80-115)
[2017-06-12] MEDS: METOPROLOL 5 MG/5 ML VIAL IV ×6 (03:38→23:00)
[2017-06-12] MEDS: IPRATROPIUM 0.5MG/ALBUTEROL 2.5MG INH SOL UD 3ML (DUONEB)(J7620) NEB ×6 (03:41→23:25)
[2017-06-12 05:27] LABS: HEMATOCRIT 23.1 % (42.0-52.0); HEMOGLOBIN 8.4 g/dl (13.5-17.5); MEAN CORPUSCULAR HEMOGLOBIN 31.6 pg (27.0-33.0); MEAN CORPUSCULAR HGB CONC 36.4 g/dl (32.0-36.5); MEAN CORPUSCULAR VOLUME 86.8 fl (80.0-96.0); PLATELET COUNT, AUTOMATED 215 10^3/uL (150-450); RED BLOOD COUNT 2.66 10^6/uL (4.30-6.10); RED CELL DISTRIBUTION WIDTH 14.9 % (11.5-14.5); WHITE BLOOD COUNT 17.5 10^3/uL (4.0-10.0)
[2017-06-12 05:37] LABS: PARTIAL THROMBOPLASTIN TIME 72.8 SECONDS (26.8-37.9)
[2017-06-12 05:47] LABS: ALBUMIN/GLOBULIN RATIO 0.28 (1.00-1.93); ALKALINE PHOSPHATASE 55 U/L (45-117); ALT/SGPT 27 U/L (12-78); ANION GAP 10 MEQ/L (8-16); AST/SGOT 27 U/L (7-37); BILIRUBIN,TOTAL 0.4 MG/DL (0.2-1.0); BLOOD UREA NITROGEN 69 MG/DL (7-18); CALCIUM LEVEL 7.1 MG/DL (8.8-10.2); CARBON DIOXIDE LEVEL 25 MEQ/L (21-32); CHLORIDE LEVEL 99 MEQ/L (98-107); CREATININE FOR GFR 3.36 MG/DL (0.70-1.30); GLUCOSE, FASTING 118 MG/DL (70-100); POTASSIUM SERUM 4.2 MEQ/L (3.5-5.1); SODIUM LEVEL 134 MEQ/L (136-145); TOTAL PROTEIN 4.6 GM/DL (6.4-8.2)
[2017-06-12 06:09] LABS: ABG BASE EXCESS 0.9 (-2.0-2.0); ABG O2 SATURATION 95.3 % (95.0-99.0); ABG PARTIAL PRESSURE CO2 32.3 mmHg (35.0-45.0); ABG PARTIAL PRESSURE O2 77.6 mmHg (75.0-100.0); ABG STANDARD HCO3 25.3 MEQ/L (22.0-26.0); ABG pH (ARTERIAL) 7.489 UNITS (7.350-7.450)
[2017-06-12] MEDS: SODIUM CHLORIDE 0.9% INJ 10 ML SYR IV ×3 (06:35→22:00)
[2017-06-12] MEDS: PANTOPRAZOLE 40MG INJ (PROTONIX) (C9113) IV ×2 (08:10→20:42)
[2017-06-12] MEDS: CHLORHEXIDINE ORAL RINSE 0.12%/15ML 120ML BOTTLE MT ×2 (08:10→20:48)
[2017-06-12] MEDS: BACITRACIN OINT 30GM TOP ×2 (08:11→20:48)
[2017-06-12] MEDS: AMIODARONE HCL 150 MG in APPROPRIATE DILUENT 1 EA IV (08:55)
[2017-06-12 09:48] LABS: MAGNESIUM LEVEL 2.2 MG/DL (1.8-2.4); PHOSPHORUS LEVEL 5.2 MG/DL (2.5-4.9)
[2017-06-12 11:51] LABS: BEDSIDE GLUCOSE 117 MG/DL (80-115)
[2017-06-12] MEDS: **VANCO AFTER HD** MISC XX (16:00)
[2017-06-12 17:52] LABS: BEDSIDE GLUCOSE 131 MG/DL (80-115)
[2017-06-12] MEDS: SODIUM CHLORIDE IV (18:10)
[2017-06-12] MEDS: [UNRECOGNIZED DRUG - OTHER] IV (18:10)
[2017-06-12] MEDS: SODIUM ACETATE IV (18:10)
[2017-06-12] MEDS: FAT EMULSION IV 20% 500 ML IV (18:11)
[2017-06-13] MEDS: HumaLOG INSULIN (NovoLOG) PER UNIT SC ×4 (00:14→18:22)
[2017-06-13 00:16] LABS: BEDSIDE GLUCOSE 131 MG/DL (80-115)
[2017-06-13] MEDS: CIPROFLOXACIN 400 MG in APPROPRIATE DILUENT 1 EA IV (01:09)
[2017-06-13] MEDS: METOPROLOL 5 MG/5 ML VIAL IV ×6 (03:16→22:04)
[2017-06-13] MEDS: IPRATROPIUM 0.5MG/ALBUTEROL 2.5MG INH SOL UD 3ML (DUONEB)(J7620) NEB ×6 (03:37→23:18)
[2017-06-13 04:47] LABS: HEMATOCRIT 23.2 % (42.0-52.0); HEMOGLOBIN 8.5 g/dl (13.5-17.5); MEAN CORPUSCULAR HEMOGLOBIN 32.2 pg (27.0-33.0); MEAN CORPUSCULAR HGB CONC 36.6 g/dl (32.0-36.5); MEAN CORPUSCULAR VOLUME 87.9 fl (80.0-96.0); PLATELET COUNT, AUTOMATED 274 10^3/uL (150-450); RED BLOOD COUNT 2.64 10^6/uL (4.30-6.10); WHITE BLOOD COUNT 14.9 10^3/uL (4.0-10.0)
[2017-06-13 05:05] LABS: ALBUMIN 1.1 GM/DL (3.2-5.2); ALBUMIN/GLOBULIN RATIO 0.28 (1.00-1.93); ALKALINE PHOSPHATASE 56 U/L (45-117); ALT/SGPT 24 U/L (12-78); ANION GAP 12 MEQ/L (8-16); AST/SGOT 27 U/L (7-37); BILIRUBIN,TOTAL 0.5 MG/DL (0.2-1.0); BLOOD UREA NITROGEN 92 MG/DL (7-18); CALCIUM LEVEL 7.2 MG/DL (8.8-10.2); CARBON DIOXIDE LEVEL 24 MEQ/L (21-32); CHLORIDE LEVEL 97 MEQ/L (98-107); CREATININE FOR GFR 4.28 MG/DL (0.70-1.30); GLOMERULAR FILTRATION RATE 15.1 (>49); GLUCOSE, FASTING 109 MG/DL (70-100); POTASSIUM SERUM 3.9 MEQ/L (3.5-5.1); SODIUM LEVEL 133 MEQ/L (136-145)
[2017-06-13 05:09] LABS: PARTIAL THROMBOPLASTIN TIME 78.4 SECONDS (26.8-37.9)
[2017-06-13] MEDS: SODIUM CHLORIDE 0.9% INJ 10 ML SYR IV ×3 (06:22→21:06)
[2017-06-13] MEDS: MORPHINE 4 MG/ML 1ML VIAL/SYRINGE (J2270) IV ×6 (06:42→20:41)
[2017-06-13] MEDS: HEPARIN DRIP 25,000 UNITS in APPROPRIATE DILUENT 1 EA IV ×2 (07:00→20:42)
[2017-06-13] MEDS: metroNIDAZOLE 500 MG in APPROPRIATE DILUENT 1 EA IV ×2 (08:45→15:15)
[2017-06-13] MEDS: PANTOPRAZOLE 40MG INJ (PROTONIX) (C9113) IV ×2 (08:45→20:40)
[2017-06-13] MEDS: AMIODARONE HCL 150 MG in APPROPRIATE DILUENT 1 EA IV (08:46)
[2017-06-13] MEDS: BACITRACIN OINT 30GM TOP (09:00)
[2017-06-13 09:16] LABS: ABG BASE EXCESS -0.4 (-2.0-2.0); ABG HCO3 22.6 MEQ/L (22.0-26.0); ABG O2 SATURATION 97.5 % (95.0-99.0); ABG PARTIAL PRESSURE CO2 30.7 mmHg (35.0-45.0); ABG PARTIAL PRESSURE O2 95.2 mmHg (75.0-100.0); ABG STANDARD HCO3 24.1 MEQ/L (22.0-26.0); ABG TOTAL CO2 23.6 MEQ/L (23.0-31.0); ABG pH (ARTERIAL) 7.485 UNITS (7.350-7.450)
[2017-06-13] MEDS: HEPARIN 1,000 UNITS/ML 10ML VIAL (FOR RADIOLOGY& DIALYSIS ONLY) XX (10:00)
[2017-06-13] MEDS: BLISTEX OINTMENT TOP ×3 (10:41→21:06)
[2017-06-13 12:25] LABS: MAGNESIUM LEVEL 2.1 MG/DL (1.8-2.4); PHOSPHORUS LEVEL 5.7 MG/DL (2.5-4.9)
[2017-06-13 12:28] LABS: BEDSIDE GLUCOSE 128 MG/DL (80-115)
[2017-06-13 14:31] LABS: VANCOMYCIN RANDOM 13.1 UG/ML
[2017-06-13] MEDS: **VANCO AFTER HD** MISC XX (16:00)
[2017-06-13] MEDS: SODIUM CHLORIDE IV (18:20)
[2017-06-13] MEDS: SODIUM ACETATE IV (18:20)
[2017-06-13] MEDS: [UNRECOGNIZED DRUG - OTHER] IV (18:20)
[2017-06-13] MEDS: FAT EMULSION IV 20% 500 ML IV (18:20)
[2017-06-13 18:23] LABS: BEDSIDE GLUCOSE 108 MG/DL (80-115)
[2017-06-13] MEDS: VANCOMYCIN HCL 1,000 MG, VIAL MATE ADAPTER 1 EACH in D5W 250 ML IV ×2 (19:18→20:41)
[2017-06-14] MEDS: HumaLOG INSULIN (NovoLOG) PER UNIT SC ×3 (00:48→18:39)
[2017-06-14] MEDS: metroNIDAZOLE 500 MG in APPROPRIATE DILUENT 1 EA IV ×4 (00:49→23:06)
[2017-06-14] MEDS: MORPHINE 4 MG/ML 1ML VIAL/SYRINGE (J2270) IV ×7 (00:51→21:41)
[2017-06-14 00:55] LABS: BEDSIDE GLUCOSE 123 MG/DL (80-115)
[2017-06-14] MEDS: CIPROFLOXACIN 400 MG in APPROPRIATE DILUENT 1 EA IV (02:21)
[2017-06-14] MEDS: IPRATROPIUM 0.5MG/ALBUTEROL 2.5MG INH SOL UD 3ML (DUONEB)(J7620) NEB ×6 (03:28→23:59)
[2017-06-14] MEDS: METOPROLOL 5 MG/5 ML VIAL IV ×6 (03:55→23:06)
[2017-06-14 05:23] LABS: MEAN CORPUSCULAR HEMOGLOBIN 31.4 pg (27.0-33.0); MEAN CORPUSCULAR HGB CONC 34.8 g/dl (32.0-36.5); MEAN CORPUSCULAR VOLUME 90.2 fl (80.0-96.0); PLATELET COUNT, AUTOMATED 307 10^3/uL (150-450); RED BLOOD COUNT 2.55 10^6/uL (4.30-6.10); RED CELL DISTRIBUTION WIDTH 15.2 % (11.5-14.5); WHITE BLOOD COUNT 14.9 10^3/uL (4.0-10.0)
[2017-06-14 05:25] LABS: IONIZED CALCIUM 4.2 MG/DL (4.5-5.3)
[2017-06-14 05:40] LABS: VANCOMYCIN RANDOM 31.8 UG/ML
[2017-06-14 06:07] LABS: ALBUMIN 1.1 GM/DL (3.2-5.2); ALBUMIN/GLOBULIN RATIO 0.33 (1.00-1.93); ALKALINE PHOSPHATASE 65 U/L (45-117); ALT/SGPT 18 U/L (12-78); ANION GAP 9 MEQ/L (8-16); AST/SGOT 21 U/L (7-37); BILIRUBIN,TOTAL 0.6 MG/DL (0.2-1.0); BLOOD UREA NITROGEN 61 MG/DL (7-18); CALCIUM LEVEL 7.1 MG/DL (8.8-10.2); CARBON DIOXIDE LEVEL 27 MEQ/L (21-32); CHLORIDE LEVEL 101 MEQ/L (98-107); CREATININE FOR GFR 3.18 MG/DL (0.70-1.30); GLOMERULAR FILTRATION RATE 21.3 (>49); GLUCOSE, FASTING 109 MG/DL (70-100); MAGNESIUM LEVEL 1.9 MG/DL (1.8-2.4); PHOSPHORUS LEVEL 4.4 MG/DL (2.5-4.9); POTASSIUM SERUM 3.9 MEQ/L (3.5-5.1); SODIUM LEVEL 137 MEQ/L (136-145); TOTAL PROTEIN 4.4 GM/DL (6.4-8.2)
[2017-06-14] MEDS: SODIUM CHLORIDE 0.9% INJ 10 ML SYR IV ×4 (06:16→21:42)
[2017-06-14] MEDS: AMIODARONE HCL 150 MG in APPROPRIATE DILUENT 1 EA IV (07:58)
[2017-06-14] MEDS: PANTOPRAZOLE 40MG INJ (PROTONIX) (C9113) IV ×2 (07:58→20:06)
[2017-06-14] MEDS: BLISTEX OINTMENT TOP ×3 (08:07→20:07)
[2017-06-14] MEDS: HEPARIN DRIP 25,000 UNITS in APPROPRIATE DILUENT 1 EA IV (09:58)
[2017-06-14 10:07] LABS: ABG BASE EXCESS 1.9 (-2.0-2.0); ABG HCO3 24.7 MEQ/L (22.0-26.0); ABG O2 SATURATION 97.8 % (95.0-99.0); ABG PARTIAL PRESSURE CO2 31.3 mmHg (35.0-45.0); ABG PARTIAL PRESSURE O2 98.2 mmHg (75.0-100.0); ABG STANDARD HCO3 26.2 MEQ/L (22.0-26.0); ABG TOTAL CO2 25.7 MEQ/L (23.0-31.0); ABG pH (ARTERIAL) 7.515 UNITS (7.350-7.450)
[2017-06-14] MEDS ORDERED: LIDOCAINE 2% MDV 20 ML VIAL As Ordered (11:21)
[2017-06-14] MEDS ORDERED: HEPARIN 1,000 UNITS/ML 10ML VIAL (FOR RADIOLOGY& DIALYSIS ONLY) As Ordered (11:22)
[2017-06-14 14:16] LABS: PROTHROMBIN TIME 18.5 SECONDS (12.4-14.5)
[2017-06-14 16:26] LABS: IMMEDIATE SPIN CROSSMATCH 1 1
[2017-06-14] MEDS ORDERED: SODIUM CHLORIDE 0.9% INJ 10 ML SYR IV (17:00)
[2017-06-14] MEDS: [UNRECOGNIZED DRUG - OTHER] IV (18:35)
[2017-06-14] MEDS: SODIUM CHLORIDE IV (18:35)
[2017-06-14] MEDS: SODIUM PHOSPHATE IV (18:35)
[2017-06-14] MEDS: FAT EMULSION IV 20% 500 ML IV (18:35)
[2017-06-14 18:45] LABS: BEDSIDE GLUCOSE 99 MG/DL (80-115)
[2017-06-14] MEDS: HEPARIN SOD (PORCINE) 5000 UNITS/ML VIAL SQ (20:06)
[2017-06-15 00:11] LABS: IONIZED CALCIUM 4.2 MG/DL (4.5-5.3)
[2017-06-15 00:32] LABS: ANION GAP 8 MEQ/L (8-16); BLOOD UREA NITROGEN 66 MG/DL (7-18); CALCIUM LEVEL 7.1 MG/DL (8.8-10.2); CARBON DIOXIDE LEVEL 28 MEQ/L (21-32); CHLORIDE LEVEL 101 MEQ/L (98-107); CREATININE FOR GFR 3.04 MG/DL (0.70-1.30); GLOMERULAR FILTRATION RATE 22.4 (>49); GLUCOSE, FASTING 111 MG/DL (70-100); PHOSPHORUS LEVEL 4.3 MG/DL (2.5-4.9); POTASSIUM SERUM 3.9 MEQ/L (3.5-5.1); SODIUM LEVEL 137 MEQ/L (136-145)
[2017-06-15 00:42] LABS: PARTIAL THROMBOPLASTIN TIME 38.5 SECONDS (26.8-37.9)
[2017-06-15] MEDS: KCL 20MEQ IN 100ML SWI (KRUN) 20 MEQ in APPROPRIATE DILUENT 1 EA IV (01:36)
[2017-06-15] MEDS: CIPROFLOXACIN 400 MG in APPROPRIATE DILUENT 1 EA IV (02:48)
[2017-06-15] MEDS: METOPROLOL 5 MG/5 ML VIAL IV ×6 (03:49→23:58)
[2017-06-15] MEDS: CALCIUM GLUCONATE 1,000 MG in NS 100 ML IV ×3 (03:49→21:26)
[2017-06-15] MEDS: MORPHINE 4 MG/ML 1ML VIAL/SYRINGE (J2270) IV ×6 (03:49→20:20)
[2017-06-15] MEDS: IPRATROPIUM 0.5MG/ALBUTEROL 2.5MG INH SOL UD 3ML (DUONEB)(J7620) NEB ×5 (04:05→20:15)
[2017-06-15] MEDS: HumaLOG INSULIN (NovoLOG) PER UNIT SC ×4 (06:00→17:55)
[2017-06-15] MEDS: SODIUM CHLORIDE 0.9% INJ 10 ML SYR IV ×2 (06:19→17:56)
[2017-06-15 06:20] LABS: BEDSIDE GLUCOSE 99 MG/DL (80-115)
[2017-06-15 06:42] LABS: VANCOMYCIN RANDOM 21.8 UG/ML
[2017-06-15] MEDS: metroNIDAZOLE 500 MG in APPROPRIATE DILUENT 1 EA IV ×2 (07:29→16:36)
[2017-06-15 08:19] LABS: HEMATOCRIT 24.9 % (42.0-52.0); HEMOGLOBIN 8.6 g/dl (13.5-17.5); MEAN CORPUSCULAR HGB CONC 34.5 g/dl (32.0-36.5); MEAN CORPUSCULAR VOLUME 92.6 fl (80.0-96.0); PLATELET COUNT, AUTOMATED 275 10^3/uL (150-450); RED BLOOD COUNT 2.69 10^6/uL (4.30-6.10); RED CELL DISTRIBUTION WIDTH 15.8 % (11.5-14.5); WHITE BLOOD COUNT 14.6 10^3/uL (4.0-10.0)
[2017-06-15 08:24] LABS: ADD MANUAL DIFFER YES; DIFF SLIDE NUMBER 59; POSITIVE MORPH POS FLAG
[2017-06-15 08:30] LABS: IONIZED CALCIUM 4.3 MG/DL (4.5-5.3)
[2017-06-15 08:33] LABS: PARTIAL THROMBOPLASTIN TIME 36.7 SECONDS (26.8-37.9)
[2017-06-15] MEDS: AMIODARONE HCL 150 MG in APPROPRIATE DILUENT 1 EA IV ×3 (08:41→20:21)
[2017-06-15] MEDS: PANTOPRAZOLE 40MG INJ (PROTONIX) (C9113) IV ×2 (08:42→20:21)
[2017-06-15] MEDS: HEPARIN SOD (PORCINE) 5000 UNITS/ML VIAL SQ ×2 (08:42→20:21)
[2017-06-15] MEDS: BLISTEX OINTMENT TOP ×3 (08:43→20:22)
[2017-06-15 08:45] LABS: PHOSPHORUS LEVEL 4.6 MG/DL (2.5-4.9)
[2017-06-15 08:48] LABS: ALBUMIN 1.2 GM/DL (3.2-5.2); ALBUMIN/GLOBULIN RATIO 0.33 (1.00-1.93); ALKALINE PHOSPHATASE 70 U/L (45-117); ALT/SGPT 21 U/L (12-78); ANION GAP 8 MEQ/L (8-16); AST/SGOT 24 U/L (7-37); BILIRUBIN,TOTAL 0.6 MG/DL (0.2-1.0); BLOOD UREA NITROGEN 59 MG/DL (7-18); CALCIUM LEVEL 7.3 MG/DL (8.8-10.2); CARBON DIOXIDE LEVEL 27 MEQ/L (21-32); CHLORIDE LEVEL 102 MEQ/L (98-107); CREATININE FOR GFR 2.65 MG/DL (0.70-1.30); GLOMERULAR FILTRATION RATE 26.3 (>49); GLUCOSE, FASTING 295 MG/DL (70-100); POTASSIUM SERUM 4.2 MEQ/L (3.5-5.1); SODIUM LEVEL 137 MEQ/L (136-145); TOTAL PROTEIN 4.8 GM/DL (6.4-8.2)
[2017-06-15 09:24] LABS: BANDS 10 % (< 11); EOSINOPHILS 3 % (0-5); LYMPHOCYTES 5 % (16-52); MONOCYTES 3 % (0-8); MYELOCYTES 1 % (0-0); NEUTROPHILS 78 % (35-75); PLATELET ESTIMATE NORMAL (NORMAL)
[2017-06-15 09:26] LABS: ANISOCYTOSIS 1+; HYPOCHROMASIA 1+; POIKILOCYTOSIS 1+
[2017-06-15] MEDS: CALCIUM GLUCONATE 1,000 MG in D5W MINI-BAG PLUS 100 ML IV ×2 (10:11→11:58)
[2017-06-15] MEDS: FUROSEMIDE 100 MG/10 ML VIAL (J1940) IV (10:28)
[2017-06-15] MEDS: HEPARIN 25,000 UNITS/250 ML D5W BAG (100 UNITS/ML) XX (12:03)
[2017-06-15 12:47] LABS: BEDSIDE GLUCOSE 125 MG/DL (80-115)
[2017-06-15] MEDS: VANCOMYCIN HCL 1,000 MG, VIAL MATE ADAPTER 1 EACH in D5W 250 ML IV (13:07)
[2017-06-15 14:45] LABS: IMMEDIATE SPIN CROSSMATCH 1 1
[2017-06-15 17:54] LABS: BEDSIDE GLUCOSE 112 MG/DL (80-115)
[2017-06-15] MEDS: SODIUM ACETATE IV (17:56)
[2017-06-15] MEDS: SODIUM CHLORIDE IV (17:56)
[2017-06-15] MEDS: [UNRECOGNIZED DRUG - OTHER] IV (17:56)
[2017-06-15] MEDS: FAT EMULSION IV 20% 500 ML IV (17:56)
[2017-06-15 19:54] LABS: HEMATOCRIT 26.9 % (42.0-52.0); HEMOGLOBIN 9.1 g/dl (13.5-17.5); MEAN CORPUSCULAR HEMOGLOBIN 30.6 pg (27.0-33.0); MEAN CORPUSCULAR HGB CONC 33.8 g/dl (32.0-36.5); MEAN CORPUSCULAR VOLUME 90.6 fl (80.0-96.0); PLATELET COUNT, AUTOMATED 267 10^3/uL (150-450); RED BLOOD COUNT 2.97 10^6/uL (4.30-6.10); RED CELL DISTRIBUTION WIDTH 15.4 % (11.5-14.5); WHITE BLOOD COUNT 13.7 10^3/uL (4.0-10.0)
[2017-06-15 19:57] LABS: IONIZED CALCIUM 4.4 MG/DL (4.5-5.3)
[2017-06-15 20:11] LABS: PARTIAL THROMBOPLASTIN TIME 38.8 SECONDS (26.8-37.9)
[2017-06-15 20:27] LABS: ANION GAP 8 MEQ/L (8-16); BLOOD UREA NITROGEN 55 MG/DL (7-18); CALCIUM LEVEL 7.5 MG/DL (8.8-10.2); CARBON DIOXIDE LEVEL 27 MEQ/L (21-32); CHLORIDE LEVEL 104 MEQ/L (98-107); CREATININE FOR GFR 2.37 MG/DL (0.70-1.30); GLOMERULAR FILTRATION RATE 29.9 (>49); GLUCOSE, FASTING 90 MG/DL (70-100); MAGNESIUM LEVEL 2.1 MG/DL (1.8-2.4); PHOSPHORUS LEVEL 3.9 MG/DL (2.5-4.9); SODIUM LEVEL 139 MEQ/L (136-145)
[2017-06-15] MEDS ORDERED: CALCIUM GLUCONATE 1,000 MG in NS 100 ML IV (20:45)
[2017-06-15] MEDS: HEPARIN DRIP XX (22:28)
[2017-06-15] MEDS: DILUENT XX (22:28)
[2017-06-16] MEDS: MORPHINE 4 MG/ML 1ML VIAL/SYRINGE (J2270) IV ×6 (00:04→19:46)
[2017-06-16] MEDS: IPRATROPIUM 0.5MG/ALBUTEROL 2.5MG INH SOL UD 3ML (DUONEB)(J7620) NEB ×7 (00:09→23:52)
[2017-06-16] MEDS: HumaLOG INSULIN (NovoLOG) PER UNIT SC ×5 (00:16→23:40)
[2017-06-16] MEDS: metroNIDAZOLE 500 MG in APPROPRIATE DILUENT 1 EA IV ×4 (00:16→23:39)
[2017-06-16 01:27] LABS: BEDSIDE GLUCOSE 121 MG/DL (80-115)
[2017-06-16] MEDS: CIPROFLOXACIN 400 MG in APPROPRIATE DILUENT 1 EA IV (01:32)
[2017-06-16] MEDS: HEPARIN DRIP XX ×4 (01:55→13:22)
[2017-06-16] MEDS: DILUENT XX ×4 (01:55→13:22)
[2017-06-16] MEDS: METOPROLOL 5 MG/5 ML VIAL IV ×6 (02:46→23:39)
[2017-06-16 04:27] LABS: IONIZED CALCIUM 4.3 MG/DL (4.5-5.3)
[2017-06-16 04:38] LABS: PARTIAL THROMBOPLASTIN TIME 46.3 SECONDS (26.8-37.9)
[2017-06-16 04:51] LABS: ANION GAP 9 MEQ/L (8-16); BLOOD UREA NITROGEN 47 MG/DL (7-18); CALCIUM LEVEL 7.3 MG/DL (8.8-10.2); CARBON DIOXIDE LEVEL 26 MEQ/L (21-32); CHLORIDE LEVEL 105 MEQ/L (98-107); CREATININE FOR GFR 2.17 MG/DL (0.70-1.30); GLOMERULAR FILTRATION RATE 33.1 (>49); GLUCOSE, FASTING 106 MG/DL (70-100); PHOSPHORUS LEVEL 3.7 MG/DL (2.5-4.9); POTASSIUM SERUM 4.1 MEQ/L (3.5-5.1); SODIUM LEVEL 140 MEQ/L (136-145)
[2017-06-16] MEDS: CALCIUM GLUCONATE 1,000 MG in NS 100 ML IV ×3 (04:55→14:10)
[2017-06-16] MEDS: SODIUM CHLORIDE 0.9% INJ 10 ML SYR IV ×2 (06:00→18:00)
[2017-06-16 07:28] LABS: BEDSIDE GLUCOSE 117 MG/DL (80-115)
[2017-06-16] MEDS: FUROSEMIDE 100 MG/10 ML VIAL (J1940) IV ×2 (07:44→16:19)
[2017-06-16] MEDS: PANTOPRAZOLE 40MG INJ (PROTONIX) (C9113) IV ×2 (09:14→21:09)
[2017-06-16] MEDS: AMIODARONE HCL 150 MG in APPROPRIATE DILUENT 1 EA IV ×4 (09:14→21:09)
[2017-06-16] MEDS: HEPARIN SOD (PORCINE) 5000 UNITS/ML VIAL SQ ×2 (09:15→21:13)
[2017-06-16] MEDS: BLISTEX OINTMENT TOP ×3 (09:15→21:09)
[2017-06-16] MEDS: VANCOMYCIN HCL 1,000 MG, VIAL MATE ADAPTER 1 EACH in D5W 250 ML IV (12:18)
[2017-06-16 12:22] LABS: BEDSIDE GLUCOSE 112 MG/DL (80-115)
[2017-06-16 12:55] LABS: HEMATOCRIT 26.1 % (42.0-52.0); HEMOGLOBIN 8.8 g/dl (13.5-17.5); MEAN CORPUSCULAR HEMOGLOBIN 30.9 pg (27.0-33.0); MEAN CORPUSCULAR HGB CONC 33.7 g/dl (32.0-36.5); MEAN CORPUSCULAR VOLUME 91.6 fl (80.0-96.0); PLATELET COUNT, AUTOMATED 264 10^3/uL (150-450); RED BLOOD COUNT 2.85 10^6/uL (4.30-6.10); RED CELL DISTRIBUTION WIDTH 15.7 % (11.5-14.5); WHITE BLOOD COUNT 12.5 10^3/uL (4.0-10.0)
[2017-06-16 12:57] LABS: IONIZED CALCIUM 4.4 MG/DL (4.5-5.3)
[2017-06-16 13:07] LABS: PARTIAL THROMBOPLASTIN TIME 48.1 SECONDS (26.8-37.9)
[2017-06-16 13:11] LABS: ANION GAP 8 MEQ/L (8-16); BLOOD UREA NITROGEN 44 MG/DL (7-18); CALCIUM LEVEL 7.4 MG/DL (8.8-10.2); CARBON DIOXIDE LEVEL 26 MEQ/L (21-32); CHLORIDE LEVEL 105 MEQ/L (98-107); CREATININE FOR GFR 2.02 MG/DL (0.70-1.30); GLOMERULAR FILTRATION RATE 35.9 (>49); GLUCOSE, FASTING 114 MG/DL (70-100); MAGNESIUM LEVEL 2.2 MG/DL (1.8-2.4); PHOSPHORUS LEVEL 3.7 MG/DL (2.5-4.9); POTASSIUM SERUM 3.6 MEQ/L (3.5-5.1); SODIUM LEVEL 139 MEQ/L (136-145)
[2017-06-16] MEDS: SODIUM CHLORIDE IV (17:32)
[2017-06-16] MEDS: SODIUM ACETATE IV (17:32)
[2017-06-16] MEDS: [UNRECOGNIZED DRUG - OTHER] IV (17:32)
[2017-06-16] MEDS: FAT EMULSION IV 20% 500 ML IV (17:33)
[2017-06-16 18:02] LABS: BEDSIDE GLUCOSE 117 MG/DL (80-115)
[2017-06-16 23:52] LABS: BEDSIDE GLUCOSE 130 MG/DL (80-115)
[2017-06-17] MEDS: CIPROFLOXACIN 400 MG in APPROPRIATE DILUENT 1 EA IV (01:53)
[2017-06-17] MEDS: IPRATROPIUM 0.5MG/ALBUTEROL 2.5MG INH SOL UD 3ML (DUONEB)(J7620) NEB ×6 (02:38→23:03)
[2017-06-17] MEDS: METOPROLOL 5 MG/5 ML VIAL IV ×6 (03:00→23:11)
[2017-06-17 03:37] LABS: ABG HCO3 25.9 MEQ/L (22.0-26.0); ABG O2 SATURATION 88.2 % (95.0-99.0); ABG PARTIAL PRESSURE O2 67.4 mmHg (75.0-100.0); ABG STANDARD HCO3 22.7 MEQ/L (22.0-26.0); ABG TOTAL CO2 27.8 MEQ/L (23.0-31.0)
[2017-06-17 03:39] LABS: ABG PARTIAL PRESSURE CO2 61.6 mmHg (35.0-45.0); ABG pH (ARTERIAL) 7.242 UNITS (7.350-7.450)
[2017-06-17] MEDS ORDERED: ISOVUE-370 76% 100ML VIAL (Q9967) As Ordered (03:47)
[2017-06-17 03:52] LABS: ADD MANUAL DIFFER YES; DIFF SLIDE NUMBER 87; HEMATOCRIT 26.4 % (42.0-52.0); HEMOGLOBIN 8.8 g/dl (13.5-17.5); MEAN CORPUSCULAR HEMOGLOBIN 31.2 pg (27.0-33.0); MEAN CORPUSCULAR HGB CONC 33.3 g/dl (32.0-36.5); MEAN CORPUSCULAR VOLUME 93.6 fl (80.0-96.0); PLATELET COUNT, AUTOMATED 283 10^3/uL (150-450); POS COUNT POS FLAG; POSITIVE MORPH POS FLAG; RED BLOOD COUNT 2.82 10^6/uL (4.30-6.10); RED CELL DISTRIBUTION WIDTH 15.9 % (11.5-14.5); WHITE BLOOD COUNT 13.3 10^3/uL (4.0-10.0)
[2017-06-17 04:16] LABS: LACTIC ACID SEPSIS PROTOCOL 1.5 MMOL/L (0.4-2.0)
[2017-06-17 04:18] LABS: ANION GAP 7 MEQ/L (8-16); BLOOD UREA NITROGEN 56 MG/DL (7-18); CALCIUM LEVEL 7.4 MG/DL (8.8-10.2); CARBON DIOXIDE LEVEL 27 MEQ/L (21-32); CHLORIDE LEVEL 104 MEQ/L (98-107); CK-MB VALUE MASS 3.4 NG/ML (<3.6); CPK CREATINE PHOSPHOKINASE 34 U/L (39-308); CREATININE FOR GFR 2.57 MG/DL (0.70-1.30); GLOMERULAR FILTRATION RATE 27.2 (>49); GLUCOSE, FASTING 142 MG/DL (70-100); POTASSIUM SERUM 4.1 MEQ/L (3.5-5.1); SODIUM LEVEL 138 MEQ/L (136-145); TROPONIN I < 0.02 NG/ML (< 0.10)
[2017-06-17 04:26] LABS: BANDS 13 % (< 11); EOSINOPHILS 1 % (0-5); LYMPHOCYTES 11 % (16-52); MONOCYTES 13 % (0-8); MYELOCYTES 3 % (0-0); NEUTROPHILS 59 % (35-75); PLATELET ESTIMATE NORMAL (NORMAL)
[2017-06-17 04:27] LABS: ANISOCYTOSIS 1+
[2017-06-17 04:28] LABS: POIKILOCYTOSIS 1+
[2017-06-17 04:36] LABS: ABG BASE EXCESS -3.7 (-2.0-2.0); ABG O2 SATURATION 98.5 % (95.0-99.0); ABG PARTIAL PRESSURE CO2 42.9 mmHg (35.0-45.0); ABG PARTIAL PRESSURE O2 125.1 mmHg (75.0-100.0); ABG STANDARD HCO3 21.4 MEQ/L (22.0-26.0); ABG TOTAL CO2 23.3 MEQ/L (23.0-31.0); ABG pH (ARTERIAL) 7.328 UNITS (7.350-7.450)
[2017-06-17] MEDS: FUROSEMIDE 100 MG/10 ML VIAL (J1940) IV ×2 (05:42→10:50)
[2017-06-17] MEDS: SODIUM CHLORIDE 0.9% INJ 10 ML SYR IV ×2 (06:00→17:40)
[2017-06-17] MEDS: HumaLOG INSULIN (NovoLOG) PER UNIT SC ×4 (06:18→23:59)
[2017-06-17 06:22] LABS: BEDSIDE GLUCOSE 127 MG/DL (80-115)
[2017-06-17 08:22] LABS: ALKALINE PHOSPHATASE 94 U/L (45-117); ALT/SGPT 20 U/L (12-78); AST/SGOT 22 U/L (7-37); BILIRUBIN,TOTAL 0.6 MG/DL (0.2-1.0); PHOSPHORUS LEVEL 6.1 MG/DL (2.5-4.9)
[2017-06-17 08:23] LABS: ALBUMIN 1.3 GM/DL (3.2-5.2); ALBUMIN/GLOBULIN RATIO 0.28 (1.00-1.93); TOTAL PROTEIN 5.9 GM/DL (6.4-8.2); VANCOMYCIN RANDOM 23.6 UG/ML
[2017-06-17 08:29] LABS: MAGNESIUM LEVEL 2.1 MG/DL (1.8-2.4)
[2017-06-17] MEDS: metroNIDAZOLE 500 MG in APPROPRIATE DILUENT 1 EA IV ×3 (09:02→23:58)
[2017-06-17] MEDS: PANTOPRAZOLE 40MG INJ (PROTONIX) (C9113) IV ×2 (09:06→20:10)
[2017-06-17] MEDS: HEPARIN SOD (PORCINE) 5000 UNITS/ML VIAL SQ ×2 (09:06→20:10)
[2017-06-17] MEDS: AMIODARONE HCL 150 MG in APPROPRIATE DILUENT 1 EA IV ×4 (09:07→20:10)
[2017-06-17] MEDS: BLISTEX OINTMENT TOP ×3 (09:08→20:10)
[2017-06-17] MEDS: MORPHINE 4 MG/ML 1ML VIAL/SYRINGE (J2270) IV ×3 (10:51→21:01)
[2017-06-17] MEDS: HEPARIN 1,000 UNITS/ML 10ML VIAL (FOR RADIOLOGY& DIALYSIS ONLY) XX (11:30)
[2017-06-17] MEDS: HEPARIN 1,000 UNITS/ML 10ML VIAL (FOR RADIOLOGY& DIALYSIS ONLY) IV (11:30)
[2017-06-17 12:19] LABS: BEDSIDE GLUCOSE 150 MG/DL (80-115)
[2017-06-17] MEDS: **VANCO AFTER HD** MISC XX (16:00)
[2017-06-17] MEDS: VANCOMYCIN HCL 1,000 MG, VIAL MATE ADAPTER 1 EACH in D5W 250 ML IV (16:39)
[2017-06-17] MEDS: POLYVINYL ALCOHOL OPHTH SOLN 15 ML(LIQUITEARS) OU (17:19)
[2017-06-17 17:37] LABS: BEDSIDE GLUCOSE 150 MG/DL (80-115)
[2017-06-17] MEDS: [UNRECOGNIZED DRUG - OTHER] IV (17:41)
[2017-06-17] MEDS: SODIUM CHLORIDE IV (17:41)
[2017-06-17] MEDS: SODIUM ACETATE IV (17:41)
[2017-06-17] MEDS: FAT EMULSION IV 20% 500 ML IV (17:42)
[2017-06-18 00:13] LABS: BEDSIDE GLUCOSE 122 MG/DL (80-115)
[2017-06-18] MEDS: CIPROFLOXACIN 400 MG in APPROPRIATE DILUENT 1 EA IV (01:59)
[2017-06-18] MEDS: IPRATROPIUM 0.5MG/ALBUTEROL 2.5MG INH SOL UD 3ML (DUONEB)(J7620) NEB ×5 (03:09→20:14)
[2017-06-18] MEDS: METOPROLOL 5 MG/5 ML VIAL IV ×5 (03:15→20:45)
[2017-06-18] MEDS: MORPHINE 4 MG/ML 1ML VIAL/SYRINGE (J2270) IV ×3 (03:27→19:52)
[2017-06-18 05:21] LABS: MAGNESIUM LEVEL 1.8 MG/DL (1.8-2.4); PHOSPHORUS LEVEL 3.3 MG/DL (2.5-4.9)
[2017-06-18] MEDS: SODIUM CHLORIDE 0.9% INJ 10 ML SYR IV ×2 (06:21→19:19)
[2017-06-18] MEDS: HumaLOG INSULIN (NovoLOG) PER UNIT SC ×3 (06:21→19:26)
[2017-06-18 06:37] LABS: BEDSIDE GLUCOSE 109 MG/DL (80-115)
[2017-06-18] MEDS: metroNIDAZOLE 500 MG in APPROPRIATE DILUENT 1 EA IV ×2 (07:34→15:09)
[2017-06-18] MEDS: PANTOPRAZOLE 40MG INJ (PROTONIX) (C9113) IV ×2 (08:31→20:44)
[2017-06-18] MEDS: HEPARIN SOD (PORCINE) 5000 UNITS/ML VIAL SQ ×2 (08:31→20:44)
[2017-06-18] MEDS: AMIODARONE HCL 150 MG in APPROPRIATE DILUENT 1 EA IV ×4 (08:31→21:21)
[2017-06-18] MEDS: BLISTEX OINTMENT TOP ×3 (08:32→20:45)
[2017-06-18 09:02] LABS: ABG BASE EXCESS 3.3 (-2.0-2.0); ABG HCO3 25.6 MEQ/L (22.0-26.0); ABG O2 SATURATION 94.2 % (95.0-99.0); ABG PARTIAL PRESSURE CO2 30.1 mmHg (35.0-45.0); ABG PARTIAL PRESSURE O2 67.3 mmHg (75.0-100.0); ABG STANDARD HCO3 27.4 MEQ/L (22.0-26.0); ABG TOTAL CO2 26.6 MEQ/L (23.0-31.0); ABG pH (ARTERIAL) 7.548 UNITS (7.350-7.450)
[2017-06-18] MEDS ORDERED: MIDAZOLAM INJ 2 MG/2 ML VIAL (J2250) IV ×2 (09:45→10:00)
[2017-06-18 10:18] LABS: ALBUMIN 1.4 GM/DL (3.2-5.2); ANION GAP 8 MEQ/L (8-16); BLOOD UREA NITROGEN 40 MG/DL (7-18); CALCIUM LEVEL 7.4 MG/DL (8.8-10.2); CARBON DIOXIDE LEVEL 27 MEQ/L (21-32); CHLORIDE LEVEL 104 MEQ/L (98-107); GLOMERULAR FILTRATION RATE 30.9 (>49); GLUCOSE, FASTING 97 MG/DL (70-100); POTASSIUM SERUM 3.8 MEQ/L (3.5-5.1); SODIUM LEVEL 139 MEQ/L (136-145)
[2017-06-18] MEDS: FUROSEMIDE 100 MG/10 ML VIAL (J1940) IV ×2 (11:20→15:09)
[2017-06-18 11:37] LABS: BEDSIDE GLUCOSE 125 MG/DL (80-115)
[2017-06-18] MEDS: **VANCO AFTER HD** MISC XX (15:28)
[2017-06-18 18:04] LABS: BEDSIDE GLUCOSE 126 MG/DL (80-115)
[2017-06-18] MEDS: FAT EMULSION IV 20% 500 ML IV (19:41)
[2017-06-18] MEDS: AMINO AC/ELECTROLYTE/DEX/CALC 2,000 ML IV (19:41)
[2017-06-19] MEDS: IPRATROPIUM 0.5MG/ALBUTEROL 2.5MG INH SOL UD 3ML (DUONEB)(J7620) NEB ×6 (00:25→20:30)
[2017-06-19] MEDS: metroNIDAZOLE 500 MG in APPROPRIATE DILUENT 1 EA IV (00:33)
[2017-06-19] MEDS: HumaLOG INSULIN (NovoLOG) PER UNIT SC ×4 (00:33→18:00)
[2017-06-19 00:47] LABS: BEDSIDE GLUCOSE 127 MG/DL (80-115)
[2017-06-19] MEDS: CIPROFLOXACIN 400 MG in APPROPRIATE DILUENT 1 EA IV (01:54)
[2017-06-19] MEDS: METOPROLOL 5 MG/5 ML VIAL IV ×4 (03:46→21:46)
[2017-06-19] MEDS: MORPHINE 4 MG/ML 1ML VIAL/SYRINGE (J2270) IV ×3 (04:27→12:46)
[2017-06-19 05:21] LABS: HEMATOCRIT 23.7 % (42.0-52.0); MEAN CORPUSCULAR HGB CONC 33.8 g/dl (32.0-36.5); MEAN CORPUSCULAR VOLUME 91.9 fl (80.0-96.0); PLATELET COUNT, AUTOMATED 277 10^3/uL (150-450); RED BLOOD COUNT 2.58 10^6/uL (4.30-6.10); RED CELL DISTRIBUTION WIDTH 15.7 % (11.5-14.5); WHITE BLOOD COUNT 12.8 10^3/uL (4.0-10.0)
[2017-06-19 05:50] LABS: ALBUMIN 1.4 GM/DL (3.2-5.2); ANION GAP 9 MEQ/L (8-16); BLOOD UREA NITROGEN 62 MG/DL (7-18); CALCIUM LEVEL 7.2 MG/DL (8.8-10.2); CARBON DIOXIDE LEVEL 27 MEQ/L (21-32); CHLORIDE LEVEL 103 MEQ/L (98-107); CREATININE FOR GFR 3.07 MG/DL (0.70-1.30); GLOMERULAR FILTRATION RATE 22.2 (>49); GLUCOSE, FASTING 108 MG/DL (70-100); MAGNESIUM LEVEL 1.7 MG/DL (1.8-2.4); PHOSPHORUS LEVEL 4.7 MG/DL (2.5-4.9); POTASSIUM SERUM 3.8 MEQ/L (3.5-5.1); SODIUM LEVEL 139 MEQ/L (136-145)
[2017-06-19 05:51] LABS: VANCOMYCIN RANDOM 21.9 UG/ML
[2017-06-19] MEDS: SODIUM CHLORIDE 0.9% INJ 10 ML SYR IV ×2 (06:03→18:06)
[2017-06-19] MEDS: HEPARIN SOD (PORCINE) 5000 UNITS/ML VIAL SQ ×2 (08:55→21:45)
[2017-06-19] MEDS: PANTOPRAZOLE 40MG INJ (PROTONIX) (C9113) IV ×2 (08:55→21:47)
[2017-06-19] MEDS: MAG SULF 1GM/100ML (MAG RUN) 1 GM in APPROPRIATE DILUENT 1 EA IV (08:56)
[2017-06-19] MEDS: AMIODARONE HCL 150 MG in APPROPRIATE DILUENT 1 EA IV ×3 (08:56→13:24)
[2017-06-19] MEDS: BLISTEX OINTMENT TOP ×3 (10:00→21:46)
[2017-06-19] MEDS: FUROSEMIDE 100 MG/10 ML VIAL (J1940) IV ×2 (12:45→21:45)
[2017-06-19 12:52] LABS: BEDSIDE GLUCOSE 144 MG/DL (80-115)
[2017-06-19] MEDS: **VANCO AFTER HD** MISC XX (16:02)
[2017-06-19] MEDS: AMINO AC/ELECTROLYTE/DEX/CALC 2,000 ML IV (18:06)
[2017-06-19] MEDS: FAT EMULSION IV 20% 500 ML IV (18:06)
[2017-06-19 18:28] LABS: BEDSIDE GLUCOSE 133 MG/DL (80-115)
[2017-06-19] MEDS: AMIODARONE 200 MG TAB (PACERONE) PO (21:45)
[2017-06-20] MEDS: HumaLOG INSULIN (NovoLOG) PER UNIT SC ×2 (00:23→06:22)
[2017-06-20] MEDS: MORPHINE 4 MG/ML 1ML VIAL/SYRINGE (J2270) IV (00:25)
[2017-06-20 00:26] LABS: BEDSIDE GLUCOSE 152 MG/DL (80-115)
[2017-06-20] MEDS: METOPROLOL 5 MG/5 ML VIAL IV ×6 (01:00→21:55)
[2017-06-20] MEDS: IPRATROPIUM 0.5MG/ALBUTEROL 2.5MG INH SOL UD 3ML (DUONEB)(J7620) NEB ×7 (01:04→23:44)
[2017-06-20] MEDS: FUROSEMIDE 100 MG/10 ML VIAL (J1940) IV ×4 (03:56→21:54)
[2017-06-20 05:49] LABS: BEDSIDE GLUCOSE 146 MG/DL (80-115)
[2017-06-20 05:58] LABS: HEMATOCRIT 24.6 % (42.0-52.0); HEMOGLOBIN 8.2 g/dl (13.5-17.5); MEAN CORPUSCULAR HEMOGLOBIN 31.1 pg (27.0-33.0); MEAN CORPUSCULAR HGB CONC 33.3 g/dl (32.0-36.5); MEAN CORPUSCULAR VOLUME 93.2 fl (80.0-96.0); PLATELET COUNT, AUTOMATED 279 10^3/uL (150-450); RED BLOOD COUNT 2.64 10^6/uL (4.30-6.10); RED CELL DISTRIBUTION WIDTH 15.9 % (11.5-14.5); WHITE BLOOD COUNT 16.6 10^3/uL (4.0-10.0)
[2017-06-20] MEDS: SODIUM CHLORIDE 0.9% INJ 10 ML SYR IV ×2 (06:22→16:22)
[2017-06-20 06:45] LABS: ALBUMIN 1.5 GM/DL (3.2-5.2); ANION GAP 11 MEQ/L (8-16); BLOOD UREA NITROGEN 73 MG/DL (7-18); CALCIUM LEVEL 7.2 MG/DL (8.8-10.2); CARBON DIOXIDE LEVEL 27 MEQ/L (21-32); CHLORIDE LEVEL 101 MEQ/L (98-107); GLOMERULAR FILTRATION RATE 19.1 (>49); GLUCOSE, FASTING 141 MG/DL (70-100); PHOSPHORUS LEVEL 7.6 MG/DL (2.5-4.9); POTASSIUM SERUM 3.4 MEQ/L (3.5-5.1); SODIUM LEVEL 139 MEQ/L (136-145)
[2017-06-20 06:59] LABS: MAGNESIUM LEVEL 2.3 MG/DL (1.8-2.4)
[2017-06-20] MEDS: PANTOPRAZOLE 40MG INJ (PROTONIX) (C9113) IV ×2 (08:56→21:54)
[2017-06-20] MEDS: POTASSIUM CHLORIDE 10% LIQ 20 MEQ/15 ML UDC NG ×2 (08:57→21:56)
[2017-06-20] MEDS: AMIODARONE 200 MG TAB (PACERONE) PO ×2 (08:57→21:56)
[2017-06-20] MEDS: HEPARIN SOD (PORCINE) 5000 UNITS/ML VIAL SQ ×2 (08:57→21:56)
[2017-06-20] MEDS: BLISTEX OINTMENT TOP ×3 (08:57→21:55)
[2017-06-20 09:47] LABS: ABG BASE EXCESS 0.5 (-2.0-2.0); ABG HCO3 26.1 MEQ/L (22.0-26.0); ABG O2 SATURATION 96.4 % (95.0-99.0); ABG PARTIAL PRESSURE CO2 46.7 mmHg (35.0-45.0); ABG PARTIAL PRESSURE O2 87.4 mmHg (75.0-100.0); ABG STANDARD HCO3 24.9 MEQ/L (22.0-26.0); ABG TOTAL CO2 27.5 MEQ/L (23.0-31.0); ABG pH (ARTERIAL) 7.365 UNITS (7.350-7.450)
[2017-06-20 13:03] LABS: BEDSIDE GLUCOSE 179 MG/DL (80-115)
[2017-06-20] MEDS: **VANCO AFTER HD** MISC XX (16:02)
[2017-06-21 00:37] LABS: ABG BASE EXCESS -3.4 (-2.0-2.0); ABG HCO3 26.5 MEQ/L (22.0-26.0); ABG O2 SATURATION 96.1 % (95.0-99.0); ABG PARTIAL PRESSURE O2 102.7 mmHg (75.0-100.0); ABG STANDARD HCO3 21.6 MEQ/L (22.0-26.0)
[2017-06-21 00:40] LABS: ABG pH (ARTERIAL) 7.133 UNITS (7.350-7.450)
[2017-06-21] MEDS: METOPROLOL 5 MG/5 ML VIAL IV ×5 (01:00→18:04)
[2017-06-21 01:01] LABS: LACTIC ACID SEPSIS PROTOCOL 0.9 MMOL/L (0.4-2.0)
[2017-06-21 01:11] LABS: ALBUMIN 1.6 GM/DL (3.2-5.2); ALBUMIN/GLOBULIN RATIO 0.36 (1.00-1.93); ALKALINE PHOSPHATASE 103 U/L (45-117); ALT/SGPT 14 U/L (12-78); ANION GAP 7 MEQ/L (8-16); AST/SGOT 13 U/L (7-37); BILIRUBIN,TOTAL 0.6 MG/DL (0.2-1.0); BLOOD UREA NITROGEN 88 MG/DL (7-18); CALCIUM LEVEL 7.2 MG/DL (8.8-10.2); CARBON DIOXIDE LEVEL 29 MEQ/L (21-32); CHLORIDE LEVEL 102 MEQ/L (98-107); CREATININE FOR GFR 3.99 MG/DL (0.70-1.30); GLOMERULAR FILTRATION RATE 16.4 (>49); GLUCOSE, FASTING 128 MG/DL (70-100); POTASSIUM SERUM 5.1 MEQ/L (3.5-5.1); SODIUM LEVEL 138 MEQ/L (136-145); TOTAL PROTEIN 6.1 GM/DL (6.4-8.2)
[2017-06-21] MEDS ORDERED: NOREPINEPHRINE 4 MG/4 ML AMP As Ordered (02:32)
[2017-06-21] MEDS: NOREPINEPHRINE BITARTRATE 16 MG in D5W 484 ML IV ×2 (02:45→21:46)
[2017-06-21] MEDS: FUROSEMIDE 100 MG/10 ML VIAL (J1940) IV ×5 (03:00→20:36)
[2017-06-21] MEDS: IPRATROPIUM 0.5MG/ALBUTEROL 2.5MG INH SOL UD 3ML (DUONEB)(J7620) NEB ×6 (03:25→23:16)
[2017-06-21 03:27] LABS: ABG BASE EXCESS -2.3 (-2.0-2.0); ABG O2 SATURATION 80.5 % (95.0-99.0); ABG PARTIAL PRESSURE CO2 86.9 mmHg (35.0-45.0); ABG PARTIAL PRESSURE O2 54.5 mmHg (75.0-100.0); ABG STANDARD HCO3 22.3 MEQ/L (22.0-26.0); ABG TOTAL CO2 30.7 MEQ/L (23.0-31.0); ABG pH (ARTERIAL) 7.126 UNITS (7.350-7.450)
[2017-06-21] MEDS ORDERED: HEPARIN SOD (PORCINE) 5000 UNITS/ML VIAL IV (04:30)
[2017-06-21] MEDS: HEPARIN 1,000 UNITS/ML 10ML VIAL (FOR RADIOLOGY& DIALYSIS ONLY) IV ×2 (04:47→16:08)
[2017-06-21 05:49] LABS: HEMATOCRIT 26.6 % (42.0-52.0); HEMOGLOBIN 8.1 g/dl (13.5-17.5); MEAN CORPUSCULAR HEMOGLOBIN 30.1 pg (27.0-33.0); MEAN CORPUSCULAR HGB CONC 30.5 g/dl (32.0-36.5); MEAN CORPUSCULAR VOLUME 98.9 fl (80.0-96.0); PLATELET COUNT, AUTOMATED 320 10^3/uL (150-450); RED BLOOD COUNT 2.69 10^6/uL (4.30-6.10); RED CELL DISTRIBUTION WIDTH 16.4 % (11.5-14.5); WHITE BLOOD COUNT 23.4 10^3/uL (4.0-10.0)
[2017-06-21] MEDS: SODIUM CHLORIDE 0.9% INJ 10 ML SYR IV ×2 (06:00→18:05)
[2017-06-21 06:06] LABS: ABG BASE EXCESS -3.6 (-2.0-2.0); ABG HCO3 29.9 MEQ/L (22.0-26.0); ABG O2 SATURATION 90.9 % (95.0-99.0); ABG PARTIAL PRESSURE O2 80.7 mmHg (75.0-100.0); ABG STANDARD HCO3 21.3 MEQ/L (22.0-26.0); ABG pH (ARTERIAL) 6.964 UNITS (7.350-7.450)
[2017-06-21 06:07] LABS: ABG PARTIAL PRESSURE CO2 134.7 mmHg (35.0-45.0)
[2017-06-21 06:13] LABS: ALBUMIN 1.5 GM/DL (3.2-5.2); ANION GAP 7 MEQ/L (8-16); BLOOD UREA NITROGEN 88 MG/DL (7-18); CALCIUM LEVEL 7.5 MG/DL (8.8-10.2); CARBON DIOXIDE LEVEL 30 MEQ/L (21-32); CHLORIDE LEVEL 102 MEQ/L (98-107); CREATININE FOR GFR 4.12 MG/DL (0.70-1.30); GLOMERULAR FILTRATION RATE 15.8 (>49); GLUCOSE, FASTING 146 MG/DL (70-100); SODIUM LEVEL 139 MEQ/L (136-145)
[2017-06-21] MEDS ORDERED: MIDAZOLAM INJ 2 MG/2 ML VIAL (J2250) As Ordered ×2 (06:20)
[2017-06-21 06:35] LABS: PHOSPHORUS LEVEL 9.2 MG/DL (2.5-4.9)
[2017-06-21] MEDS ORDERED: LIDOCAINE 1% MDV 20ML VIAL As Ordered ×2 (06:35→06:44)
[2017-06-21] MEDS: MIDAZOLAM INJ 2 MG/2 ML VIAL (J2250) IV (07:28)
[2017-06-21] MEDS: LIDOCAINE 1% MDV 20ML VIAL SC (07:29)
[2017-06-21 08:25] LABS: ABG BASE EXCESS -0.9 (-2.0-2.0); ABG O2 SATURATION 96.3 % (95.0-99.0); ABG PARTIAL PRESSURE O2 73.6 mmHg (75.0-100.0); ABG STANDARD HCO3 23.7 MEQ/L (22.0-26.0); ABG TOTAL CO2 24.1 MEQ/L (23.0-31.0); ABG pH (ARTERIAL) 7.436 UNITS (7.350-7.450)
[2017-06-21] MEDS: POTASSIUM CHLORIDE 10% LIQ 20 MEQ/15 ML UDC NG (08:56)
[2017-06-21] MEDS: AMIODARONE 200 MG TAB (PACERONE) PO (09:00)
[2017-06-21] MEDS: BLISTEX OINTMENT TOP ×3 (10:02→20:37)
[2017-06-21] MEDS: HEPARIN SOD (PORCINE) 5000 UNITS/ML VIAL SQ ×2 (10:02→20:35)
[2017-06-21] MEDS: PANTOPRAZOLE 40MG INJ (PROTONIX) (C9113) IV ×2 (10:02→20:35)
[2017-06-21 10:40] LABS: ABG HCO3 24.3 MEQ/L (22.0-26.0); ABG O2 SATURATION 92.2 % (95.0-99.0); ABG PARTIAL PRESSURE CO2 33.4 mmHg (35.0-45.0); ABG PARTIAL PRESSURE O2 57.8 mmHg (75.0-100.0); ABG STANDARD HCO3 25.3 MEQ/L (22.0-26.0); ABG TOTAL CO2 25.3 MEQ/L (23.0-31.0)
[2017-06-21 12:15] LABS: BEDSIDE GLUCOSE 130 MG/DL (80-115)
[2017-06-21] MEDS: AMIODARONE HCL 150 MG in APPROPRIATE DILUENT 1 EA IV ×2 (15:07→20:52)
[2017-06-21] MEDS: HEPARIN 1,000 UNITS/ML 10ML VIAL (FOR RADIOLOGY& DIALYSIS ONLY) XX (16:08)
[2017-06-21] MEDS: MORPHINE 4 MG/ML 1ML VIAL/SYRINGE (J2270) IV (16:08)
[2017-06-21] MEDS: DIGOXIN INJ 0.5 MG/2 ML AMP (J1160) IV ×2 (16:21→20:37)
[2017-06-21 19:26] LABS: BEDSIDE GLUCOSE 122 MG/DL (80-115)
[2017-06-22 00:13] LABS: BEDSIDE GLUCOSE 140 MG/DL (80-115)
[2017-06-22] MEDS: MORPHINE 4 MG/ML 1ML VIAL/SYRINGE (J2270) IV ×2 (02:52→23:58)
[2017-06-22] MEDS: FUROSEMIDE 100 MG/10 ML VIAL (J1940) IV ×4 (02:53→20:35)
[2017-06-22] MEDS: AMIODARONE HCL 150 MG in APPROPRIATE DILUENT 1 EA IV ×4 (02:53→20:36)
[2017-06-22] MEDS: IPRATROPIUM 0.5MG/ALBUTEROL 2.5MG INH SOL UD 3ML (DUONEB)(J7620) NEB ×6 (04:06→23:13)
[2017-06-22 05:40] LABS: ABG HCO3 29.4 MEQ/L (22.0-26.0); ABG O2 SATURATION 99.4 % (95.0-99.0); ABG PARTIAL PRESSURE CO2 37.4 mmHg (35.0-45.0); ABG PARTIAL PRESSURE O2 134.4 mmHg (75.0-100.0); ABG STANDARD HCO3 29.9 MEQ/L (22.0-26.0); ABG TOTAL CO2 30.5 MEQ/L (23.0-31.0); ABG pH (ARTERIAL) 7.513 UNITS (7.350-7.450)
[2017-06-22] MEDS: SODIUM CHLORIDE 0.9% INJ 10 ML SYR IV ×2 (06:14→18:43)
[2017-06-22 06:18] LABS: HEMATOCRIT 20.5 % (42.0-52.0); MEAN CORPUSCULAR HEMOGLOBIN 30.5 pg (27.0-33.0); MEAN CORPUSCULAR HGB CONC 32.7 g/dl (32.0-36.5); MEAN CORPUSCULAR VOLUME 93.2 fl (80.0-96.0); PLATELET COUNT, AUTOMATED 279 10^3/uL (150-450); RED CELL DISTRIBUTION WIDTH 15.5 % (11.5-14.5); WHITE BLOOD COUNT 26.4 10^3/uL (4.0-10.0)
[2017-06-22 06:25] LABS: HEMOGLOBIN 6.7 g/dl (13.5-17.5)
[2017-06-22 06:51] LABS: ALBUMIN 1.4 GM/DL (3.2-5.2); ANION GAP 7 MEQ/L (8-16); BLOOD UREA NITROGEN 44 MG/DL (7-18); CARBON DIOXIDE LEVEL 29 MEQ/L (21-32); CHLORIDE LEVEL 102 MEQ/L (98-107); CREATININE FOR GFR 2.72 MG/DL (0.70-1.30); GLOMERULAR FILTRATION RATE 25.5 (>49); GLUCOSE, FASTING 117 MG/DL (70-100); POTASSIUM SERUM 3.6 MEQ/L (3.5-5.1); SODIUM LEVEL 138 MEQ/L (136-145)
[2017-06-22] MEDS: PANTOPRAZOLE 40MG INJ (PROTONIX) (C9113) IV ×2 (08:54→20:35)
[2017-06-22] MEDS: HEPARIN SOD (PORCINE) 5000 UNITS/ML VIAL SQ ×2 (08:54→20:35)
[2017-06-22] MEDS: BLISTEX OINTMENT TOP ×3 (08:55→20:36)
[2017-06-22] MEDS: OXAZEPAM 10 MG CAP PO ×3 (11:28→20:36)
[2017-06-22 13:12] LABS: BEDSIDE GLUCOSE 109 MG/DL (80-115)
[2017-06-22 13:34] LABS: HEMATOCRIT 19.6 % (42.0-52.0)
[2017-06-22 13:40] LABS: HEMOGLOBIN 6.5 g/dl (13.5-17.5)
[2017-06-22] MEDS: ACETAMINOPHEN 325 MG/10.15 ML UDC GT (15:48)
[2017-06-22 17:01] LABS: IMMEDIATE SPIN CROSSMATCH 1 2
[2017-06-22 19:24] LABS: BEDSIDE GLUCOSE 122 MG/DL (80-115)
[2017-06-23 02:42] LABS: BEDSIDE GLUCOSE 124 MG/DL (80-115)
[2017-06-23] MEDS: AMIODARONE HCL 150 MG in APPROPRIATE DILUENT 1 EA IV ×4 (03:15→20:28)
[2017-06-23] MEDS: FUROSEMIDE 100 MG/10 ML VIAL (J1940) IV ×2 (03:15→08:40)
[2017-06-23] MEDS: IPRATROPIUM 0.5MG/ALBUTEROL 2.5MG INH SOL UD 3ML (DUONEB)(J7620) NEB ×5 (03:35→19:46)
[2017-06-23] MEDS: MORPHINE 4 MG/ML 1ML VIAL/SYRINGE (J2270) IV (04:10)
[2017-06-23 05:43] LABS: HEMATOCRIT 23.2 % (42.0-52.0); HEMOGLOBIN 7.8 g/dl (13.5-17.5); MEAN CORPUSCULAR HEMOGLOBIN 30.5 pg (27.0-33.0); MEAN CORPUSCULAR HGB CONC 33.6 g/dl (32.0-36.5); MEAN CORPUSCULAR VOLUME 90.6 fl (80.0-96.0); PLATELET COUNT, AUTOMATED 250 10^3/uL (150-450); RED BLOOD COUNT 2.56 10^6/uL (4.30-6.10); RED CELL DISTRIBUTION WIDTH 15.7 % (11.5-14.5); WHITE BLOOD COUNT 19.1 10^3/uL (4.0-10.0)
[2017-06-23 05:45] LABS: ADD MANUAL DIFFER YES; DIFF SLIDE NUMBER 63; POSITIVE MORPH POS FLAG
[2017-06-23] MEDS: SODIUM CHLORIDE 0.9% INJ 10 ML SYR IV ×2 (05:51→17:13)
[2017-06-23 06:02] LABS: ALBUMIN 1.4 GM/DL (3.2-5.2); ANION GAP 9 MEQ/L (8-16); BLOOD UREA NITROGEN 54 MG/DL (7-18); CALCIUM LEVEL 7.1 MG/DL (8.8-10.2); CARBON DIOXIDE LEVEL 29 MEQ/L (21-32); CHLORIDE LEVEL 102 MEQ/L (98-107); CREATININE FOR GFR 3.42 MG/DL (0.70-1.30); GLOMERULAR FILTRATION RATE 19.6 (>49); GLUCOSE, FASTING 123 MG/DL (70-100); PHOSPHORUS LEVEL 6.2 MG/DL (2.5-4.9); POTASSIUM SERUM 3.1 MEQ/L (3.5-5.1); SODIUM LEVEL 140 MEQ/L (136-145)
[2017-06-23 06:05] LABS: ABG BASE EXCESS 3.5 (-2.0-2.0); ABG HCO3 26.6 MEQ/L (22.0-26.0); ABG O2 SATURATION 97.9 % (95.0-99.0); ABG PARTIAL PRESSURE CO2 34.2 mmHg (35.0-45.0); ABG PARTIAL PRESSURE O2 98.4 mmHg (75.0-100.0); ABG STANDARD HCO3 27.6 MEQ/L (22.0-26.0); ABG TOTAL CO2 27.7 MEQ/L (23.0-31.0); ABG pH (ARTERIAL) 7.509 UNITS (7.350-7.450)
[2017-06-23 06:11] LABS: BANDS 3 % (< 11); EOSINOPHILS 1 % (0-5); LYMPHOCYTES 3 % (16-52); METAMYELOCYTES 1 % (0-0); MONOCYTES 4 % (0-8); NEUTROPHILS 88 % (35-75); PLATELET ESTIMATE NORMAL (NORMAL)
[2017-06-23] MEDS: OXAZEPAM 10 MG CAP PO ×3 (08:40→20:28)
[2017-06-23] MEDS: PANTOPRAZOLE 40MG INJ (PROTONIX) (C9113) IV ×2 (08:40→20:27)
[2017-06-23] MEDS: HEPARIN SOD (PORCINE) 5000 UNITS/ML VIAL SQ ×2 (08:41→20:28)
[2017-06-23] MEDS: BLISTEX OINTMENT TOP ×3 (08:41→20:27)
[2017-06-23] MEDS: POTASSIUM CHLORIDE 10% LIQ 20 MEQ/15 ML UDC NG (11:03)
[2017-06-23] MEDS: KCL 20MEQ IN 100ML SWI (KRUN) 20 MEQ in APPROPRIATE DILUENT 1 EA IV (11:03)
[2017-06-23 12:13] LABS: HEMATOCRIT 23.8 % (42.0-52.0); HEMOGLOBIN 8.1 g/dl (13.5-17.5)
[2017-06-23] MEDS: CEFTAROLINE FOSAMIL 300 MG in D5W 50 ML IV ×2 (13:36→23:27)
[2017-06-23 14:29] LABS: BEDSIDE GLUCOSE 127 MG/DL (80-115)
[2017-06-23 23:31] LABS: BEDSIDE GLUCOSE 123 MG/DL (80-115)
[2017-06-24] MEDS: IPRATROPIUM 0.5MG/ALBUTEROL 2.5MG INH SOL UD 3ML (DUONEB)(J7620) NEB ×6 (00:08→20:42)
[2017-06-24] MEDS: AMIODARONE HCL 150 MG in APPROPRIATE DILUENT 1 EA IV (02:44)
[2017-06-24 03:32] LABS: BEDSIDE GLUCOSE 130 MG/DL (80-115)
[2017-06-24 04:17] LABS: HEMATOCRIT 24.2 % (42.0-52.0); HEMOGLOBIN 7.9 g/dl (13.5-17.5); MEAN CORPUSCULAR HEMOGLOBIN 30.2 pg (27.0-33.0); MEAN CORPUSCULAR HGB CONC 32.6 g/dl (32.0-36.5); MEAN CORPUSCULAR VOLUME 92.4 fl (80.0-96.0); PLATELET COUNT, AUTOMATED 268 10^3/uL (150-450); RED BLOOD COUNT 2.62 10^6/uL (4.30-6.10); RED CELL DISTRIBUTION WIDTH 15.9 % (11.5-14.5); WHITE BLOOD COUNT 18.1 10^3/uL (4.0-10.0)
[2017-06-24 04:31] LABS: ALBUMIN 1.4 GM/DL (3.2-5.2); ANION GAP 10 MEQ/L (8-16); BLOOD UREA NITROGEN 64 MG/DL (7-18); CALCIUM LEVEL 7.5 MG/DL (8.8-10.2); CARBON DIOXIDE LEVEL 27 MEQ/L (21-32); CHLORIDE LEVEL 104 MEQ/L (98-107); CREATININE FOR GFR 3.88 MG/DL (0.70-1.30); GLOMERULAR FILTRATION RATE 16.9 (>49); GLUCOSE, FASTING 117 MG/DL (70-100); PHOSPHORUS LEVEL 6.3 MG/DL (2.5-4.9); POTASSIUM SERUM 3.1 MEQ/L (3.5-5.1); SODIUM LEVEL 141 MEQ/L (136-145)
[2017-06-24] MEDS: SODIUM CHLORIDE 0.9% INJ 10 ML SYR IV ×2 (05:05→18:00)
[2017-06-24 05:51] LABS: ABG BASE EXCESS 4.9 (-2.0-2.0); ABG HCO3 28.9 MEQ/L (22.0-26.0); ABG O2 SATURATION 93.9 % (95.0-99.0); ABG PARTIAL PRESSURE CO2 40.3 mmHg (35.0-45.0); ABG PARTIAL PRESSURE O2 68.9 mmHg (75.0-100.0); ABG STANDARD HCO3 28.9 MEQ/L (22.0-26.0); ABG TOTAL CO2 30.2 MEQ/L (23.0-31.0); ABG pH (ARTERIAL) 7.474 UNITS (7.350-7.450)
[2017-06-24] MEDS ORDERED: PILL CRUSHER/CUTTER 1 EACH XX (08:00)
[2017-06-24] MEDS: PANTOPRAZOLE 40MG INJ (PROTONIX) (C9113) IV ×2 (09:10→20:18)
[2017-06-24] MEDS: OXAZEPAM 10 MG CAP PO ×3 (09:10→20:19)
[2017-06-24] MEDS: AMIODARONE 200 MG TAB (PACERONE) PO ×2 (09:10→20:18)
[2017-06-24] MEDS: BLISTEX OINTMENT TOP ×3 (09:11→20:20)
[2017-06-24] MEDS: HEPARIN SOD (PORCINE) 5000 UNITS/ML VIAL SQ (09:11)
[2017-06-24] MEDS: MORPHINE 4 MG/ML 1ML VIAL/SYRINGE (J2270) IV ×4 (10:30→20:19)
[2017-06-24] MEDS: CEFTAROLINE FOSAMIL 300 MG in D5W 50 ML IV (11:38)
[2017-06-24 12:13] LABS: BEDSIDE GLUCOSE 108 MG/DL (80-115)
[2017-06-24] MEDS: POTASSIUM CHLORIDE 10% LIQ 20 MEQ/15 ML UDC PO (12:42)
[2017-06-24] MEDS: FUROSEMIDE 100 MG/10 ML VIAL (J1940) IV ×2 (12:45→21:46)
[2017-06-24] MEDS: HEPARIN 1,000 UNITS/ML 10ML VIAL (FOR RADIOLOGY& DIALYSIS ONLY) XX (12:45)
[2017-06-24] MEDS: HEPARIN 1,000 UNITS/ML 10ML VIAL (FOR RADIOLOGY& DIALYSIS ONLY) IV (12:45)
[2017-06-24] MEDS: KCL 20MEQ IN 100ML SWI (KRUN) 20 MEQ in APPROPRIATE DILUENT 1 EA IV ×3 (13:22→21:46)
[2017-06-24 13:36] LABS: MAGNESIUM LEVEL 2.2 MG/DL (1.8-2.4)
[2017-06-24 15:30] LABS: IMMEDIATE SPIN CROSSMATCH 1 2
[2017-06-25] MEDS: CEFTAROLINE FOSAMIL 300 MG in D5W 50 ML IV ×2 (00:01→16:51)
[2017-06-25] MEDS: IPRATROPIUM 0.5MG/ALBUTEROL 2.5MG INH SOL UD 3ML (DUONEB)(J7620) NEB ×7 (00:37→23:52)
[2017-06-25] MEDS: MORPHINE 4 MG/ML 1ML VIAL/SYRINGE (J2270) IV (02:24)
[2017-06-25 04:49] LABS: HEMATOCRIT 30.7 % (42.0-52.0); MEAN CORPUSCULAR HEMOGLOBIN 30.5 pg (27.0-33.0); MEAN CORPUSCULAR HGB CONC 33.2 g/dl (32.0-36.5); MEAN CORPUSCULAR VOLUME 91.9 fl (80.0-96.0); PLATELET COUNT, AUTOMATED 321 10^3/uL (150-450); RED BLOOD COUNT 3.34 10^6/uL (4.30-6.10); RED CELL DISTRIBUTION WIDTH 15.8 % (11.5-14.5)
[2017-06-25 04:54] LABS: HEMOGLOBIN 10.2 g/dl (13.5-17.5)
[2017-06-25 05:04] LABS: ALBUMIN 1.4 GM/DL (3.2-5.2); ANION GAP 10 MEQ/L (8-16); BLOOD UREA NITROGEN 65 MG/DL (7-18); CALCIUM LEVEL 7.9 MG/DL (8.8-10.2); CARBON DIOXIDE LEVEL 27 MEQ/L (21-32); CHLORIDE LEVEL 108 MEQ/L (98-107); CREATININE FOR GFR 4.16 MG/DL (0.70-1.30); GLOMERULAR FILTRATION RATE 15.6 (>49); GLUCOSE, FASTING 103 MG/DL (70-100); PHOSPHORUS LEVEL 6.6 MG/DL (2.5-4.9); SODIUM LEVEL 145 MEQ/L (136-145)
[2017-06-25] MEDS: SODIUM CHLORIDE 0.9% INJ 10 ML SYR IV ×2 (05:08→18:17)
[2017-06-25 05:20] LABS: ABG BASE EXCESS 1.6 (-2.0-2.0); ABG O2 SATURATION 91.4 % (95.0-99.0); ABG PARTIAL PRESSURE CO2 34.9 mmHg (35.0-45.0); ABG PARTIAL PRESSURE O2 60.2 mmHg (75.0-100.0); ABG STANDARD HCO3 25.8 MEQ/L (22.0-26.0); ABG TOTAL CO2 26.1 MEQ/L (23.0-31.0); ABG pH (ARTERIAL) 7.473 UNITS (7.350-7.450)
[2017-06-25] MEDS: PANTOPRAZOLE 40MG INJ (PROTONIX) (C9113) IV ×2 (08:18→21:28)
[2017-06-25] MEDS: AMIODARONE 200 MG TAB (PACERONE) PO ×2 (08:18→21:29)
[2017-06-25] MEDS: BLISTEX OINTMENT TOP ×3 (08:18→21:28)
[2017-06-25] MEDS: OXAZEPAM 10 MG CAP PO ×3 (08:18→21:28)
[2017-06-25] MEDS ORDERED: LIDOCAINE 1% MDV 20ML VIAL As Ordered (09:20)
[2017-06-25] MEDS ORDERED: MIDAZOLAM INJ 2 MG/2 ML VIAL (J2250) As Ordered ×2 (09:20)
[2017-06-25] MEDS: MIDAZOLAM INJ 2 MG/2 ML VIAL (J2250) IV (09:30)
[2017-06-25] MEDS: LIDOCAINE 1% MDV 20ML VIAL XX (09:30)
[2017-06-25] MEDS: FORMOTEROL FUMARATE 20 MCG/2 ML INHALATION SOLUTION (PERFOROMIST) INH ×2 (11:31→21:08)
[2017-06-25] MEDS: BUDESONIDE 0.5 MG/2 ML INHALATION SUSPENSION INH ×2 (11:31→21:08)
[2017-06-25] MEDS: HEPARIN 1,000 UNITS/ML 10ML VIAL (FOR RADIOLOGY& DIALYSIS ONLY) XX (11:45)
[2017-06-25] MEDS: METOPROLOL 5 MG/5 ML VIAL IV (18:17)
[2017-06-25] MEDS: METOPROLOL TART 25 MG TABLET PO ×2 (18:18→23:16)
[2017-06-25] MEDS: HEPARIN SOD (PORCINE) 5000 UNITS/ML VIAL SQ (21:29)
[2017-06-26] MEDS: MORPHINE 4 MG/ML 1ML VIAL/SYRINGE (J2270) IV (00:06)
[2017-06-26] MEDS: CEFTAROLINE FOSAMIL 300 MG in D5W 50 ML IV ×3 (00:14→23:58)
[2017-06-26] MEDS: IPRATROPIUM 0.5MG/ALBUTEROL 2.5MG INH SOL UD 3ML (DUONEB)(J7620) NEB ×5 (03:45→20:00)
[2017-06-26] MEDS: SODIUM CHLORIDE 0.9% INJ 10 ML SYR IV ×2 (05:07→17:31)
[2017-06-26 05:59] LABS: ABG BASE EXCESS 2.2 (-2.0-2.0); ABG HCO3 24.5 MEQ/L (22.0-26.0); ABG O2 SATURATION 98.9 % (95.0-99.0); ABG PARTIAL PRESSURE CO2 30.6 mmHg (35.0-45.0); ABG PARTIAL PRESSURE O2 143.3 mmHg (75.0-100.0); ABG STANDARD HCO3 26.4 MEQ/L (22.0-26.0); ABG TOTAL CO2 25.4 MEQ/L (23.0-31.0); ABG pH (ARTERIAL) 7.521 UNITS (7.350-7.450)
[2017-06-26] MEDS: METOPROLOL TART 25 MG TABLET PO ×4 (06:00→23:58)
[2017-06-26] MEDS: BUDESONIDE 0.5 MG/2 ML INHALATION SUSPENSION INH ×2 (07:09→20:46)
[2017-06-26] MEDS: FORMOTEROL FUMARATE 20 MCG/2 ML INHALATION SOLUTION (PERFOROMIST) INH ×2 (07:09→20:46)
[2017-06-26] MEDS: PANTOPRAZOLE 40MG INJ (PROTONIX) (C9113) IV ×2 (09:33→20:44)
[2017-06-26] MEDS: AMIODARONE 200 MG TAB (PACERONE) PO ×2 (09:33→20:43)
[2017-06-26] MEDS: OXAZEPAM 10 MG CAP PO (09:34)
[2017-06-26] MEDS: HEPARIN SOD (PORCINE) 5000 UNITS/ML VIAL SQ ×2 (09:34→20:44)
[2017-06-26] MEDS: BLISTEX OINTMENT TOP ×3 (09:35→20:44)
[2017-06-26 10:35] LABS: PTH INTACT 79.8 PG/ML (18.5-88.0)
[2017-06-26 10:38] LABS: HEMOGLOBIN 10.4 g/dl (13.5-17.5); MEAN CORPUSCULAR HEMOGLOBIN 30.2 pg (27.0-33.0); MEAN CORPUSCULAR HGB CONC 32.5 g/dl (32.0-36.5); PLATELET COUNT, AUTOMATED 373 10^3/uL (150-450); RED BLOOD COUNT 3.44 10^6/uL (4.30-6.10); RED CELL DISTRIBUTION WIDTH 15.8 % (11.5-14.5); WHITE BLOOD COUNT 18.7 10^3/uL (4.0-10.0)
[2017-06-26 11:10] LABS: ALBUMIN 1.6 GM/DL (3.2-5.2); ALBUMIN/GLOBULIN RATIO 0.32 (1.00-1.93); ALKALINE PHOSPHATASE 97 U/L (45-117); ALT/SGPT 11 U/L (12-78); ANION GAP 8 MEQ/L (8-16); AST/SGOT 15 U/L (7-37); BILIRUBIN,TOTAL 1.7 MG/DL (0.2-1.0); BLOOD UREA NITROGEN 41 MG/DL (7-18); CALCIUM LEVEL 7.9 MG/DL (8.8-10.2); CARBON DIOXIDE LEVEL 28 MEQ/L (21-32); CHLORIDE LEVEL 105 MEQ/L (98-107); CREATININE FOR GFR 2.54 MG/DL (0.70-1.30); GLOMERULAR FILTRATION RATE 27.6 (>49); GLUCOSE, FASTING 106 MG/DL (70-100); POTASSIUM SERUM 3.8 MEQ/L (3.5-5.1); SODIUM LEVEL 141 MEQ/L (136-145); TOTAL PROTEIN 6.6 GM/DL (6.4-8.2)
[2017-06-26] MEDS: ACETAMINOPHEN 325 MG/10.15 ML UDC GT (21:19)
[2017-06-27] MEDS: IPRATROPIUM 0.5MG/ALBUTEROL 2.5MG INH SOL UD 3ML (DUONEB)(J7620) NEB ×7 (00:38→23:17)
[2017-06-27 05:48] LABS: HEMATOCRIT 29.7 % (42.0-52.0); HEMOGLOBIN 9.5 g/dl (13.5-17.5); MEAN CORPUSCULAR HEMOGLOBIN 30.2 pg (27.0-33.0); MEAN CORPUSCULAR VOLUME 94.3 fl (80.0-96.0); PLATELET COUNT, AUTOMATED 398 10^3/uL (150-450); RED BLOOD COUNT 3.15 10^6/uL (4.30-6.10); RED CELL DISTRIBUTION WIDTH 15.7 % (11.5-14.5); WHITE BLOOD COUNT 16.5 10^3/uL (4.0-10.0)
[2017-06-27 05:57] LABS: ABG BASE EXCESS 3.8 (-2.0-2.0); ABG HCO3 27.3 MEQ/L (22.0-26.0); ABG O2 SATURATION 96.8 % (95.0-99.0); ABG PARTIAL PRESSURE CO2 36.8 mmHg (35.0-45.0); ABG PARTIAL PRESSURE O2 87.3 mmHg (75.0-100.0); ABG STANDARD HCO3 27.9 MEQ/L (22.0-26.0); ABG TOTAL CO2 28.4 MEQ/L (23.0-31.0); ABG pH (ARTERIAL) 7.488 UNITS (7.350-7.450)
[2017-06-27] MEDS: METOPROLOL TART 25 MG TABLET PO ×3 (06:00→18:12)
[2017-06-27 06:14] LABS: ANION GAP 8 MEQ/L (8-16); BLOOD UREA NITROGEN 50 MG/DL (7-18); CALCIUM LEVEL 7.8 MG/DL (8.8-10.2); CARBON DIOXIDE LEVEL 29 MEQ/L (21-32); CHLORIDE LEVEL 108 MEQ/L (98-107); CREATININE FOR GFR 2.96 MG/DL (0.70-1.30); GLOMERULAR FILTRATION RATE 23.1 (>49); GLUCOSE, FASTING 123 MG/DL (70-100); POTASSIUM SERUM 3.8 MEQ/L (3.5-5.1); SODIUM LEVEL 145 MEQ/L (136-145)
[2017-06-27] MEDS: SODIUM CHLORIDE 0.9% INJ 10 ML SYR IV ×2 (06:25→18:11)
[2017-06-27] MEDS: BUDESONIDE 0.5 MG/2 ML INHALATION SUSPENSION INH ×2 (08:14→19:11)
[2017-06-27] MEDS: FORMOTEROL FUMARATE 20 MCG/2 ML INHALATION SOLUTION (PERFOROMIST) INH ×2 (08:15→19:11)
[2017-06-27] MEDS: AMIODARONE 200 MG TAB (PACERONE) PO ×2 (08:21→20:32)
[2017-06-27] MEDS: HEPARIN SOD (PORCINE) 5000 UNITS/ML VIAL SQ ×2 (08:21→20:32)
[2017-06-27] MEDS: ACETAMINOPHEN 325 MG/10.15 ML UDC GT (08:22)
[2017-06-27] MEDS: PANTOPRAZOLE 40MG INJ (PROTONIX) (C9113) IV ×2 (08:22→20:32)
[2017-06-27] MEDS: BLISTEX OINTMENT TOP ×3 (08:22→20:32)
[2017-06-27] MEDS ORDERED: MIDAZOLAM INJ 2 MG/2 ML VIAL (J2250) As Ordered ×2 (08:49)
[2017-06-27] MEDS ORDERED: LIDOCAINE 1% MDV 20ML VIAL As Ordered (08:50)
[2017-06-27] MEDS: MIDAZOLAM INJ 2 MG/2 ML VIAL (J2250) IV (09:12)
[2017-06-27] MEDS: LIDOCAINE 1% MDV 20ML VIAL XX (09:15)
[2017-06-27] MEDS: POTASSIUM CHLORIDE 10% LIQ 20 MEQ/15 ML UDC PO (11:38)
[2017-06-27] MEDS: FUROSEMIDE 100 MG/10 ML VIAL (J1940) IV (11:38)
[2017-06-27] MEDS: CEFTAROLINE FOSAMIL 300 MG in D5W 50 ML IV (11:38)
[2017-06-27] MEDS: KCL 20MEQ IN 100ML SWI (KRUN) 20 MEQ in APPROPRIATE DILUENT 1 EA IV ×2 (13:42→14:57)
[2017-06-28] MEDS: IPRATROPIUM 0.5MG/ALBUTEROL 2.5MG INH SOL UD 3ML (DUONEB)(J7620) NEB ×6 (03:46→23:19)
[2017-06-28] MEDS: METOPROLOL TART 25 MG TABLET PO ×4 (06:00→08:35)
[2017-06-28] MEDS: SODIUM CHLORIDE 0.9% INJ 10 ML SYR IV ×2 (06:05→17:05)
[2017-06-28 06:58] LABS: ANION GAP 6 MEQ/L (8-16); BLOOD UREA NITROGEN 56 MG/DL (7-18); CARBON DIOXIDE LEVEL 28 MEQ/L (21-32); CHLORIDE LEVEL 113 MEQ/L (98-107); CREATININE FOR GFR 3.22 MG/DL (0.70-1.30); GLUCOSE, FASTING 103 MG/DL (70-100); MAGNESIUM LEVEL 2.1 MG/DL (1.8-2.4); SODIUM LEVEL 147 MEQ/L (136-145)
[2017-06-28] MEDS: BUDESONIDE 0.5 MG/2 ML INHALATION SUSPENSION INH ×2 (07:53→19:44)
[2017-06-28] MEDS: FORMOTEROL FUMARATE 20 MCG/2 ML INHALATION SOLUTION (PERFOROMIST) INH ×2 (07:53→19:44)
[2017-06-28] MEDS: PANTOPRAZOLE 40MG INJ (PROTONIX) (C9113) IV ×2 (08:23→20:55)
[2017-06-28] MEDS: HEPARIN SOD (PORCINE) 5000 UNITS/ML VIAL SQ ×2 (08:23→20:56)
[2017-06-28] MEDS: AMIODARONE 200 MG TAB (PACERONE) PO ×2 (08:23→20:56)
[2017-06-28] MEDS: BLISTEX OINTMENT TOP ×3 (08:24→20:58)
[2017-06-28] MEDS ORDERED: METOPROLOL TART 25 MG TABLET As Ordered (08:31)
[2017-06-28] MEDS: CEFTAROLINE FOSAMIL 300 MG in D5W 50 ML IV ×2 (12:14)
[2017-06-28] MEDS: LOMOTIL 2.5MG/0.025MG TABLET PO ×3 (12:31→20:57)
[2017-06-28] MEDS: KCL 20MEQ IN D5W 1000ML 1,000 ML IV (14:40)
[2017-06-28] MEDS: METAMUCIL (PSYLLIUM) PACKET PO ×2 (14:40→20:55)
[2017-06-28 19:03] LABS: ANION GAP 8 MEQ/L (8-16); BLOOD UREA NITROGEN 56 MG/DL (7-18); CALCIUM LEVEL 8.2 MG/DL (8.8-10.2); CARBON DIOXIDE LEVEL 25 MEQ/L (21-32); CHLORIDE LEVEL 117 MEQ/L (98-107); CREATININE FOR GFR 3.31 MG/DL (0.70-1.30); GLOMERULAR FILTRATION RATE 20.3 (>49); GLUCOSE, FASTING 118 MG/DL (70-100); POTASSIUM SERUM 4.2 MEQ/L (3.5-5.1); SODIUM LEVEL 150 MEQ/L (136-145)
[2017-06-28] MEDS: METOPROLOL TART 50 MG TAB PO (20:57)
[2017-06-29] MEDS: CEFTAROLINE FOSAMIL 300 MG in D5W 50 ML IV ×3 (00:39→23:01)
[2017-06-29] MEDS: MORPHINE 4 MG/ML 1ML VIAL/SYRINGE (J2270) IV (00:40)
[2017-06-29] MEDS: KCL 20MEQ IN D5W 1000ML 1,000 ML IV ×3 (01:36→15:31)
[2017-06-29] MEDS: IPRATROPIUM 0.5MG/ALBUTEROL 2.5MG INH SOL UD 3ML (DUONEB)(J7620) NEB ×6 (04:30→23:38)
[2017-06-29 04:36] LABS: HEMATOCRIT 28.5 % (42.0-52.0); MEAN CORPUSCULAR HEMOGLOBIN 30.6 pg (27.0-33.0); MEAN CORPUSCULAR HGB CONC 31.6 g/dl (32.0-36.5); MEAN CORPUSCULAR VOLUME 96.9 fl (80.0-96.0); PLATELET COUNT, AUTOMATED 456 10^3/uL (150-450); RED BLOOD COUNT 2.94 10^6/uL (4.30-6.10); RED CELL DISTRIBUTION WIDTH 15.9 % (11.5-14.5); WHITE BLOOD COUNT 15.4 10^3/uL (4.0-10.0)
[2017-06-29 05:00] LABS: ANION GAP 8 MEQ/L (8-16); BLOOD UREA NITROGEN 52 MG/DL (7-18); CALCIUM LEVEL 7.7 MG/DL (8.8-10.2); CARBON DIOXIDE LEVEL 25 MEQ/L (21-32); CHLORIDE LEVEL 114 MEQ/L (98-107); CREATININE FOR GFR 3.11 MG/DL (0.70-1.30); GLOMERULAR FILTRATION RATE 21.8 (>49); GLUCOSE, FASTING 114 MG/DL (70-100); MAGNESIUM LEVEL 2.1 MG/DL (1.8-2.4); POTASSIUM SERUM 4.1 MEQ/L (3.5-5.1); SODIUM LEVEL 147 MEQ/L (136-145)
[2017-06-29] MEDS: SODIUM CHLORIDE 0.9% INJ 10 ML SYR IV ×2 (06:21→17:43)
[2017-06-29] MEDS: BLISTEX OINTMENT TOP ×3 (07:52→22:40)
[2017-06-29] MEDS: AMIODARONE 200 MG TAB (PACERONE) PO ×2 (07:52→22:40)
[2017-06-29] MEDS: PANTOPRAZOLE 40MG INJ (PROTONIX) (C9113) IV ×2 (07:52→22:38)
[2017-06-29] MEDS: LOMOTIL 2.5MG/0.025MG TABLET PO ×4 (07:52→22:38)
[2017-06-29] MEDS: HEPARIN SOD (PORCINE) 5000 UNITS/ML VIAL SQ ×2 (07:52→22:40)
[2017-06-29] MEDS: METOPROLOL TART 50 MG TAB PO ×2 (07:53→22:39)
[2017-06-29] MEDS: METAMUCIL (PSYLLIUM) PACKET PO ×2 (07:53→22:40)
[2017-06-29] MEDS: FORMOTEROL FUMARATE 20 MCG/2 ML INHALATION SOLUTION (PERFOROMIST) INH ×2 (08:01→19:44)
[2017-06-29] MEDS: BUDESONIDE 0.5 MG/2 ML INHALATION SUSPENSION INH ×2 (08:01→19:44)
[2017-06-29 10:16] LABS: PHOSPHORUS LEVEL 3.9 MG/DL (2.5-4.9)
[2017-06-29] MEDS: NYSTATIN 500,000 U/5 ML SUSP UDC SS ×3 (12:00→23:01)
[2017-06-30 05:06] LABS: HEMATOCRIT 27.8 % (42.0-52.0); HEMOGLOBIN 8.8 g/dl (13.5-17.5); MEAN CORPUSCULAR HEMOGLOBIN 30.9 pg (27.0-33.0); MEAN CORPUSCULAR HGB CONC 31.7 g/dl (32.0-36.5); MEAN CORPUSCULAR VOLUME 97.5 fl (80.0-96.0); PLATELET COUNT, AUTOMATED 454 10^3/uL (150-450); RED BLOOD COUNT 2.85 10^6/uL (4.30-6.10); RED CELL DISTRIBUTION WIDTH 15.9 % (11.5-14.5); WHITE BLOOD COUNT 17.8 10^3/uL (4.0-10.0)
[2017-06-30] MEDS: IPRATROPIUM 0.5MG/ALBUTEROL 2.5MG INH SOL UD 3ML (DUONEB)(J7620) NEB ×6 (05:10→23:32)
[2017-06-30 05:30] LABS: ANION GAP 6 MEQ/L (8-16); BLOOD UREA NITROGEN 44 MG/DL (7-18); CALCIUM LEVEL 7.9 MG/DL (8.8-10.2); CARBON DIOXIDE LEVEL 25 MEQ/L (21-32); CHLORIDE LEVEL 114 MEQ/L (98-107); GLOMERULAR FILTRATION RATE 23.7 (>49); GLUCOSE, FASTING 109 MG/DL (70-100); MAGNESIUM LEVEL 1.9 MG/DL (1.8-2.4); POTASSIUM SERUM 4.8 MEQ/L (3.5-5.1); SODIUM LEVEL 145 MEQ/L (136-145)
[2017-06-30] MEDS: NYSTATIN 500,000 U/5 ML SUSP UDC SS ×3 (05:46→17:54)
[2017-06-30] MEDS: KCL 20MEQ IN D5W 1000ML 1,000 ML IV (05:46)
[2017-06-30] MEDS: SODIUM CHLORIDE 0.9% INJ 10 ML SYR IV ×2 (05:46→17:54)
[2017-06-30] MEDS: FORMOTEROL FUMARATE 20 MCG/2 ML INHALATION SOLUTION (PERFOROMIST) INH ×2 (07:46→20:28)
[2017-06-30] MEDS: BUDESONIDE 0.5 MG/2 ML INHALATION SUSPENSION INH ×2 (07:46→20:28)
[2017-06-30] MEDS: METAMUCIL (PSYLLIUM) PACKET PO ×2 (08:18→20:43)
[2017-06-30] MEDS: PANTOPRAZOLE 40MG INJ (PROTONIX) (C9113) IV ×2 (08:18→20:44)
[2017-06-30] MEDS: HEPARIN SOD (PORCINE) 5000 UNITS/ML VIAL SQ ×2 (08:18→20:43)
[2017-06-30] MEDS: LOMOTIL 2.5MG/0.025MG TABLET PO ×4 (08:20→20:42)
[2017-06-30] MEDS: AMIODARONE 200 MG TAB (PACERONE) PO (08:20)
[2017-06-30] MEDS: MORPHINE 4 MG/ML 1ML VIAL/SYRINGE (J2270) IV ×2 (08:20→20:44)
[2017-06-30] MEDS: METOPROLOL TART 50 MG TAB PO ×2 (08:20→20:43)
[2017-06-30] MEDS: BLISTEX OINTMENT TOP ×3 (08:21→20:42)
[2017-06-30] MEDS: CEFTAROLINE FOSAMIL 300 MG in D5W 50 ML IV (12:34)
[2017-06-30] MEDS: DARBEPOETIN 100 MCG/0.5 ML *NON-DIALYSIS* SYRINGE (J0881) SQ (17:55)
[2017-07-01] MEDS: NYSTATIN 500,000 U/5 ML SUSP UDC SS ×4 (00:21→18:50)
[2017-07-01] MEDS: CEFTAROLINE FOSAMIL 300 MG in D5W 50 ML IV ×2 (00:21→11:10)
[2017-07-01] MEDS: MORPHINE 4 MG/ML 1ML VIAL/SYRINGE (J2270) IV ×2 (02:55→15:08)
[2017-07-01] MEDS: IPRATROPIUM 0.5MG/ALBUTEROL 2.5MG INH SOL UD 3ML (DUONEB)(J7620) NEB ×6 (03:33→23:28)
[2017-07-01] MEDS: SODIUM CHLORIDE 0.9% INJ 10 ML SYR IV ×3 (06:05→18:00)
[2017-07-01 06:17] LABS: HEMATOCRIT 26.6 % (42.0-52.0); HEMOGLOBIN 8.4 g/dl (13.5-17.5); MEAN CORPUSCULAR HEMOGLOBIN 30.7 pg (27.0-33.0); MEAN CORPUSCULAR HGB CONC 31.6 g/dl (32.0-36.5); MEAN CORPUSCULAR VOLUME 97.1 fl (80.0-96.0); PLATELET COUNT, AUTOMATED 464 10^3/uL (150-450); RED BLOOD COUNT 2.74 10^6/uL (4.30-6.10); RED CELL DISTRIBUTION WIDTH 16.3 % (11.5-14.5); WHITE BLOOD COUNT 16.5 10^3/uL (4.0-10.0)
[2017-07-01 06:31] LABS: ANION GAP 6 MEQ/L (8-16); BLOOD UREA NITROGEN 42 MG/DL (7-18); CALCIUM LEVEL 8.1 MG/DL (8.8-10.2); CARBON DIOXIDE LEVEL 24 MEQ/L (21-32); CHLORIDE LEVEL 115 MEQ/L (98-107); GLOMERULAR FILTRATION RATE 24.6 (>49); GLUCOSE, FASTING 94 MG/DL (70-100); POTASSIUM SERUM 4.7 MEQ/L (3.5-5.1); SODIUM LEVEL 145 MEQ/L (136-145)
[2017-07-01] MEDS: FORMOTEROL FUMARATE 20 MCG/2 ML INHALATION SOLUTION (PERFOROMIST) INH ×2 (07:19→19:25)
[2017-07-01] MEDS: BUDESONIDE 0.5 MG/2 ML INHALATION SUSPENSION INH ×2 (07:19→19:25)
[2017-07-01] MEDS: METAMUCIL (PSYLLIUM) PACKET PO ×2 (08:05→21:31)
[2017-07-01] MEDS: PANTOPRAZOLE 40MG INJ (PROTONIX) (C9113) IV ×2 (08:05→21:31)
[2017-07-01] MEDS: LOMOTIL 2.5MG/0.025MG TABLET PO ×4 (08:05→21:30)
[2017-07-01] MEDS: HEPARIN SOD (PORCINE) 5000 UNITS/ML VIAL SQ ×2 (08:05→21:31)
[2017-07-01] MEDS: METOPROLOL TART 50 MG TAB PO ×2 (08:06→21:30)
[2017-07-01] MEDS: BLISTEX OINTMENT TOP ×3 (08:07→21:31)
[2017-07-01] MEDS: AMIODARONE 200 MG TAB (PACERONE) PO (08:07)
[2017-07-02] MEDS: CEFTAROLINE FOSAMIL 300 MG in D5W 50 ML IV ×2 (00:01→12:35)
[2017-07-02] MEDS: NYSTATIN 500,000 U/5 ML SUSP UDC SS ×4 (00:01→17:12)
[2017-07-02] MEDS: MORPHINE 4 MG/ML 1ML VIAL/SYRINGE (J2270) IV (00:58)
[2017-07-02] MEDS: IPRATROPIUM 0.5MG/ALBUTEROL 2.5MG INH SOL UD 3ML (DUONEB)(J7620) NEB ×5 (03:40→19:41)
[2017-07-02] MEDS: SODIUM CHLORIDE 0.9% INJ 10 ML SYR IV ×2 (05:08→17:13)
[2017-07-02] MEDS: BUDESONIDE 0.5 MG/2 ML INHALATION SUSPENSION INH ×2 (07:42→19:41)
[2017-07-02] MEDS: FORMOTEROL FUMARATE 20 MCG/2 ML INHALATION SOLUTION (PERFOROMIST) INH ×2 (07:42→19:41)
[2017-07-02] MEDS: HEPARIN SOD (PORCINE) 5000 UNITS/ML VIAL SQ ×2 (08:27→21:14)
[2017-07-02] MEDS: PANTOPRAZOLE 40MG INJ (PROTONIX) (C9113) IV ×2 (08:27→21:13)
[2017-07-02] MEDS: METAMUCIL (PSYLLIUM) PACKET PO (08:27)
[2017-07-02] MEDS: AMIODARONE 200 MG TAB (PACERONE) PO (08:28)
[2017-07-02] MEDS: LOMOTIL 2.5MG/0.025MG TABLET PO ×4 (08:28→21:13)
[2017-07-02] MEDS: METOPROLOL TART 50 MG TAB PO ×2 (08:28→21:15)
[2017-07-02] MEDS: BLISTEX OINTMENT TOP ×3 (08:29→21:15)
[2017-07-02 10:45] LABS: HEMATOCRIT 27.2 % (42.0-52.0); HEMOGLOBIN 8.6 g/dl (13.5-17.5); MEAN CORPUSCULAR HEMOGLOBIN 31.3 pg (27.0-33.0); MEAN CORPUSCULAR HGB CONC 31.6 g/dl (32.0-36.5); MEAN CORPUSCULAR VOLUME 98.9 fl (80.0-96.0); PLATELET COUNT, AUTOMATED 479 10^3/uL (150-450); RED BLOOD COUNT 2.75 10^6/uL (4.30-6.10); RED CELL DISTRIBUTION WIDTH 16.4 % (11.5-14.5); WHITE BLOOD COUNT 16.7 10^3/uL (4.0-10.0)
[2017-07-02 11:04] LABS: ALBUMIN 1.7 GM/DL (3.2-5.2); ANION GAP 7 MEQ/L (8-16); BLOOD UREA NITROGEN 40 MG/DL (7-18); CARBON DIOXIDE LEVEL 23 MEQ/L (21-32); CHLORIDE LEVEL 121 MEQ/L (98-107); CREATININE FOR GFR 3.01 MG/DL (0.70-1.30); GLOMERULAR FILTRATION RATE 22.7 (>49); GLUCOSE, FASTING 100 MG/DL (70-100); POTASSIUM SERUM 4.8 MEQ/L (3.5-5.1); SODIUM LEVEL 151 MEQ/L (136-145)
[2017-07-02] MEDS: D5W 1,000 ML IV ×2 (11:28→22:11)
[2017-07-03] MEDS: CEFTAROLINE FOSAMIL 300 MG in D5W 50 ML IV ×2 (00:42→13:41)
[2017-07-03] MEDS: NYSTATIN 500,000 U/5 ML SUSP UDC SS ×4 (00:42→17:41)
[2017-07-03] MEDS: IPRATROPIUM 0.5MG/ALBUTEROL 2.5MG INH SOL UD 3ML (DUONEB)(J7620) NEB ×5 (01:56→20:00)
[2017-07-03] MEDS: SODIUM CHLORIDE 0.9% INJ 10 ML SYR IV ×2 (05:29→17:42)
[2017-07-03] MEDS: FORMOTEROL FUMARATE 20 MCG/2 ML INHALATION SOLUTION (PERFOROMIST) INH ×2 (08:00→21:40)
[2017-07-03] MEDS: BUDESONIDE 0.5 MG/2 ML INHALATION SUSPENSION INH ×2 (08:00→21:40)
[2017-07-03] MEDS: LOMOTIL 2.5MG/0.025MG TABLET PO ×4 (10:40→21:15)
[2017-07-03] MEDS: PANTOPRAZOLE 40MG INJ (PROTONIX) (C9113) IV ×2 (10:42→21:15)
[2017-07-03] MEDS: BLISTEX OINTMENT TOP ×3 (10:43→21:17)
[2017-07-03] MEDS: AMIODARONE 200 MG TAB (PACERONE) PO (10:45)
[2017-07-03] MEDS: HEPARIN SOD (PORCINE) 5000 UNITS/ML VIAL SQ ×2 (10:46→21:15)
[2017-07-03] MEDS: METOPROLOL TART 50 MG TAB PO ×2 (10:46→21:16)
[2017-07-03 11:20] LABS: BASO # 0.1 10^3/uL (0.0-0.2); BASO % 0.4 % (0.0-1.0); EOS # 0.3 10^3/uL (0.0-0.50); EOS % 1.4 % (0.0-3.0); HEMATOCRIT 26.8 % (42.0-52.0); HEMOGLOBIN 8.4 g/dl (13.5-17.5); IMMATURE GRANULOCYTE % 0.8 % (0-3.0); LYMPH # 1.7 10^3/uL (1.5-4.5); LYMPH % 9.3 % (24.0-44.0); MEAN CORPUSCULAR HGB CONC 31.3 g/dl (32.0-36.5); MEAN CORPUSCULAR VOLUME 98.9 fl (80.0-96.0); MONO # 1.2 10^3/uL (0.0-0.8); MONO % 6.4 % (0.0-5.0); NEUTROPHILS # 14.6 10^3/uL (1.8-7.7); NEUTROPHILS % 81.7 % (36.0-66.0); PLATELET COUNT, AUTOMATED 460 10^3/uL (150-450); RED BLOOD COUNT 2.71 10^6/uL (4.30-6.10); RED CELL DISTRIBUTION WIDTH 16.6 % (11.5-14.5); WHITE BLOOD COUNT 17.8 10^3/uL (4.0-10.0)
[2017-07-03 12:13] LABS: ALBUMIN 1.7 GM/DL (3.2-5.2); ANION GAP 7 MEQ/L (8-16); BLOOD UREA NITROGEN 35 MG/DL (7-18); CALCIUM LEVEL 7.7 MG/DL (8.8-10.2); CARBON DIOXIDE LEVEL 22 MEQ/L (21-32); CHLORIDE LEVEL 115 MEQ/L (98-107); CREATININE FOR GFR 2.82 MG/DL (0.70-1.30); GLOMERULAR FILTRATION RATE 24.4 (>49); GLUCOSE, FASTING 97 MG/DL (70-100); PHOSPHORUS LEVEL 4.4 MG/DL (2.5-4.9); POTASSIUM SERUM 4.5 MEQ/L (3.5-5.1); SODIUM LEVEL 144 MEQ/L (136-145)
[2017-07-04] MEDS: CEFTAROLINE FOSAMIL 300 MG in D5W 50 ML IV ×2 (00:47→14:43)
[2017-07-04] MEDS: NYSTATIN 500,000 U/5 ML SUSP UDC SS ×4 (00:47→18:00)
[2017-07-04] MEDS: IPRATROPIUM 0.5MG/ALBUTEROL 2.5MG INH SOL UD 3ML (DUONEB)(J7620) NEB ×7 (03:44→23:42)
[2017-07-04] MEDS: SODIUM CHLORIDE 0.9% INJ 10 ML SYR IV ×3 (05:10→18:00)
[2017-07-04] MEDS: FORMOTEROL FUMARATE 20 MCG/2 ML INHALATION SOLUTION (PERFOROMIST) INH ×2 (07:56→20:10)
[2017-07-04] MEDS: BUDESONIDE 0.5 MG/2 ML INHALATION SUSPENSION INH ×2 (07:56→20:10)
[2017-07-04] MEDS: BLISTEX OINTMENT TOP ×3 (08:15→21:03)
[2017-07-04] MEDS: PANTOPRAZOLE 40MG INJ (PROTONIX) (C9113) IV ×2 (08:16→21:02)
[2017-07-04] MEDS: HEPARIN SOD (PORCINE) 5000 UNITS/ML VIAL SQ ×2 (08:16→21:03)
[2017-07-04] MEDS: AMIODARONE 200 MG TAB (PACERONE) PO (08:17)
[2017-07-04] MEDS: LOMOTIL 2.5MG/0.025MG TABLET PO ×4 (08:17→21:02)
[2017-07-04] MEDS: METOPROLOL TART 50 MG TAB PO ×2 (08:17→21:01)
[2017-07-04 09:24] LABS: ALBUMIN 1.7 GM/DL (3.2-5.2); ANION GAP 6 MEQ/L (8-16); BLOOD UREA NITROGEN 32 MG/DL (7-18); CALCIUM LEVEL 7.9 MG/DL (8.8-10.2); CARBON DIOXIDE LEVEL 22 MEQ/L (21-32); CHLORIDE LEVEL 119 MEQ/L (98-107); CREATININE FOR GFR 2.64 MG/DL (0.70-1.30); GLOMERULAR FILTRATION RATE 26.4 (>49); GLUCOSE, FASTING 90 MG/DL (70-100); PHOSPHORUS LEVEL 4.4 MG/DL (2.5-4.9); POTASSIUM SERUM 4.3 MEQ/L (3.5-5.1); SODIUM LEVEL 147 MEQ/L (136-145)
[2017-07-04] MEDS: KCL 20MEQ IN D5W 1000ML 1,000 ML IV (14:42)
[2017-07-05] MEDS: NYSTATIN 500,000 U/5 ML SUSP UDC SS ×4 (00:48→17:42)
[2017-07-05] MEDS: CEFTAROLINE FOSAMIL 300 MG in D5W 50 ML IV ×2 (00:48→13:10)
[2017-07-05] MEDS: IPRATROPIUM 0.5MG/ALBUTEROL 2.5MG INH SOL UD 3ML (DUONEB)(J7620) NEB ×6 (04:01→23:33)
[2017-07-05] MEDS: KCL 20MEQ IN D5W 1000ML 1,000 ML IV (04:40)
[2017-07-05] MEDS: SODIUM CHLORIDE 0.9% INJ 10 ML SYR IV ×2 (05:22→18:00)
[2017-07-05 06:14] LABS: ALBUMIN 1.7 GM/DL (3.2-5.2); ANION GAP 7 MEQ/L (8-16); BLOOD UREA NITROGEN 31 MG/DL (7-18); CALCIUM LEVEL 8.1 MG/DL (8.8-10.2); CARBON DIOXIDE LEVEL 20 MEQ/L (21-32); CHLORIDE LEVEL 119 MEQ/L (98-107); CREATININE FOR GFR 2.66 MG/DL (0.70-1.30); GLOMERULAR FILTRATION RATE 26.2 (>49); GLUCOSE, FASTING 97 MG/DL (70-100); PHOSPHORUS LEVEL 4.1 MG/DL (2.5-4.9); POTASSIUM SERUM 4.4 MEQ/L (3.5-5.1); SODIUM LEVEL 146 MEQ/L (136-145)
[2017-07-05] MEDS: BUDESONIDE 0.5 MG/2 ML INHALATION SUSPENSION INH ×2 (07:35→20:44)
[2017-07-05] MEDS: FORMOTEROL FUMARATE 20 MCG/2 ML INHALATION SOLUTION (PERFOROMIST) INH ×2 (07:36→20:44)
[2017-07-05] MEDS: PANTOPRAZOLE 40MG INJ (PROTONIX) (C9113) IV ×2 (10:17→20:48)
[2017-07-05] MEDS: HEPARIN SOD (PORCINE) 5000 UNITS/ML VIAL SQ ×2 (10:17→20:50)
[2017-07-05] MEDS: LOMOTIL 2.5MG/0.025MG TABLET PO ×4 (10:18→20:49)
[2017-07-05] MEDS: METOPROLOL TART 50 MG TAB PO ×2 (10:18→20:49)
[2017-07-05] MEDS: BLISTEX OINTMENT TOP ×3 (10:18→20:51)
[2017-07-05] MEDS: AMIODARONE 200 MG TAB (PACERONE) PO (10:19)
[2017-07-05] MEDS: CHOLESTYRAMINE 4 GM PWD PKT PO (20:49)
[2017-07-06] MEDS: NYSTATIN 500,000 U/5 ML SUSP UDC SS ×4 (00:45→18:22)
[2017-07-06] MEDS: KCL 20MEQ IN D5W 1000ML 1,000 ML IV ×3 (00:46→21:24)
[2017-07-06] MEDS: CEFTAROLINE FOSAMIL 300 MG in D5W 50 ML IV ×2 (00:46→14:51)
[2017-07-06] MEDS: IPRATROPIUM 0.5MG/ALBUTEROL 2.5MG INH SOL UD 3ML (DUONEB)(J7620) NEB ×7 (03:38→23:29)
[2017-07-06] MEDS: SODIUM CHLORIDE 0.9% INJ 10 ML SYR IV ×2 (05:04→18:22)
[2017-07-06 05:48] LABS: BASO # 0.1 10^3/uL (0.0-0.2); BASO % 0.4 % (0.0-1.0); EOS # 0.3 10^3/uL (0.0-0.50); EOS % 2.1 % (0.0-3.0); HEMATOCRIT 26.3 % (42.0-52.0); HEMOGLOBIN 8.2 g/dl (13.5-17.5); IMMATURE GRANULOCYTE % 1.6 % (0-3.0); LYMPH # 1.5 10^3/uL (1.5-4.5); LYMPH % 10.3 % (24.0-44.0); MEAN CORPUSCULAR HEMOGLOBIN 30.8 pg (27.0-33.0); MEAN CORPUSCULAR HGB CONC 31.2 g/dl (32.0-36.5); MEAN CORPUSCULAR VOLUME 98.9 fl (80.0-96.0); MONO # 1.1 10^3/uL (0.0-0.8); MONO % 7.1 % (0.0-5.0); NEUTROPHILS # 11.7 10^3/uL (1.8-7.7); NEUTROPHILS % 78.5 % (36.0-66.0); PLATELET COUNT, AUTOMATED 363 10^3/uL (150-450); RED BLOOD COUNT 2.66 10^6/uL (4.30-6.10); WHITE BLOOD COUNT 14.9 10^3/uL (4.0-10.0)
[2017-07-06 05:51] LABS: ALBUMIN 1.7 GM/DL (3.2-5.2); ANION GAP 9 MEQ/L (8-16); BLOOD UREA NITROGEN 26 MG/DL (7-18); CALCIUM LEVEL 7.7 MG/DL (8.8-10.2); CARBON DIOXIDE LEVEL 20 MEQ/L (21-32); CHLORIDE LEVEL 115 MEQ/L (98-107); CREATININE FOR GFR 2.34 MG/DL (0.70-1.30); GLOMERULAR FILTRATION RATE 30.3 (>49); GLUCOSE, FASTING 89 MG/DL (70-100); PHOSPHORUS LEVEL 4.2 MG/DL (2.5-4.9); POTASSIUM SERUM 4.7 MEQ/L (3.5-5.1); SODIUM LEVEL 144 MEQ/L (136-145)
[2017-07-06] MEDS: BUDESONIDE 0.5 MG/2 ML INHALATION SUSPENSION INH ×2 (07:49→19:29)
[2017-07-06] MEDS: METOPROLOL TART 50 MG TAB PO ×2 (08:28→21:13)
[2017-07-06] MEDS: AMIODARONE 200 MG TAB (PACERONE) PO (08:28)
[2017-07-06] MEDS: CHOLESTYRAMINE 4 GM PWD PKT PO ×2 (08:28→21:13)
[2017-07-06] MEDS: PANTOPRAZOLE 40MG INJ (PROTONIX) (C9113) IV (08:28)
[2017-07-06] MEDS: LOMOTIL 2.5MG/0.025MG TABLET PO ×4 (08:28→21:12)
[2017-07-06] MEDS: BLISTEX OINTMENT TOP ×3 (08:29→21:15)
[2017-07-06] MEDS: HEPARIN SOD (PORCINE) 5000 UNITS/ML VIAL SQ ×2 (08:29→21:14)
[2017-07-06] MEDS: FORMOTEROL FUMARATE 20 MCG/2 ML INHALATION SOLUTION (PERFOROMIST) INH ×2 (11:37→19:29)
[2017-07-07] MEDS: NYSTATIN 500,000 U/5 ML SUSP UDC SS ×5 (00:19→23:56)
[2017-07-07] MEDS: CEFTAROLINE FOSAMIL 300 MG in D5W 50 ML IV ×3 (00:19→23:56)
[2017-07-07] MEDS: SODIUM CHLORIDE 0.9% INJ 10 ML SYR IV ×2 (05:27→18:31)
[2017-07-07 06:18] LABS: ALBUMIN 1.7 GM/DL (3.2-5.2); ANION GAP 7 MEQ/L (8-16); BLOOD UREA NITROGEN 23 MG/DL (7-18); CALCIUM LEVEL 7.6 MG/DL (8.8-10.2); CARBON DIOXIDE LEVEL 21 MEQ/L (21-32); CHLORIDE LEVEL 112 MEQ/L (98-107); CREATININE FOR GFR 2.05 MG/DL (0.70-1.30); GLOMERULAR FILTRATION RATE 35.3 (>49); GLUCOSE, FASTING 85 MG/DL (70-100); PHOSPHORUS LEVEL 4.3 MG/DL (2.5-4.9); SODIUM LEVEL 140 MEQ/L (136-145)
[2017-07-07] MEDS: FORMOTEROL FUMARATE 20 MCG/2 ML INHALATION SOLUTION (PERFOROMIST) INH ×2 (07:23→19:50)
[2017-07-07] MEDS: BUDESONIDE 0.5 MG/2 ML INHALATION SUSPENSION INH ×2 (07:23→19:50)
[2017-07-07] MEDS: CHOLESTYRAMINE 4 GM PWD PKT PO ×2 (07:32→21:13)
[2017-07-07] MEDS: LOMOTIL 2.5MG/0.025MG TABLET PO ×4 (07:32→21:14)
[2017-07-07] MEDS: AMIODARONE 200 MG TAB (PACERONE) PO (07:32)
[2017-07-07] MEDS: METOPROLOL TART 50 MG TAB PO ×2 (07:32→21:00)
[2017-07-07] MEDS: HEPARIN SOD (PORCINE) 5000 UNITS/ML VIAL SQ ×2 (07:32→21:13)
[2017-07-07] MEDS: BLISTEX OINTMENT TOP ×3 (07:33→21:14)
[2017-07-07] MEDS: DARBEPOETIN 100 MCG/0.5 ML *NON-DIALYSIS* SYRINGE (J0881) SQ (09:50)
[2017-07-07] MEDS: KCL 20MEQ IN D5W 1000ML 1,000 ML IV (16:29)
[2017-07-07] MEDS: NS 0.45% 1,000 ML IV (21:13)
[2017-07-08] MEDS: IPRATROPIUM 0.5MG/ALBUTEROL 2.5MG INH SOL UD 3ML (DUONEB)(J7620) NEB ×3 (02:40→15:24)
[2017-07-08] MEDS: SODIUM CHLORIDE 0.9% INJ 10 ML SYR IV ×3 (05:34→17:53)
[2017-07-08] MEDS: NYSTATIN 500,000 U/5 ML SUSP UDC SS ×3 (05:34→17:53)
[2017-07-08 06:14] LABS: ALBUMIN 1.7 GM/DL (3.2-5.2); ANION GAP 8 MEQ/L (8-16); BLOOD UREA NITROGEN 27 MG/DL (7-18); CALCIUM LEVEL 7.5 MG/DL (8.8-10.2); CARBON DIOXIDE LEVEL 18 MEQ/L (21-32); CHLORIDE LEVEL 110 MEQ/L (98-107); CREATININE FOR GFR 2.59 MG/DL (0.70-1.30); GLUCOSE, FASTING 88 MG/DL (70-100); PHOSPHORUS LEVEL 4.3 MG/DL (2.5-4.9); SODIUM LEVEL 136 MEQ/L (136-145)
[2017-07-08 06:18] LABS: FERRITIN 673 NG/ML (26-388); IRON (FE) 19 UG/DL (65-175); PERCENT SATURATION 10.8 % (19.7-50.0); TOTAL IRON BINDING CAPACITY 176 UG/DL (250-450)
[2017-07-08] MEDS: BUDESONIDE 0.5 MG/2 ML INHALATION SUSPENSION INH ×2 (07:14→20:33)
[2017-07-08] MEDS: FORMOTEROL FUMARATE 20 MCG/2 ML INHALATION SOLUTION (PERFOROMIST) INH ×2 (07:14→20:33)
[2017-07-08] MEDS: LOMOTIL 2.5MG/0.025MG TABLET PO ×4 (08:43→20:27)
[2017-07-08] MEDS: HEPARIN SOD (PORCINE) 5000 UNITS/ML VIAL SQ ×2 (08:43→20:23)
[2017-07-08] MEDS: CHOLESTYRAMINE 4 GM PWD PKT PO ×2 (08:43→20:23)
[2017-07-08] MEDS: AMIODARONE 200 MG TAB (PACERONE) PO (08:44)
[2017-07-08] MEDS: METOPROLOL TART 50 MG TAB PO ×2 (08:46→20:23)
[2017-07-08] MEDS: BLISTEX OINTMENT TOP ×3 (08:46→20:24)
[2017-07-08] MEDS: CEFTAROLINE FOSAMIL 300 MG in D5W 50 ML IV (12:37)
[2017-07-08] MEDS ORDERED: IPRATROPIUM 0.5MG/ALBUTEROL 2.5MG INH SOL UD 3ML (DUONEB)(J7620) NEB (16:00)
[2017-07-09] MEDS: IPRATROPIUM 0.5MG/ALBUTEROL 2.5MG INH SOL UD 3ML (DUONEB)(J7620) NEB ×3 (00:06→15:30)
[2017-07-09] MEDS: CEFTAROLINE FOSAMIL 300 MG in D5W 50 ML IV (00:39)
[2017-07-09] MEDS: NYSTATIN 500,000 U/5 ML SUSP UDC SS ×4 (00:39→16:56)
[2017-07-09] MEDS: SODIUM CHLORIDE 0.9% INJ 10 ML SYR IV ×3 (02:28→18:00)
[2017-07-09] MEDS: KETOROLAC 30 MG/ML VIAL (J1885) IV (06:44)
[2017-07-09] MEDS: SODIUM CHLORIDE 0.9% 1000 ML IV (07:12)
[2017-07-09] MEDS: BUDESONIDE 0.5 MG/2 ML INHALATION SUSPENSION INH ×2 (07:24→20:30)
[2017-07-09] MEDS: VANCOMYCIN HCL 1,000 MG, VIAL MATE ADAPTER 1 EACH in D5W 250 ML IV (07:26)
[2017-07-09] MEDS: LOMOTIL 2.5MG/0.025MG TABLET PO ×3 (07:30→12:00)
[2017-07-09 07:52] LABS: HEMATOCRIT 24.3 % (42.0-52.0); HEMOGLOBIN 7.8 g/dl (13.5-17.5); MEAN CORPUSCULAR HEMOGLOBIN 31.2 pg (27.0-33.0); MEAN CORPUSCULAR HGB CONC 32.1 g/dl (32.0-36.5); MEAN CORPUSCULAR VOLUME 97.2 fl (80.0-96.0); PLATELET COUNT, AUTOMATED 241 10^3/uL (150-450); WHITE BLOOD COUNT 28.3 10^3/uL (4.0-10.0)
[2017-07-09 07:55] LABS: ADD MANUAL DIFFER YES; DIFF SLIDE NUMBER 126; POSITIVE DIFF POS FLAG; POSITIVE MORPH POS FLAG
[2017-07-09 08:00] LABS: LACTIC ACID SEPSIS PROTOCOL 1.1 MMOL/L (0.4-2.0)
[2017-07-09 08:03] LABS: ANISOCYTOSIS 2+; BANDS 12 % (< 11); LYMPHOCYTES 2 % (16-52); MONOCYTES 2 % (0-8); NEUTROPHILS 84 % (35-75); PLATELET ESTIMATE NORMAL (NORMAL); POLYCHROMASIA 1+
[2017-07-09 08:04] LABS: HYPOCHROMASIA 1+
[2017-07-09 08:08] LABS: AMMONIA 25 uMOL/L (<32)
[2017-07-09] MEDS: METOPROLOL TART 50 MG TAB PO ×2 (08:11→21:00)
[2017-07-09 08:13] LABS: ALBUMIN 1.7 GM/DL (3.2-5.2); ALKALINE PHOSPHATASE 123 U/L (45-117); ALT/SGPT 11 U/L (12-78); ANION GAP 7 MEQ/L (8-16); AST/SGOT 15 U/L (7-37); BILIRUBIN,DIRECT 0.6 MG/DL (0.0-0.2); BILIRUBIN,TOTAL 0.9 MG/DL (0.2-1.0); BLOOD UREA NITROGEN 32 MG/DL (7-18); C REACTIVE PROTEIN QUANTITATIV 7.27 MG/DL (0.00-0.30); CALCIUM LEVEL 7.3 MG/DL (8.8-10.2); CARBON DIOXIDE LEVEL 17 MEQ/L (21-32); CHLORIDE LEVEL 114 MEQ/L (98-107); CREATININE FOR GFR 2.76 MG/DL (0.70-1.30); GLOMERULAR FILTRATION RATE 25.1 (>49); GLUCOSE, FASTING 81 MG/DL (70-100); POTASSIUM SERUM 4.6 MEQ/L (3.5-5.1); SODIUM LEVEL 138 MEQ/L (136-145); TOTAL PROTEIN 5.9 GM/DL (6.4-8.2)
[2017-07-09] MEDS ORDERED: MEROPENEM INJ 1 GM in APPROPRIATE DILUENT 1 EA IV (08:30)
[2017-07-09] MEDS: NS 1,000 ML IV ×2 (08:30→13:00)
[2017-07-09 08:31] LABS: ERYTHROCYTE SEDIMENTATION RATE 127 mm/hr (0-20)
[2017-07-09] MEDS: MEROPENEM INJ 1 GM in APPROPRIATE DILUENT 1 EA IV ×2 (09:00→16:56)
[2017-07-09] MEDS: CHOLESTYRAMINE 4 GM PWD PKT PO (09:00)
[2017-07-09] MEDS: BLISTEX OINTMENT TOP ×3 (09:00→21:00)
[2017-07-09] MEDS: NOREPINEPHRINE BITARTRATE 8 MG in D5W 492 ML IV (09:15)
[2017-07-09 09:24] LABS: AMYLASE 21 U/L (25-115); LIPASE 51 U/L (73-393)
[2017-07-09] MEDS ORDERED: VANCOMYCIN HCL 1,000 MG, VIAL MATE ADAPTER 1 EACH in D5W 250 ML IV (10:00)
[2017-07-09] MEDS: AMIODARONE 200 MG TAB (PACERONE) PO ×2 (10:24→14:57)
[2017-07-09] MEDS: HEPARIN SOD (PORCINE) 5000 UNITS/ML VIAL SQ (10:30)
[2017-07-09] MEDS: FLUCONAZOLE 400 MG in APPROPRIATE DILUENT 1 EA IV (10:57)
[2017-07-09 11:27] LABS: KETONE, URINE AUTO RFX NEGATIVE (NEGATIVE); LEUKOCYTE ESTERASE UR AUTO RFX NEGATIVE (NEGATIVE); NITRITE, URINE AUTO RFX NEGATIVE (NEGATIVE); RBC, URINE AUTO RFX 6 /HPF (0-3); SQUAM EPITHELIAL CELL UR AURFX 0 /HPF (0-6); WBC, URINE AUTO RFX 3 /HPF (0-3)
[2017-07-09 12:04] LABS: CK-MB VALUE MASS 4.5 NG/ML (<3.6); CPK CREATINE PHOSPHOKINASE 88 U/L (39-308); MB/CK RELATIVE INDEX 5.11 (< OR =4); TROPONIN I 0.04 NG/ML (< 0.10)
[2017-07-09] MEDS: diphenhydrAMINE 25 MG CAP PO (13:00)
[2017-07-09] MEDS: ACETAMINOPHEN TAB 650MG DOSE (2X325MG) PO (13:00)
[2017-07-09] MEDS: FORMOTEROL FUMARATE 20 MCG/2 ML INHALATION SOLUTION (PERFOROMIST) INH ×2 (13:53→20:30)
[2017-07-09 14:59] LABS: IMMEDIATE SPIN CROSSMATCH 1 2
[2017-07-10] MEDS: NYSTATIN 500,000 U/5 ML SUSP UDC SS ×2 (00:24→06:41)
[2017-07-10] MEDS: PANTOPRAZOLE 40MG INJ (PROTONIX) (C9113) IV ×2 (00:24→22:56)
[2017-07-10] MEDS: MEROPENEM INJ 1 GM in APPROPRIATE DILUENT 1 EA IV ×3 (00:25→22:57)
[2017-07-10] MEDS: CHOLESTYRAMINE 4 GM PWD PKT PO ×3 (01:25→22:56)
[2017-07-10 04:58] LABS: BASO # 0.1 10^3/uL (0.0-0.2); BASO % 0.4 % (0.0-1.0); EOS # 0.2 10^3/uL (0.0-0.50); EOS % 1.1 % (0.0-3.0); HEMATOCRIT 28.7 % (42.0-52.0); HEMOGLOBIN 9.1 g/dl (13.5-17.5); IMMATURE GRANULOCYTE % 0.6 % (0-3.0); LYMPH # 1.3 10^3/uL (1.5-4.5); LYMPH % 7.7 % (24.0-44.0); MEAN CORPUSCULAR HEMOGLOBIN 29.8 pg (27.0-33.0); MEAN CORPUSCULAR HGB CONC 31.7 g/dl (32.0-36.5); MEAN CORPUSCULAR VOLUME 94.1 fl (80.0-96.0); MONO # 1.5 10^3/uL (0.0-0.8); MONO % 8.6 % (0.0-5.0); NEUTROPHILS % 81.6 % (36.0-66.0); PLATELET COUNT, AUTOMATED 228 10^3/uL (150-450); RED BLOOD COUNT 3.05 10^6/uL (4.30-6.10); RED CELL DISTRIBUTION WIDTH 19.5 % (11.5-14.5); WHITE BLOOD COUNT 17.1 10^3/uL (4.0-10.0)
[2017-07-10 05:19] LABS: ANION GAP 6 MEQ/L (8-16); BLOOD UREA NITROGEN 35 MG/DL (7-18); CALCIUM LEVEL 7.6 MG/DL (8.8-10.2); CARBON DIOXIDE LEVEL 19 MEQ/L (21-32); CHLORIDE LEVEL 117 MEQ/L (98-107); CREATININE FOR GFR 2.68 MG/DL (0.70-1.30); GLOMERULAR FILTRATION RATE 25.9 (>49); GLUCOSE, FASTING 90 MG/DL (70-100); MAGNESIUM LEVEL 1.8 MG/DL (1.8-2.4); POTASSIUM SERUM 4.7 MEQ/L (3.5-5.1); SODIUM LEVEL 142 MEQ/L (136-145)
[2017-07-10] MEDS: SODIUM CHLORIDE 0.9% INJ 10 ML SYR IV (06:00)
[2017-07-10] MEDS: IPRATROPIUM 0.5MG/ALBUTEROL 2.5MG INH SOL UD 3ML (DUONEB)(J7620) NEB ×2 (08:00)
[2017-07-10] MEDS: AMIODARONE 200 MG TAB (PACERONE) PO (08:10)
[2017-07-10] MEDS: FORMOTEROL FUMARATE 20 MCG/2 ML INHALATION SOLUTION (PERFOROMIST) INH ×2 (08:27→20:31)
[2017-07-10] MEDS: BUDESONIDE 0.5 MG/2 ML INHALATION SUSPENSION INH ×2 (08:27→20:31)
[2017-07-10] MEDS ORDERED: FLUCONAZOLE 200 MG in APPROPRIATE DILUENT 1 EA IV (09:00)
[2017-07-10] MEDS: VANCOMYCIN HCL 1,000 MG, VIAL MATE ADAPTER 1 EACH in D5W 250 ML IV (10:17)
[2017-07-10] MEDS ORDERED: IPRATROPIUM 0.5MG/ALBUTEROL 2.5MG INH SOL UD 3ML (DUONEB)(J7620) NEB (15:30)
[2017-07-10] MEDS ORDERED: SLF 3 ML SYR IV (16:30)
[2017-07-10] MEDS: AQUAPHOR **100GM** OINT TOP (21:00)
[2017-07-10] MEDS: HEPARIN SOD (PORCINE) 5000 UNITS/ML VIAL SQ (22:56)
[2017-07-10] MEDS: SLF 3 ML SYR IV (22:57)
[2017-07-11] MEDS: SLF 3 ML SYR IV ×3 (06:00→20:53)
[2017-07-11] MEDS: FORMOTEROL FUMARATE 20 MCG/2 ML INHALATION SOLUTION (PERFOROMIST) INH ×2 (07:20→20:42)
[2017-07-11] MEDS: BUDESONIDE 0.5 MG/2 ML INHALATION SUSPENSION INH ×2 (07:20→20:42)
[2017-07-11 08:48] LABS: BASO # 0.1 10^3/uL (0.0-0.2); BASO % 0.8 % (0.0-1.0); EOS # 0.2 10^3/uL (0.0-0.50); EOS % 2.4 % (0.0-3.0); HEMOGLOBIN 9.4 g/dl (13.5-17.5); IMMATURE GRANULOCYTE % 0.5 % (0-3.0); LYMPH # 1.1 10^3/uL (1.5-4.5); LYMPH % 11.3 % (24.0-44.0); MEAN CORPUSCULAR HEMOGLOBIN 29.6 pg (27.0-33.0); MEAN CORPUSCULAR HGB CONC 31.3 g/dl (32.0-36.5); MEAN CORPUSCULAR VOLUME 94.3 fl (80.0-96.0); MONO # 0.9 10^3/uL (0.0-0.8); MONO % 9.3 % (0.0-5.0); NEUTROPHILS # 7.6 10^3/uL (1.8-7.7); NEUTROPHILS % 75.7 % (36.0-66.0); PLATELET COUNT, AUTOMATED 266 10^3/uL (150-450); RED BLOOD COUNT 3.18 10^6/uL (4.30-6.10); RED CELL DISTRIBUTION WIDTH 18.7 % (11.5-14.5); WHITE BLOOD COUNT 10.1 10^3/uL (4.0-10.0)
[2017-07-11] MEDS: CHOLESTYRAMINE 4 GM PWD PKT PO ×2 (08:53→20:50)
[2017-07-11] MEDS: AMIODARONE 200 MG TAB (PACERONE) PO (08:53)
[2017-07-11] MEDS: HEPARIN SOD (PORCINE) 5000 UNITS/ML VIAL SQ ×2 (08:53→20:51)
[2017-07-11] MEDS: VANCOMYCIN HCL 1,000 MG, VIAL MATE ADAPTER 1 EACH in D5W 250 ML IV (08:54)
[2017-07-11] MEDS: MEROPENEM INJ 1 GM in APPROPRIATE DILUENT 1 EA IV ×2 (08:54→20:51)
[2017-07-11] MEDS: AQUAPHOR **100GM** OINT TOP ×2 (09:00→20:51)
[2017-07-11 09:10] LABS: ANION GAP 6 MEQ/L (8-16); BLOOD UREA NITROGEN 27 MG/DL (7-18); CALCIUM LEVEL 7.9 MG/DL (8.8-10.2); CARBON DIOXIDE LEVEL 19 MEQ/L (21-32); CHLORIDE LEVEL 121 MEQ/L (98-107); CREATININE FOR GFR 1.94 MG/DL (0.70-1.30); GLOMERULAR FILTRATION RATE 37.6 (>49); GLUCOSE, FASTING 89 MG/DL (70-100); MAGNESIUM LEVEL 1.9 MG/DL (1.8-2.4); POTASSIUM SERUM 4.8 MEQ/L (3.5-5.1); SODIUM LEVEL 146 MEQ/L (136-145); VANCOMYCIN LEVEL TROUGH 14.2 UG/ML (10.0-20.0)
[2017-07-11 17:57] LABS: BEDSIDE GLUCOSE 115 MG/DL (80-115)
[2017-07-11] MEDS: AMINO AC/ELECTROLYTE/DEX/CALC 1,000 ML IV (18:44)
[2017-07-11] MEDS: FAT EMULSION IV 20% 500 ML IV (18:44)
[2017-07-11] MEDS: HumaLOG INSULIN (NovoLOG) PER UNIT SC (18:53)
[2017-07-11 20:45] LABS: BEDSIDE GLUCOSE 114 MG/DL (80-115)
[2017-07-11] MEDS: PANTOPRAZOLE 40MG INJ (PROTONIX) (C9113) IV (20:53)
[2017-07-12 00:07] LABS: BEDSIDE GLUCOSE 119 MG/DL (80-115)
[2017-07-12] MEDS: SLF 3 ML SYR IV ×3 (05:20→22:27)
[2017-07-12 05:50] LABS: BASO # 0.1 10^3/uL (0.0-0.2); BASO % 0.8 % (0.0-1.0); EOS # 0.3 10^3/uL (0.0-0.50); EOS % 3.7 % (0.0-3.0); HEMATOCRIT 31.6 % (42.0-52.0); HEMOGLOBIN 9.9 g/dl (13.5-17.5); IMMATURE GRANULOCYTE % 0.8 % (0-3.0); LYMPH # 1.2 10^3/uL (1.5-4.5); LYMPH % 13.8 % (24.0-44.0); MEAN CORPUSCULAR HEMOGLOBIN 29.6 pg (27.0-33.0); MEAN CORPUSCULAR HGB CONC 31.3 g/dl (32.0-36.5); MEAN CORPUSCULAR VOLUME 94.3 fl (80.0-96.0); MONO # 0.9 10^3/uL (0.0-0.8); MONO % 10.7 % (0.0-5.0); NEUTROPHILS # 6.1 10^3/uL (1.8-7.7); NEUTROPHILS % 70.2 % (36.0-66.0); PLATELET COUNT, AUTOMATED 292 10^3/uL (150-450); RED BLOOD COUNT 3.35 10^6/uL (4.30-6.10); RED CELL DISTRIBUTION WIDTH 18.6 % (11.5-14.5); WHITE BLOOD COUNT 8.8 10^3/uL (4.0-10.0)
[2017-07-12] MEDS: HumaLOG INSULIN (NovoLOG) PER UNIT SC ×3 (06:00→12:00)
[2017-07-12 06:14] LABS: ANION GAP 7 MEQ/L (8-16); BLOOD UREA NITROGEN 22 MG/DL (7-18); CALCIUM LEVEL 8.1 MG/DL (8.8-10.2); CARBON DIOXIDE LEVEL 18 MEQ/L (21-32); CHLORIDE LEVEL 119 MEQ/L (98-107); CREATININE FOR GFR 1.64 MG/DL (0.70-1.30); GLOMERULAR FILTRATION RATE 45.7 (>49); GLUCOSE, FASTING 99 MG/DL (70-100); SODIUM LEVEL 144 MEQ/L (136-145)
[2017-07-12 06:23] LABS: POTASSIUM SERUM 5.2 MEQ/L (3.5-5.1)
[2017-07-12] MEDS: BUDESONIDE 0.5 MG/2 ML INHALATION SUSPENSION INH ×2 (07:07→19:45)
[2017-07-12] MEDS: FORMOTEROL FUMARATE 20 MCG/2 ML INHALATION SOLUTION (PERFOROMIST) INH ×2 (07:07→19:46)
[2017-07-12] MEDS: AQUAPHOR **100GM** OINT TOP ×2 (09:00→22:26)
[2017-07-12] MEDS: AMIODARONE 200 MG TAB (PACERONE) PO (10:09)
[2017-07-12] MEDS: VANCOMYCIN HCL 1,000 MG, VIAL MATE ADAPTER 1 EACH in D5W 250 ML IV (10:09)
[2017-07-12] MEDS: CHOLESTYRAMINE 4 GM PWD PKT PO ×2 (10:09→22:26)
[2017-07-12] MEDS: HEPARIN SOD (PORCINE) 5000 UNITS/ML VIAL SQ ×2 (10:13→22:25)
[2017-07-12] MEDS: MEROPENEM INJ 1 GM in APPROPRIATE DILUENT 1 EA IV ×3 (11:57→22:24)
[2017-07-12 12:16] LABS: BEDSIDE GLUCOSE 103 MG/DL (80-115)
[2017-07-12] MEDS: AMINO AC/ELECTROLYTE/DEX/CALC 1,000 ML IV (19:18)
[2017-07-12] MEDS: FAT EMULSION IV 20% 500 ML IV (19:18)
[2017-07-12] MEDS: PANTOPRAZOLE 40MG INJ (PROTONIX) (C9113) IV (22:24)
[2017-07-12] MEDS: LINEZOLID 600MG TABLET (ZYVOX) PO (22:26)
[2017-07-13 05:05] LABS: BASO # 0.1 10^3/uL (0.0-0.2); BASO % 0.6 % (0.0-1.0); EOS # 0.4 10^3/uL (0.0-0.50); EOS % 3.2 % (0.0-3.0); HEMATOCRIT 33.3 % (42.0-52.0); HEMOGLOBIN 10.3 g/dl (13.5-17.5); IMMATURE GRANULOCYTE % 0.8 % (0-3.0); LYMPH # 1.2 10^3/uL (1.5-4.5); LYMPH % 11.2 % (24.0-44.0); MEAN CORPUSCULAR HEMOGLOBIN 29.3 pg (27.0-33.0); MEAN CORPUSCULAR HGB CONC 30.9 g/dl (32.0-36.5); MEAN CORPUSCULAR VOLUME 94.9 fl (80.0-96.0); MONO # 0.9 10^3/uL (0.0-0.8); MONO % 8.3 % (0.0-5.0); NEUTROPHILS # 8.4 10^3/uL (1.8-7.7); NEUTROPHILS % 75.9 % (36.0-66.0); PLATELET COUNT, AUTOMATED 304 10^3/uL (150-450); RED BLOOD COUNT 3.51 10^6/uL (4.30-6.10); RED CELL DISTRIBUTION WIDTH 18.2 % (11.5-14.5); WHITE BLOOD COUNT 11.1 10^3/uL (4.0-10.0)
[2017-07-13 05:26] LABS: ANION GAP 5 MEQ/L (8-16); BLOOD UREA NITROGEN 20 MG/DL (7-18); CALCIUM LEVEL 8.3 MG/DL (8.8-10.2); CARBON DIOXIDE LEVEL 22 MEQ/L (21-32); CHLORIDE LEVEL 114 MEQ/L (98-107); CREATININE FOR GFR 1.35 MG/DL (0.70-1.30); GLOMERULAR FILTRATION RATE 57.2 (>49); GLUCOSE, FASTING 98 MG/DL (70-100); MAGNESIUM LEVEL 1.8 MG/DL (1.8-2.4); SODIUM LEVEL 141 MEQ/L (136-145)
[2017-07-13 05:34] LABS: POTASSIUM SERUM 5.5 MEQ/L (3.5-5.1)
[2017-07-13] MEDS: SLF 3 ML SYR IV ×3 (06:00→21:14)
[2017-07-13] MEDS: FORMOTEROL FUMARATE 20 MCG/2 ML INHALATION SOLUTION (PERFOROMIST) INH ×2 (07:05→20:09)
[2017-07-13] MEDS: BUDESONIDE 0.5 MG/2 ML INHALATION SUSPENSION INH ×2 (07:05→20:09)
[2017-07-13] MEDS: MEROPENEM INJ 1 GM in APPROPRIATE DILUENT 1 EA IV ×2 (10:17→21:13)
[2017-07-13] MEDS: SOD POLYSTYRENE SULFONATE SUSP 15 GM/60 ML UD PO (10:18)
[2017-07-13] MEDS: HEPARIN SOD (PORCINE) 5000 UNITS/ML VIAL SQ ×2 (10:18→21:12)
[2017-07-13] MEDS: AMIODARONE 200 MG TAB (PACERONE) PO (10:19)
[2017-07-13] MEDS: CHOLESTYRAMINE 4 GM PWD PKT PO ×4 (11:58→22:28)
[2017-07-13] MEDS: LINEZOLID 600MG TABLET (ZYVOX) PO ×2 (11:59→21:13)
[2017-07-13] MEDS: AQUAPHOR **100GM** OINT TOP ×2 (11:59→21:14)
[2017-07-13] MEDS: AMINO AC/ELECTROLYTE/DEX/CALC 1,000 ML IV (12:00)
[2017-07-13] MEDS: FAT EMULSION IV 20% 500 ML IV (18:44)
[2017-07-13] MEDS: PANTOPRAZOLE 40MG INJ (PROTONIX) (C9113) IV (21:12)
[2017-07-13] MEDS: ACETAMINOPHEN 325 MG/10.15 ML UDC GT (21:24)
[2017-07-14 04:17] LABS: BASO # 0.1 10^3/uL (0.0-0.2); BASO % 0.6 % (0.0-1.0); EOS # 0.3 10^3/uL (0.0-0.50); EOS % 2.5 % (0.0-3.0); HEMATOCRIT 32.6 % (42.0-52.0); HEMOGLOBIN 10.3 g/dl (13.5-17.5); IMMATURE GRANULOCYTE % 0.9 % (0-3.0); LYMPH # 1.2 10^3/uL (1.5-4.5); MEAN CORPUSCULAR HEMOGLOBIN 29.5 pg (27.0-33.0); MEAN CORPUSCULAR HGB CONC 31.6 g/dl (32.0-36.5); MEAN CORPUSCULAR VOLUME 93.4 fl (80.0-96.0); MONO # 0.8 10^3/uL (0.0-0.8); MONO % 7.4 % (0.0-5.0); NEUTROPHILS # 8.2 10^3/uL (1.8-7.7); NEUTROPHILS % 77.6 % (36.0-66.0); PLATELET COUNT, AUTOMATED 321 10^3/uL (150-450); RED BLOOD COUNT 3.49 10^6/uL (4.30-6.10); RED CELL DISTRIBUTION WIDTH 17.9 % (11.5-14.5); WHITE BLOOD COUNT 10.6 10^3/uL (4.0-10.0)
[2017-07-14 04:37] LABS: ANION GAP 7 MEQ/L (8-16); BLOOD UREA NITROGEN 18 MG/DL (7-18); CARBON DIOXIDE LEVEL 19 MEQ/L (21-32); CHLORIDE LEVEL 113 MEQ/L (98-107); CREATININE FOR GFR 1.29 MG/DL (0.70-1.30); GLOMERULAR FILTRATION RATE > 60.0 (>49); GLUCOSE, FASTING 107 MG/DL (70-100); MAGNESIUM LEVEL 1.9 MG/DL (1.8-2.4); POTASSIUM SERUM 4.7 MEQ/L (3.5-5.1); SODIUM LEVEL 139 MEQ/L (136-145)
[2017-07-14] MEDS: SLF 3 ML SYR IV ×3 (05:43→22:32)
[2017-07-14] MEDS: AMINO AC/ELECTROLYTE/DEX/CALC 1,000 ML IV (05:43)
[2017-07-14] MEDS: FORMOTEROL FUMARATE 20 MCG/2 ML INHALATION SOLUTION (PERFOROMIST) INH ×2 (07:32→19:59)
[2017-07-14] MEDS: BUDESONIDE 0.5 MG/2 ML INHALATION SUSPENSION INH ×2 (07:32→19:59)
[2017-07-14] MEDS: HEPARIN SOD (PORCINE) 5000 UNITS/ML VIAL SQ ×2 (09:22→20:46)
[2017-07-14] MEDS: LINEZOLID 600MG TABLET (ZYVOX) PO ×2 (09:23→20:46)
[2017-07-14] MEDS: CHOLESTYRAMINE 4 GM PWD PKT PO ×4 (09:23→20:46)
[2017-07-14] MEDS: MEROPENEM INJ 1 GM in APPROPRIATE DILUENT 1 EA IV ×2 (09:23→20:47)
[2017-07-14] MEDS: AMIODARONE 200 MG TAB (PACERONE) PO (09:23)
[2017-07-14] MEDS ORDERED: traMADol 50 MG TAB PO (09:30)
[2017-07-14] MEDS: AQUAPHOR **100GM** OINT TOP ×2 (10:00→20:48)
[2017-07-14] MEDS: DARBEPOETIN 100 MCG/0.5 ML *NON-DIALYSIS* SYRINGE (J0881) SQ (11:17)
[2017-07-14] MEDS: FAT EMULSION IV 20% 500 ML IV (17:57)
[2017-07-14] MEDS: PANTOPRAZOLE 40MG INJ (PROTONIX) (C9113) IV (22:32)
[2017-07-15] MEDS: AMINO AC/ELECTROLYTE/DEX/CALC 1,000 ML IV ×2 (01:53→22:35)
[2017-07-15 05:16] LABS: BASO # 0.1 10^3/uL (0.0-0.2); BASO % 0.6 % (0.0-1.0); EOS # 0.4 10^3/uL (0.0-0.50); EOS % 3.2 % (0.0-3.0); HEMATOCRIT 29.8 % (42.0-52.0); HEMOGLOBIN 9.4 g/dl (13.5-17.5); LYMPH # 1.4 10^3/uL (1.5-4.5); LYMPH % 12.5 % (24.0-44.0); MEAN CORPUSCULAR HEMOGLOBIN 29.6 pg (27.0-33.0); MEAN CORPUSCULAR HGB CONC 31.5 g/dl (32.0-36.5); MEAN CORPUSCULAR VOLUME 93.7 fl (80.0-96.0); MONO # 1.1 10^3/uL (0.0-0.8); MONO % 9.5 % (0.0-5.0); NEUTROPHILS # 8.1 10^3/uL (1.8-7.7); NEUTROPHILS % 73.2 % (36.0-66.0); PLATELET COUNT, AUTOMATED 338 10^3/uL (150-450); RED BLOOD COUNT 3.18 10^6/uL (4.30-6.10); RED CELL DISTRIBUTION WIDTH 17.7 % (11.5-14.5); WHITE BLOOD COUNT 11.1 10^3/uL (4.0-10.0)
[2017-07-15 05:22] LABS: MAGNESIUM LEVEL 1.8 MG/DL (1.8-2.4)
[2017-07-15] MEDS: SLF 3 ML SYR IV ×3 (06:00→22:38)
[2017-07-15] MEDS: CHOLESTYRAMINE 4 GM PWD PKT PO ×4 (07:30→21:50)
[2017-07-15] MEDS: BUDESONIDE 0.5 MG/2 ML INHALATION SUSPENSION INH ×2 (09:09→20:00)
[2017-07-15] MEDS: FORMOTEROL FUMARATE 20 MCG/2 ML INHALATION SOLUTION (PERFOROMIST) INH ×2 (09:09→20:00)
[2017-07-15] MEDS: LINEZOLID 600MG TABLET (ZYVOX) PO ×2 (09:35→21:28)
[2017-07-15] MEDS: AMIODARONE 200 MG TAB (PACERONE) PO (09:35)
[2017-07-15] MEDS: MEROPENEM INJ 1 GM in APPROPRIATE DILUENT 1 EA IV ×2 (09:35→21:28)
[2017-07-15] MEDS: HEPARIN SOD (PORCINE) 5000 UNITS/ML VIAL SQ ×2 (09:36→21:31)
[2017-07-15] MEDS: AQUAPHOR **100GM** OINT TOP ×2 (09:37→21:31)
[2017-07-15] MEDS: FAT EMULSION IV 20% 500 ML IV (17:59)
[2017-07-15] MEDS: PANTOPRAZOLE 40MG INJ (PROTONIX) (C9113) IV (21:27)
[2017-07-16] MEDS: LevoFLOXacin 500 MG TABLET PO (05:31)
[2017-07-16] MEDS: SLF 3 ML SYR IV ×3 (05:31→23:21)
[2017-07-16 05:38] LABS: BASO # 0.1 10^3/uL (0.0-0.2); BASO % 0.9 % (0.0-1.0); EOS # 0.4 10^3/uL (0.0-0.50); EOS % 4.6 % (0.0-3.0); HEMATOCRIT 30.3 % (42.0-52.0); HEMOGLOBIN 9.8 g/dl (13.5-17.5); IMMATURE GRANULOCYTE % 1.5 % (0-3.0); LYMPH # 1.3 10^3/uL (1.5-4.5); LYMPH % 15.3 % (24.0-44.0); MEAN CORPUSCULAR HEMOGLOBIN 29.5 pg (27.0-33.0); MEAN CORPUSCULAR HGB CONC 32.3 g/dl (32.0-36.5); MEAN CORPUSCULAR VOLUME 91.3 fl (80.0-96.0); MONO # 0.9 10^3/uL (0.0-0.8); NEUTROPHILS # 5.8 10^3/uL (1.8-7.7); NEUTROPHILS % 67.7 % (36.0-66.0); PLATELET COUNT, AUTOMATED 356 10^3/uL (150-450); RED BLOOD COUNT 3.32 10^6/uL (4.30-6.10); WHITE BLOOD COUNT 8.6 10^3/uL (4.0-10.0)
[2017-07-16 06:12] LABS: ALBUMIN 1.9 GM/DL (3.2-5.2); ALBUMIN/GLOBULIN RATIO 0.42 (1.00-1.93); ALKALINE PHOSPHATASE 94 U/L (45-117); ALT/SGPT 12 U/L (12-78); ANION GAP 8 MEQ/L (8-16); AST/SGOT 11 U/L (7-37); BILIRUBIN,TOTAL 0.3 MG/DL (0.2-1.0); BLOOD UREA NITROGEN 20 MG/DL (7-18); C REACTIVE PROTEIN QUANTITATIV 1.07 MG/DL (0.00-0.30); CARBON DIOXIDE LEVEL 21 MEQ/L (21-32); CHLORIDE LEVEL 106 MEQ/L (98-107); CREATININE FOR GFR 1.09 MG/DL (0.70-1.30); GLOMERULAR FILTRATION RATE > 60.0 (>49); GLUCOSE, FASTING 98 MG/DL (70-100); MAGNESIUM LEVEL 1.8 MG/DL (1.8-2.4); POTASSIUM SERUM 4.3 MEQ/L (3.5-5.1); SODIUM LEVEL 135 MEQ/L (136-145); TOTAL PROTEIN 6.4 GM/DL (6.4-8.2)
[2017-07-16] MEDS: CHOLESTYRAMINE 4 GM PWD PKT PO ×3 (07:30→17:30)
[2017-07-16] MEDS: FORMOTEROL FUMARATE 20 MCG/2 ML INHALATION SOLUTION (PERFOROMIST) INH ×2 (08:01→21:15)
[2017-07-16] MEDS: BUDESONIDE 0.5 MG/2 ML INHALATION SUSPENSION INH ×2 (08:01→21:15)
[2017-07-16] MEDS: AQUAPHOR **100GM** OINT TOP ×2 (09:00→23:09)
[2017-07-16] MEDS: LINEZOLID 600MG TABLET (ZYVOX) PO ×2 (10:20→23:05)
[2017-07-16] MEDS: ACETAMINOPHEN 325 MG/10.15 ML UDC PO ×2 (10:20→23:18)
[2017-07-16] MEDS: AMIODARONE 200 MG TAB (PACERONE) PO (10:20)
[2017-07-16] MEDS: HEPARIN SOD (PORCINE) 5000 UNITS/ML VIAL SQ ×2 (10:21→23:08)
[2017-07-16] MEDS: AMINO AC/ELECTROLYTE/DEX/CALC 1,000 ML IV (17:02)
[2017-07-16] MEDS: FAT EMULSION IV 20% 500 ML IV (17:02)
[2017-07-16] MEDS: PANTOPRAZOLE 40MG INJ (PROTONIX) (C9113) IV (22:00)
[2017-07-16] MEDS ORDERED: PANTOPRAZOLE 40MG TAB (PROTONIX) PO (22:30)
[2017-07-16] MEDS: PANTOPRAZOLE 40MG TAB (PROTONIX) PO (23:05)
[2017-07-17] MEDS: CHOLESTYRAMINE 4 GM PWD PKT PO (01:17)
[2017-07-17] MEDS: SLF 3 ML SYR IV ×3 (06:05→22:10)
[2017-07-17] MEDS: LevoFLOXacin 500 MG TABLET PO (06:34)
[2017-07-17] MEDS: BUDESONIDE 0.5 MG/2 ML INHALATION SUSPENSION INH ×2 (07:11→21:06)
[2017-07-17] MEDS: FORMOTEROL FUMARATE 20 MCG/2 ML INHALATION SOLUTION (PERFOROMIST) INH ×2 (07:11→21:07)
[2017-07-17 08:33] LABS: BASO # 0.1 10^3/uL (0.0-0.2); BASO % 0.6 % (0.0-1.0); EOS # 0.2 10^3/uL (0.0-0.50); EOS % 2.2 % (0.0-3.0); HEMATOCRIT 32.4 % (42.0-52.0); HEMOGLOBIN 10.5 g/dl (13.5-17.5); IMMATURE GRANULOCYTE % 0.7 % (0-3.0); LYMPH % 9.4 % (24.0-44.0); MEAN CORPUSCULAR HEMOGLOBIN 29.7 pg (27.0-33.0); MEAN CORPUSCULAR HGB CONC 32.4 g/dl (32.0-36.5); MEAN CORPUSCULAR VOLUME 91.5 fl (80.0-96.0); MONO % 9.2 % (0.0-5.0); NEUTROPHILS # 8.3 10^3/uL (1.8-7.7); NEUTROPHILS % 77.9 % (36.0-66.0); PLATELET COUNT, AUTOMATED 350 10^3/uL (150-450); RED BLOOD COUNT 3.54 10^6/uL (4.30-6.10); RED CELL DISTRIBUTION WIDTH 17.2 % (11.5-14.5); WHITE BLOOD COUNT 10.7 10^3/uL (4.0-10.0)
[2017-07-17 08:57] LABS: ALBUMIN 2.1 GM/DL (3.2-5.2); ALKALINE PHOSPHATASE 108 U/L (45-117); ALT/SGPT 10 U/L (12-78); ANION GAP 9 MEQ/L (8-16); AST/SGOT 11 U/L (7-37); BILIRUBIN,TOTAL 0.4 MG/DL (0.2-1.0); BLOOD UREA NITROGEN 15 MG/DL (7-18); CARBON DIOXIDE LEVEL 20 MEQ/L (21-32); CHLORIDE LEVEL 106 MEQ/L (98-107); CREATININE FOR GFR 1.06 MG/DL (0.70-1.30); GLOMERULAR FILTRATION RATE > 60.0 (>49); GLUCOSE, FASTING 97 MG/DL (70-100); POTASSIUM SERUM 4.3 MEQ/L (3.5-5.1); SODIUM LEVEL 135 MEQ/L (136-145); TOTAL PROTEIN 6.3 GM/DL (6.4-8.2)
[2017-07-17] MEDS: HEPARIN SOD (PORCINE) 5000 UNITS/ML VIAL SQ ×2 (09:00→22:09)
[2017-07-17] MEDS: AQUAPHOR **100GM** OINT TOP ×2 (09:00→22:10)
[2017-07-17] MEDS: AMIODARONE 200 MG TAB (PACERONE) PO (09:47)
[2017-07-17] MEDS: LINEZOLID 600MG TABLET (ZYVOX) PO ×2 (09:47→22:09)
[2017-07-17] MEDS ORDERED: SODIUM CHLORIDE 0.9% INJ 10 ML SYR IV (16:45)
[2017-07-17] MEDS: SODIUM CHLORIDE 0.9% INJ 10 ML SYR IV (18:42)
[2017-07-17] MEDS ORDERED: GLUCOSE 4 GM CHEW TABLET PO (19:00)
[2017-07-17] MEDS ORDERED: GLUCAGON FOR INJ 1 MG VIAL (J1610) SC (19:00)
[2017-07-17] MEDS ORDERED: DEXTROSE 50% 50 ML SYRINGE IV (19:00)
[2017-07-17] MEDS: HumaLOG INSULIN (NovoLOG) PER UNIT SC (21:00)
[2017-07-17] MEDS: PANTOPRAZOLE 40MG TAB (PROTONIX) PO (22:09)
[2017-07-17] MEDS: FAT EMULSION IV 20% 500 ML IV (22:11)
[2017-07-17] MEDS: AMINO AC/ELECTROLYTE/DEX/CALC 2,000 ML IV (22:11)
[2017-07-17 22:15] LABS: BEDSIDE GLUCOSE 116 MG/DL (80-115)
[2017-07-18] MEDS: SODIUM CHLORIDE 0.9% INJ 10 ML SYR IV ×2 (05:45→18:14)
[2017-07-18] MEDS: LevoFLOXacin 500 MG TABLET PO (05:45)
[2017-07-18 06:08] LABS: BASO # 0.1 10^3/uL (0.0-0.2); BASO % 0.7 % (0.0-1.0); EOS # 0.3 10^3/uL (0.0-0.50); EOS % 2.8 % (0.0-3.0); HEMATOCRIT 29.7 % (42.0-52.0); HEMOGLOBIN 9.6 g/dl (13.5-17.5); IMMATURE GRANULOCYTE % 0.8 % (0-3.0); LYMPH # 1.2 10^3/uL (1.5-4.5); LYMPH % 11.7 % (24.0-44.0); MEAN CORPUSCULAR HEMOGLOBIN 29.7 pg (27.0-33.0); MEAN CORPUSCULAR HGB CONC 32.3 g/dl (32.0-36.5); MONO # 0.9 10^3/uL (0.0-0.8); MONO % 9.4 % (0.0-5.0); NEUTROPHILS # 7.4 10^3/uL (1.8-7.7); NEUTROPHILS % 74.6 % (36.0-66.0); PLATELET COUNT, AUTOMATED 358 10^3/uL (150-450); RED BLOOD COUNT 3.23 10^6/uL (4.30-6.10); RED CELL DISTRIBUTION WIDTH 17.2 % (11.5-14.5); WHITE BLOOD COUNT 9.9 10^3/uL (4.0-10.0)
[2017-07-18 06:45] LABS: ALBUMIN 2.1 GM/DL (3.2-5.2); ALBUMIN/GLOBULIN RATIO 0.51 (1.00-1.93); ALKALINE PHOSPHATASE 96 U/L (45-117); ALT/SGPT 10 U/L (12-78); ANION GAP 8 MEQ/L (8-16); AST/SGOT 10 U/L (7-37); BILIRUBIN,TOTAL 0.3 MG/DL (0.2-1.0); BLOOD UREA NITROGEN 18 MG/DL (7-18); CARBON DIOXIDE LEVEL 21 MEQ/L (21-32); CHLORIDE LEVEL 106 MEQ/L (98-107); CREATININE FOR GFR 1.13 MG/DL (0.70-1.30); GLOMERULAR FILTRATION RATE > 60.0 (>49); GLUCOSE, FASTING 93 MG/DL (70-100); POTASSIUM SERUM 4.4 MEQ/L (3.5-5.1); SODIUM LEVEL 135 MEQ/L (136-145); TOTAL PROTEIN 6.2 GM/DL (6.4-8.2)
[2017-07-18] MEDS: HumaLOG INSULIN (NovoLOG) PER UNIT SC ×4 (07:30→21:00)
[2017-07-18] MEDS: BUDESONIDE 0.5 MG/2 ML INHALATION SUSPENSION INH (08:17)
[2017-07-18] MEDS: FORMOTEROL FUMARATE 20 MCG/2 ML INHALATION SOLUTION (PERFOROMIST) INH (08:17)
[2017-07-18] MEDS: AMIODARONE 200 MG TAB (PACERONE) PO (10:01)
[2017-07-18] MEDS: HEPARIN SOD (PORCINE) 5000 UNITS/ML VIAL SQ ×2 (10:01→23:55)
[2017-07-18] MEDS: LINEZOLID 600MG TABLET (ZYVOX) PO (10:01)
[2017-07-18 12:22] LABS: BEDSIDE GLUCOSE 108 MG/DL (80-115)
[2017-07-18] MEDS: AQUAPHOR **100GM** OINT TOP ×2 (13:15→23:56)
[2017-07-18 17:10] LABS: BEDSIDE GLUCOSE 121 MG/DL (80-115)
[2017-07-18] MEDS: AMINO AC/ELECTROLYTE/DEX/CALC 2,000 ML IV (18:15)
[2017-07-18] MEDS: FAT EMULSION IV 20% 500 ML IV (18:15)
[2017-07-18 23:34] LABS: BEDSIDE GLUCOSE 112 MG/DL (80-115)
[2017-07-18] MEDS: PANTOPRAZOLE 40MG TAB (PROTONIX) PO (23:56)
[2017-07-19] MEDS: LevoFLOXacin 500 MG TABLET PO (05:27)
[2017-07-19] MEDS: SODIUM CHLORIDE 0.9% INJ 10 ML SYR IV ×2 (05:28→17:38)
[2017-07-19 06:24] LABS: BASO # 0.1 10^3/uL (0.0-0.2); BASO % 0.8 % (0.0-1.0); EOS # 0.3 10^3/uL (0.0-0.50); EOS % 3.5 % (0.0-3.0); HEMATOCRIT 29.4 % (42.0-52.0); HEMOGLOBIN 9.5 g/dl (13.5-17.5); IMMATURE GRANULOCYTE % 1.1 % (0-3.0); LYMPH # 1.2 10^3/uL (1.5-4.5); MEAN CORPUSCULAR HEMOGLOBIN 29.7 pg (27.0-33.0); MEAN CORPUSCULAR HGB CONC 32.3 g/dl (32.0-36.5); MEAN CORPUSCULAR VOLUME 91.9 fl (80.0-96.0); MONO # 0.8 10^3/uL (0.0-0.8); MONO % 8.9 % (0.0-5.0); NEUTROPHILS # 6.3 10^3/uL (1.8-7.7); NEUTROPHILS % 71.7 % (36.0-66.0); PLATELET COUNT, AUTOMATED 353 10^3/uL (150-450); RED CELL DISTRIBUTION WIDTH 17.5 % (11.5-14.5); WHITE BLOOD COUNT 8.8 10^3/uL (4.0-10.0)
[2017-07-19 06:42] LABS: ALBUMIN/GLOBULIN RATIO 0.51 (1.00-1.93); ALKALINE PHOSPHATASE 93 U/L (45-117); ALT/SGPT 12 U/L (12-78); ANION GAP 8 MEQ/L (8-16); AST/SGOT 9 U/L (7-37); BILIRUBIN,TOTAL 0.3 MG/DL (0.2-1.0); BLOOD UREA NITROGEN 22 MG/DL (7-18); CALCIUM LEVEL 8.2 MG/DL (8.8-10.2); CARBON DIOXIDE LEVEL 23 MEQ/L (21-32); CHLORIDE LEVEL 105 MEQ/L (98-107); CREATININE FOR GFR 1.05 MG/DL (0.70-1.30); GLOMERULAR FILTRATION RATE > 60.0 (>49); GLUCOSE, FASTING 86 MG/DL (70-100); POTASSIUM SERUM 4.2 MEQ/L (3.5-5.1); SODIUM LEVEL 136 MEQ/L (136-145); TOTAL PROTEIN 5.9 GM/DL (6.4-8.2)
[2017-07-19] MEDS: BUDESONIDE 0.5 MG/2 ML INHALATION SUSPENSION INH ×2 (07:23→21:26)
[2017-07-19] MEDS: FORMOTEROL FUMARATE 20 MCG/2 ML INHALATION SOLUTION (PERFOROMIST) INH ×2 (07:23→21:25)
[2017-07-19] MEDS: HumaLOG INSULIN (NovoLOG) PER UNIT SC ×4 (07:30→21:38)
[2017-07-19] MEDS: CHOLESTYRAMINE 4 GM PWD PKT PO ×2 (09:03→21:38)
[2017-07-19] MEDS: HEPARIN SOD (PORCINE) 5000 UNITS/ML VIAL SQ ×2 (09:03→21:38)
[2017-07-19] MEDS: AQUAPHOR **100GM** OINT TOP ×2 (09:03→21:38)
[2017-07-19] MEDS: AMIODARONE 200 MG TAB (PACERONE) PO (09:03)
[2017-07-19 12:02] LABS: BEDSIDE GLUCOSE 112 MG/DL (80-115)
[2017-07-19 16:47] LABS: BEDSIDE GLUCOSE 124 MG/DL (80-115)
[2017-07-19] MEDS: MULTIVITAMIN -ADULT INJECTION 10 ML, CR/CU/SE/MN/ZN INJ 1 ML in AMINO AC/ELECTROLYTE/DE... IV (17:39)
[2017-07-19] MEDS: FAT EMULSION IV 20% 500 ML IV (17:39)
[2017-07-19 20:49] LABS: BEDSIDE GLUCOSE 125 MG/DL (80-115)
[2017-07-19] MEDS: PANTOPRAZOLE 40MG TAB (PROTONIX) PO (21:37)
[2017-07-19] MEDS: ACETAMINOPHEN 325 MG/10.15 ML UDC PO (21:43)
[2017-07-20] MEDS: SODIUM CHLORIDE 0.9% INJ 10 ML SYR IV ×2 (05:20→17:46)
[2017-07-20] MEDS: LevoFLOXacin 500 MG TABLET PO (05:20)
[2017-07-20 05:50] LABS: BEDSIDE GLUCOSE 110 MG/DL (80-115)
[2017-07-20 06:04] LABS: ALBUMIN 2.1 GM/DL (3.2-5.2); ALBUMIN/GLOBULIN RATIO 0.53 (1.00-1.93); ALKALINE PHOSPHATASE 101 U/L (45-117); ALT/SGPT 11 U/L (12-78); ANION GAP 8 MEQ/L (8-16); AST/SGOT 10 U/L (7-37); BILIRUBIN,TOTAL 0.4 MG/DL (0.2-1.0); BLOOD UREA NITROGEN 22 MG/DL (7-18); CARBON DIOXIDE LEVEL 24 MEQ/L (21-32); CHLORIDE LEVEL 104 MEQ/L (98-107); GLOMERULAR FILTRATION RATE > 60.0 (>49); GLUCOSE, FASTING 99 MG/DL (70-100); SODIUM LEVEL 136 MEQ/L (136-145); TOTAL PROTEIN 6.1 GM/DL (6.4-8.2)
[2017-07-20] MEDS: BUDESONIDE 0.5 MG/2 ML INHALATION SUSPENSION INH ×2 (07:09→20:00)
[2017-07-20] MEDS: FORMOTEROL FUMARATE 20 MCG/2 ML INHALATION SOLUTION (PERFOROMIST) INH ×2 (07:09→20:00)
[2017-07-20] MEDS: HumaLOG INSULIN (NovoLOG) PER UNIT SC ×4 (07:26→19:54)
[2017-07-20] MEDS: HEPARIN SOD (PORCINE) 5000 UNITS/ML VIAL SQ ×2 (09:54→21:27)
[2017-07-20] MEDS: AMIODARONE 200 MG TAB (PACERONE) PO (09:54)
[2017-07-20] MEDS: AQUAPHOR **100GM** OINT TOP ×2 (09:55→21:27)
[2017-07-20] MEDS: CHOLESTYRAMINE 4 GM PWD PKT PO ×2 (09:55→21:26)
[2017-07-20 12:03] LABS: BEDSIDE GLUCOSE 119 MG/DL (80-115)
[2017-07-20] MEDS: ACETAMINOPHEN 325 MG/10.15 ML UDC PO (13:58)
[2017-07-20 17:02] LABS: BEDSIDE GLUCOSE 147 MG/DL (80-115)
[2017-07-20] MEDS: AMINO AC/ELECTROLYTE/DEX/CALC 2,000 ML IV (18:19)
[2017-07-20] MEDS: FAT EMULSION IV 20% 500 ML IV (18:19)
[2017-07-20 19:46] LABS: BEDSIDE GLUCOSE 104 MG/DL (80-115)
[2017-07-20] MEDS: PANTOPRAZOLE 40MG TAB (PROTONIX) PO (21:27)
[2017-07-21] MEDS: LevoFLOXacin 500 MG TABLET PO (05:25)
[2017-07-21] MEDS: SODIUM CHLORIDE 0.9% INJ 10 ML SYR IV ×2 (05:26→18:08)
[2017-07-21 06:09] LABS: ALBUMIN/GLOBULIN RATIO 0.53 (1.00-1.93); ALKALINE PHOSPHATASE 94 U/L (45-117); ALT/SGPT 11 U/L (12-78); ANION GAP 5 MEQ/L (8-16); AST/SGOT 11 U/L (7-37); BILIRUBIN,TOTAL 0.3 MG/DL (0.2-1.0); BLOOD UREA NITROGEN 20 MG/DL (7-18); CALCIUM LEVEL 8.3 MG/DL (8.8-10.2); CARBON DIOXIDE LEVEL 25 MEQ/L (21-32); CHLORIDE LEVEL 105 MEQ/L (98-107); CREATININE FOR GFR 1.01 MG/DL (0.70-1.30); GLOMERULAR FILTRATION RATE > 60.0 (>49); GLUCOSE, FASTING 92 MG/DL (70-100); POTASSIUM SERUM 4.4 MEQ/L (3.5-5.1); SODIUM LEVEL 135 MEQ/L (136-145); TOTAL PROTEIN 5.8 GM/DL (6.4-8.2)
[2017-07-21] MEDS: FORMOTEROL FUMARATE 20 MCG/2 ML INHALATION SOLUTION (PERFOROMIST) INH ×2 (07:09→20:04)
[2017-07-21] MEDS: BUDESONIDE 0.5 MG/2 ML INHALATION SUSPENSION INH ×2 (07:09→20:04)
[2017-07-21] MEDS: HumaLOG INSULIN (NovoLOG) PER UNIT SC ×4 (07:30→20:41)
[2017-07-21] MEDS: HEPARIN SOD (PORCINE) 5000 UNITS/ML VIAL SQ ×2 (07:38→22:16)
[2017-07-21] MEDS: ACETAMINOPHEN 325 MG/10.15 ML UDC PO (07:39)
[2017-07-21] MEDS: CHOLESTYRAMINE 4 GM PWD PKT PO ×2 (07:39→22:16)
[2017-07-21] MEDS: AMIODARONE 200 MG TAB (PACERONE) PO (07:40)
[2017-07-21] MEDS: AQUAPHOR **100GM** OINT TOP ×2 (07:41→22:17)
[2017-07-21 11:42] LABS: BEDSIDE GLUCOSE 112 MG/DL (80-115)
[2017-07-21] MEDS: DARBEPOETIN 100 MCG/0.5 ML *NON-DIALYSIS* SYRINGE (J0881) SQ (12:12)
[2017-07-21 17:54] LABS: BEDSIDE GLUCOSE 115 MG/DL (80-115)
[2017-07-21] MEDS: FAT EMULSION IV 20% 500 ML IV (18:07)
[2017-07-21] MEDS: AMINO AC/ELECTROLYTE/DEX/CALC 2,000 ML IV (18:07)
[2017-07-21 20:14] LABS: BEDSIDE GLUCOSE 110 MG/DL (80-115)
[2017-07-21] MEDS ORDERED: HEPARIN SOD (PORCINE) 5000 UNITS/ML VIAL As Ordered (22:00)
[2017-07-21] MEDS: PANTOPRAZOLE 40MG TAB (PROTONIX) PO (22:16)
[2017-07-22] MEDS: LevoFLOXacin 500 MG TABLET PO (05:04)
[2017-07-22] MEDS: SODIUM CHLORIDE 0.9% INJ 10 ML SYR IV ×2 (05:04→17:17)
[2017-07-22 05:45] LABS: ALBUMIN 1.9 GM/DL (3.2-5.2); ALKALINE PHOSPHATASE 98 U/L (45-117); ALT/SGPT 11 U/L (12-78); ANION GAP 6 MEQ/L (8-16); AST/SGOT 16 U/L (7-37); BILIRUBIN,TOTAL 0.2 MG/DL (0.2-1.0); BLOOD UREA NITROGEN 17 MG/DL (7-18); CALCIUM LEVEL 8.1 MG/DL (8.8-10.2); CARBON DIOXIDE LEVEL 25 MEQ/L (21-32); CHLORIDE LEVEL 107 MEQ/L (98-107); CREATININE FOR GFR 0.96 MG/DL (0.70-1.30); GLOMERULAR FILTRATION RATE > 60.0 (>49); GLUCOSE, FASTING 94 MG/DL (70-100); POTASSIUM SERUM 4.3 MEQ/L (3.5-5.1); SODIUM LEVEL 138 MEQ/L (136-145); TOTAL PROTEIN 5.7 GM/DL (6.4-8.2)
[2017-07-22] MEDS: BUDESONIDE 0.5 MG/2 ML INHALATION SUSPENSION INH ×2 (07:16→21:00)
[2017-07-22] MEDS: FORMOTEROL FUMARATE 20 MCG/2 ML INHALATION SOLUTION (PERFOROMIST) INH ×2 (07:16→21:00)
[2017-07-22] MEDS: HumaLOG INSULIN (NovoLOG) PER UNIT SC ×4 (08:06→21:00)
[2017-07-22] MEDS: HEPARIN SOD (PORCINE) 5000 UNITS/ML VIAL SQ ×2 (09:10→21:13)
[2017-07-22] MEDS: AQUAPHOR **100GM** OINT TOP ×2 (09:10→21:13)
[2017-07-22] MEDS: AMIODARONE 200 MG TAB (PACERONE) PO (09:10)
[2017-07-22] MEDS: CHOLESTYRAMINE 4 GM PWD PKT PO ×2 (09:11→21:13)
[2017-07-22 12:05] LABS: BEDSIDE GLUCOSE 117 MG/DL (80-115)
[2017-07-22 16:54] LABS: BEDSIDE GLUCOSE 113 MG/DL (80-115)
[2017-07-22] MEDS: MULTIVITAMIN -ADULT INJECTION 10 ML, CR/CU/SE/MN/ZN INJ 1 ML in AMINO AC/ELECTROLYTE/DE... IV (17:18)
[2017-07-22] MEDS: FAT EMULSION IV 20% 500 ML IV (17:18)
[2017-07-22 19:33] LABS: BEDSIDE GLUCOSE 124 MG/DL (80-115)
[2017-07-22] MEDS: PANTOPRAZOLE 40MG TAB (PROTONIX) PO (21:12)
[2017-07-23] MEDS: SODIUM CHLORIDE 0.9% INJ 10 ML SYR IV ×2 (05:44→17:37)
[2017-07-23 06:30] LABS: BEDSIDE GLUCOSE 129 MG/DL (80-115)
[2017-07-23] MEDS: HEPARIN SOD (PORCINE) 5000 UNITS/ML VIAL SQ ×3 (08:33→21:53)
[2017-07-23] MEDS: HumaLOG INSULIN (NovoLOG) PER UNIT SC ×4 (08:34→21:00)
[2017-07-23] MEDS: AQUAPHOR **100GM** OINT TOP ×2 (08:34→21:53)
[2017-07-23] MEDS: AMIODARONE 200 MG TAB (PACERONE) PO (08:34)
[2017-07-23] MEDS: CHOLESTYRAMINE 4 GM PWD PKT PO ×2 (08:34→21:53)
[2017-07-23] MEDS: BUDESONIDE 0.5 MG/2 ML INHALATION SUSPENSION INH ×2 (10:50→19:23)
[2017-07-23] MEDS: FORMOTEROL FUMARATE 20 MCG/2 ML INHALATION SOLUTION (PERFOROMIST) INH ×2 (10:50→19:23)
[2017-07-23 11:57] LABS: BEDSIDE GLUCOSE 122 MG/DL (80-115)
[2017-07-23] MEDS: LevoFLOXacin 500 MG TABLET PO (15:49)
[2017-07-23 17:00] LABS: BEDSIDE GLUCOSE 118 MG/DL (80-115)
[2017-07-23] MEDS: AMINO AC/ELECTROLYTE/DEX/CALC 2,000 ML IV (17:37)
[2017-07-23] MEDS: FAT EMULSION IV 20% 500 ML IV (17:38)
[2017-07-23 19:58] LABS: BEDSIDE GLUCOSE 111 MG/DL (80-115)
[2017-07-23] MEDS: PANTOPRAZOLE 40MG TAB (PROTONIX) PO (21:53)
[2017-07-24] MEDS: SODIUM CHLORIDE 0.9% INJ 10 ML SYR IV ×2 (05:41→18:00)
[2017-07-24] MEDS: LevoFLOXacin 500 MG TABLET PO (05:42)
[2017-07-24 05:48] LABS: BEDSIDE GLUCOSE 109 MG/DL (80-115)
[2017-07-24] MEDS: BUDESONIDE 0.5 MG/2 ML INHALATION SUSPENSION INH ×3 (07:04→21:35)
[2017-07-24] MEDS: FORMOTEROL FUMARATE 20 MCG/2 ML INHALATION SOLUTION (PERFOROMIST) INH ×3 (07:04→21:35)
[2017-07-24] MEDS: AMIODARONE 200 MG TAB (PACERONE) PO (08:59)
[2017-07-24] MEDS: HumaLOG INSULIN (NovoLOG) PER UNIT SC ×4 (08:59→20:25)
[2017-07-24] MEDS: CHOLESTYRAMINE 4 GM PWD PKT PO ×2 (09:00→20:40)
[2017-07-24] MEDS: AQUAPHOR **100GM** OINT TOP ×2 (09:00→20:41)
[2017-07-24] MEDS: HEPARIN SOD (PORCINE) 5000 UNITS/ML VIAL SQ ×2 (09:10→20:40)
[2017-07-24] MEDS ORDERED: PILL CRUSHER/CUTTER 1 EACH XX (09:15)
[2017-07-24 11:13] LABS: BEDSIDE GLUCOSE 110 MG/DL (80-115)
[2017-07-24] MEDS: MULTIVITAMIN -ADULT INJECTION 10 ML, CR/CU/SE/MN/ZN INJ 1 ML in AMINO AC/ELECTROLYTE/DE... IV (18:00)
[2017-07-24] MEDS: FAT EMULSION IV 20% 500 ML IV (18:00)
[2017-07-24] MEDS: PANTOPRAZOLE 40MG TAB (PROTONIX) PO (20:40)
[2017-07-25] MEDS: SODIUM CHLORIDE 0.9% INJ 10 ML SYR IV ×2 (05:50→18:48)
[2017-07-25] MEDS: HumaLOG INSULIN (NovoLOG) PER UNIT SC ×4 (07:30→21:00)
[2017-07-25] MEDS: BUDESONIDE 0.5 MG/2 ML INHALATION SUSPENSION INH ×2 (08:19→19:47)
[2017-07-25] MEDS: FORMOTEROL FUMARATE 20 MCG/2 ML INHALATION SOLUTION (PERFOROMIST) INH ×2 (08:19→19:47)
[2017-07-25] MEDS: CHOLESTYRAMINE 4 GM PWD PKT PO ×2 (08:22→21:43)
[2017-07-25] MEDS: AMIODARONE 200 MG TAB (PACERONE) PO (08:22)
[2017-07-25] MEDS: HEPARIN SOD (PORCINE) 5000 UNITS/ML VIAL SQ ×2 (08:23→21:43)
[2017-07-25] MEDS: AQUAPHOR **100GM** OINT TOP ×2 (08:23→21:43)
[2017-07-25 10:13] LABS: BEDSIDE GLUCOSE 100 MG/DL (80-115)
[2017-07-25 11:39] LABS: BEDSIDE GLUCOSE 101 MG/DL (80-115)
[2017-07-25 11:39] LABS: BEDSIDE GLUCOSE 130 MG/DL (80-115)
[2017-07-25] MEDS ORDERED: PERCOCET 5MG/325MG TAB As Ordered (16:16)
[2017-07-25 16:59] LABS: BEDSIDE GLUCOSE 110 MG/DL (80-115)
[2017-07-25] MEDS: AMINO AC/ELECTROLYTE/DEX/CALC 2,000 ML IV (18:47)
[2017-07-25] MEDS: FAT EMULSION IV 20% 500 ML IV (18:48)
[2017-07-25] MEDS: PANTOPRAZOLE 40MG TAB (PROTONIX) PO (21:43)
[2017-07-25] MEDS: ACETAMINOPHEN 325 MG/10.15 ML UDC PO (21:44)
[2017-07-25 21:46] LABS: BEDSIDE GLUCOSE 121 MG/DL (80-115)
[2017-07-26 06:14] LABS: HEMATOCRIT 32.7 % (42.0-52.0); HEMOGLOBIN 10.7 g/dl (13.5-17.5); MEAN CORPUSCULAR HEMOGLOBIN 30.2 pg (27.0-33.0); MEAN CORPUSCULAR HGB CONC 32.7 g/dl (32.0-36.5); MEAN CORPUSCULAR VOLUME 92.4 fl (80.0-96.0); PLATELET COUNT, AUTOMATED 354 10^3/uL (150-450); RED BLOOD COUNT 3.54 10^6/uL (4.30-6.10); RED CELL DISTRIBUTION WIDTH 17.6 % (11.5-14.5); WHITE BLOOD COUNT 7.7 10^3/uL (4.0-10.0)
[2017-07-26 06:26] LABS: ALBUMIN 2.1 GM/DL (3.2-5.2); ALKALINE PHOSPHATASE 99 U/L (45-117); ALT/SGPT 14 U/L (12-78); ANION GAP 6 MEQ/L (8-16); AST/SGOT 9 U/L (7-37); BILIRUBIN,TOTAL 0.3 MG/DL (0.2-1.0); BLOOD UREA NITROGEN 23 MG/DL (7-18); CALCIUM LEVEL 8.4 MG/DL (8.8-10.2); CARBON DIOXIDE LEVEL 26 MEQ/L (21-32); CHLORIDE LEVEL 103 MEQ/L (98-107); CREATININE FOR GFR 1.07 MG/DL (0.70-1.30); GLOMERULAR FILTRATION RATE > 60.0 (>49); GLUCOSE, FASTING 103 MG/DL (70-100); POTASSIUM SERUM 4.6 MEQ/L (3.5-5.1); SODIUM LEVEL 135 MEQ/L (136-145); TOTAL PROTEIN 6.3 GM/DL (6.4-8.2)
[2017-07-26] MEDS: SODIUM CHLORIDE 0.9% INJ 10 ML SYR IV ×2 (06:37→17:13)
[2017-07-26] MEDS: AMIODARONE 200 MG TAB (PACERONE) PO (08:04)
[2017-07-26] MEDS: HumaLOG INSULIN (NovoLOG) PER UNIT SC ×4 (08:04→21:00)
[2017-07-26] MEDS: HEPARIN SOD (PORCINE) 5000 UNITS/ML VIAL SQ ×3 (08:04→21:46)
[2017-07-26] MEDS: CHOLESTYRAMINE 4 GM PWD PKT PO ×3 (08:05→21:48)
[2017-07-26] MEDS: AQUAPHOR **100GM** OINT TOP ×3 (08:05→21:47)
[2017-07-26 11:51] LABS: BEDSIDE GLUCOSE 102 MG/DL (80-115)
[2017-07-26] MEDS: ACETAMINOPHEN 325 MG/10.15 ML UDC PO (13:43)
[2017-07-26 17:15] LABS: BEDSIDE GLUCOSE 85 MG/DL (80-115)
[2017-07-26] MEDS ORDERED: MULTIVITAMIN -ADULT INJECTION 10 ML, CR/CU/SE/MN/ZN INJ 1 ML in AMINO AC/ELECTROLYTE/DE... IV (18:00)
[2017-07-26] MEDS ORDERED: FAT EMULSION IV 20% 500 ML IV (18:00)
[2017-07-26] MEDS: BUDESONIDE 0.5 MG/2 ML INHALATION SUSPENSION INH (19:51)
[2017-07-26] MEDS: FORMOTEROL FUMARATE 20 MCG/2 ML INHALATION SOLUTION (PERFOROMIST) INH (19:51)
[2017-07-26 20:38] LABS: BEDSIDE GLUCOSE 107 MG/DL (80-115)
[2017-07-26] MEDS: PANTOPRAZOLE 40MG TAB (PROTONIX) PO ×2 (21:47→22:00)
[2017-07-26 23:44] LABS: BEDSIDE GLUCOSE 107 MG/DL (80-115)
[2017-07-27] MEDS: SODIUM CHLORIDE 0.9% INJ 10 ML SYR IV ×2 (04:01→17:25)
[2017-07-27 05:44] LABS: BEDSIDE GLUCOSE 117 MG/DL (80-115)
[2017-07-27] MEDS: BUDESONIDE 0.5 MG/2 ML INHALATION SUSPENSION INH ×2 (07:14→20:25)
[2017-07-27] MEDS: FORMOTEROL FUMARATE 20 MCG/2 ML INHALATION SOLUTION (PERFOROMIST) INH ×2 (07:14→20:25)
[2017-07-27] MEDS: AMIODARONE 200 MG TAB (PACERONE) PO (08:58)
[2017-07-27] MEDS: HumaLOG INSULIN (NovoLOG) PER UNIT SC ×4 (08:58→20:21)
[2017-07-27] MEDS: CHOLESTYRAMINE 4 GM PWD PKT PO ×2 (08:59→20:21)
[2017-07-27] MEDS: HEPARIN SOD (PORCINE) 5000 UNITS/ML VIAL SQ ×2 (09:00→20:20)
[2017-07-27] MEDS: AQUAPHOR **100GM** OINT TOP ×2 (09:00→20:20)
[2017-07-27 11:39] LABS: BEDSIDE GLUCOSE 93 MG/DL (80-115)
[2017-07-27 16:57] LABS: BEDSIDE GLUCOSE 97 MG/DL (80-115)
[2017-07-27] MEDS ORDERED: AMINO AC/ELECTROLYTE/DEX/CALC 2,000 ML IV (18:00)
[2017-07-27] MEDS ORDERED: FAT EMULSION IV 20% 500 ML IV (18:00)
[2017-07-27] MEDS: FAT EMULSION IV 20% 500 ML IV (18:15)
[2017-07-27] MEDS: AMINO AC/ELECTROLYTE/DEX/CALC 1,000 ML IV (18:15)
[2017-07-27] MEDS: PANTOPRAZOLE 40MG TAB (PROTONIX) PO (20:21)
[2017-07-27 20:35] LABS: BEDSIDE GLUCOSE 113 MG/DL (80-115)
[2017-07-28] MEDS: BUDESONIDE 0.5 MG/2 ML INHALATION SUSPENSION INH ×2 (07:09→19:56)
[2017-07-28] MEDS: FORMOTEROL FUMARATE 20 MCG/2 ML INHALATION SOLUTION (PERFOROMIST) INH ×2 (07:09→19:56)
[2017-07-28] MEDS: HumaLOG INSULIN (NovoLOG) PER UNIT SC ×4 (07:30→21:00)
[2017-07-28 08:06] LABS: BEDSIDE GLUCOSE 103 MG/DL (80-115)
[2017-07-28] MEDS: CHOLESTYRAMINE 4 GM PWD PKT PO ×2 (09:52→21:40)
[2017-07-28] MEDS: HEPARIN SOD (PORCINE) 5000 UNITS/ML VIAL SQ ×2 (09:53→21:40)
[2017-07-28] MEDS: AQUAPHOR **100GM** OINT TOP ×2 (09:53→21:40)
[2017-07-28] MEDS: ACETAMINOPHEN 325 MG/10.15 ML UDC PO (09:53)
[2017-07-28] MEDS: AMIODARONE 200 MG TAB (PACERONE) PO (09:53)
[2017-07-28 11:49] LABS: BEDSIDE GLUCOSE 93 MG/DL (80-115)
[2017-07-28] MEDS: DARBEPOETIN 100 MCG/0.5 ML *NON-DIALYSIS* SYRINGE (J0881) SQ (12:00)
[2017-07-28] MEDS: AMINO AC/ELECTROLYTE/DEX/CALC 1,000 ML IV (14:29)
[2017-07-28 17:05] LABS: BEDSIDE GLUCOSE 86 MG/DL (80-115)
[2017-07-28] MEDS: FAT EMULSION IV 20% 500 ML IV (18:00)
[2017-07-28 19:51] LABS: BEDSIDE GLUCOSE 95 MG/DL (80-115)
[2017-07-28] MEDS: PANTOPRAZOLE 40MG TAB (PROTONIX) PO (21:40)
[2017-07-29] MEDS: HumaLOG INSULIN (NovoLOG) PER UNIT SC ×4 (07:30→21:32)
[2017-07-29] MEDS: BUDESONIDE 0.5 MG/2 ML INHALATION SUSPENSION INH ×2 (08:00→20:00)
[2017-07-29] MEDS: FORMOTEROL FUMARATE 20 MCG/2 ML INHALATION SOLUTION (PERFOROMIST) INH ×2 (08:00→20:00)
[2017-07-29] MEDS: ACETAMINOPHEN 325 MG/10.15 ML UDC PO (08:41)
[2017-07-29] MEDS: AMIODARONE 200 MG TAB (PACERONE) PO (08:41)
[2017-07-29] MEDS: CHOLESTYRAMINE 4 GM PWD PKT PO ×2 (08:41→21:31)
[2017-07-29] MEDS: AMINO AC/ELECTROLYTE/DEX/CALC 1,000 ML IV ×2 (08:42→11:13)
[2017-07-29] MEDS: AQUAPHOR **100GM** OINT TOP ×2 (08:42→21:31)
[2017-07-29] MEDS: HEPARIN SOD (PORCINE) 5000 UNITS/ML VIAL SQ ×2 (08:42→21:31)
[2017-07-29 09:16] LABS: BEDSIDE GLUCOSE 111 MG/DL (80-115)
[2017-07-29 11:37] LABS: BEDSIDE GLUCOSE 87 MG/DL (80-115)
[2017-07-29] MEDS ORDERED: SODIUM CHLORIDE 0.9% INJ 10 ML SYR IV (16:00)
[2017-07-29 18:14] LABS: BEDSIDE GLUCOSE 130 MG/DL (80-115)
[2017-07-29] MEDS: SODIUM CHLORIDE 0.9% INJ 10 ML SYR IV (18:25)
[2017-07-29] MEDS: FAT EMULSION IV 20% 500 ML IV (18:25)
[2017-07-29 21:29] LABS: BEDSIDE GLUCOSE 88 MG/DL (80-115)
[2017-07-29] MEDS: PANTOPRAZOLE 40MG TAB (PROTONIX) PO (21:31)
[2017-07-30] MEDS: SODIUM CHLORIDE 0.9% INJ 10 ML SYR IV (04:50)
[2017-07-30 05:28] LABS: BEDSIDE GLUCOSE 91 MG/DL (80-115)
[2017-07-30] MEDS: AMINO AC/ELECTROLYTE/DEX/CALC 1,000 ML IV (06:00)
[2017-07-30] MEDS: HumaLOG INSULIN (NovoLOG) PER UNIT SC (07:21)
[2017-07-30] MEDS: CHOLESTYRAMINE 4 GM PWD PKT PO (07:44)
[2017-07-30] MEDS: HEPARIN SOD (PORCINE) 5000 UNITS/ML VIAL SQ (07:44)
[2017-07-30] MEDS: AMIODARONE 200 MG TAB (PACERONE) PO (07:45)
[2017-07-30] MEDS: AQUAPHOR **100GM** OINT TOP (07:45)
== END 2017-07-30 09:21 | DRG 221 ==
LOC: M PCU 06-30 16:50 → M MSPAV 07-08 10:45 → M ICU 07-09 07:53 → M PCU 07-11 13:54 → M ED 03:25 → M MS5PR 07-18 20:49 → M PCU 06-03 16:06 → M ICU 06-03 20:35 → M ED INP 12:16 → M MS5PR 14:20
PROC: 0DB80ZZ Excision of Small Intestine, Open Approach (ICD-10-PCS; principal; 2017-06-03 18:27)
PROC: 30233N1 Transfusion of Nonautologous Red Blood Cells into Peripheral Vein, Percutaneous Approach (ICD-10-PCS; 2017-06-03 18:27)
PROC: 3E0336Z Introduction of Nutritional Substance into Peripheral Vein, Percutaneous Approach (ICD-10-PCS; 2017-06-03 19:11)
PROC: 0DB80ZZ Excision of Small Intestine, Open Approach (ICD-10-PCS; 2017-06-03 19:11)
PROC: 0DBN0ZZ Excision of Sigmoid Colon, Open Approach (ICD-10-PCS; 2017-06-03 19:11)
PROC: 0D1N0J4 Bypass Sigmoid Colon to Cutaneous with Synthetic Substitute, Open Approach (ICD-10-PCS; 2017-06-03 19:11)
PROC: 02HV33Z Insertion of Infusion Device into Superior Vena Cava, Percutaneous Approach (ICD-10-PCS; 2017-06-03 19:11)
PROC: 5A1955Z Respiratory Ventilation, Greater than 96 Consecutive Hours (ICD-10-PCS; 2017-06-03 19:11)
PROC: 5A1D70Z Performance of Urinary Filtration, Intermittent, Less than 6 Hours Per Day (ICD-10-PCS; 2017-06-03 19:11)
PROC: 0C9M8ZZ Drainage of Pharynx, Via Natural or Artificial Opening Endoscopic (ICD-10-PCS; 2017-06-03 19:11)
PROC: 0B978ZZ Drainage of Left Main Bronchus, Via Natural or Artificial Opening Endoscopic (ICD-10-PCS; 2017-06-03 19:11)
PROC: 0B978ZZ Drainage of Left Main Bronchus, Via Natural or Artificial Opening Endoscopic (ICD-10-PCS; 2017-06-03 19:11)
PROC: 0BH17EZ Insertion of Endotracheal Airway into Trachea, Via Natural or Artificial Opening (ICD-10-PCS; 2017-06-03 19:11)
PROC: 02HV33Z Insertion of Infusion Device into Superior Vena Cava, Percutaneous Approach (ICD-10-PCS; 2017-06-03 19:11)
PROC: 02HV33Z Insertion of Infusion Device into Superior Vena Cava, Percutaneous Approach (ICD-10-PCS; 2017-06-03 19:11)
PROC: 02HV33Z Insertion of Infusion Device into Superior Vena Cava, Percutaneous Approach (ICD-10-PCS; 2017-06-03 19:11)
DX: K55.029 Acute infarction of small intestine, extent unspecified (principal); G72.81 Critical illness myopathy; E43 Unspecified severe protein-calorie malnutrition; A41.9 Sepsis, unspecified organism; G93.41 Metabolic encephalopathy; J81.1 Chronic pulmonary edema; R65.21 Severe sepsis with septic shock; J96.01 Acute respiratory failure with hypoxia; J96.02 Acute respiratory failure with hypercapnia; R57.1 Hypovolemic shock; K66.1 Hemoperitoneum; J15.212 Pneumonia due to Methicillin resistant Staphylococcus aureus; J90 Pleural effusion, not elsewhere classified; J43.9 Emphysema, unspecified; I47.2 Ventricular tachycardia; N17.9 Acute kidney failure, unspecified; J95.851 Ventilator associated pneumonia; E87.4 Mixed disorder of acid-base balance; E87.0 Hyperosmolality and hypernatremia; D69.6 Thrombocytopenia, unspecified; B37.0 Candidal stomatitis; R55 Syncope and collapse; I82.611 Acute embolism and thrombosis of superficial veins of right upper extremity; I48.0 Paroxysmal atrial fibrillation; E87.1 Hypo-osmolality and hyponatremia; E83.41 Hypermagnesemia; E83.39 Other disorders of phosphorus metabolism; T17.990A Other foreign object in respiratory tract, part unspecified in causing asphyxiation, initial encounter; F10.232 Alcohol dependence with withdrawal with perceptual disturbance; F17.210 Nicotine dependence, cigarettes, uncomplicated; J98.11 Atelectasis; E87.6 Hypokalemia; D62 Acute posthemorrhagic anemia; Y92.230 Patient room in hospital as the place of occurrence of the external cause; Z90.49 Acquired absence of other specified parts of digestive tract; K55.049 Acute infarction of large intestine, extent unspecified; I46.9 Cardiac arrest, cause unspecified; I49.01 Ventricular fibrillation; K94.09 Other complications of colostomy

== ENCOUNTER → 2017-08-19 | Outpatient (REF) ==
[2017-08-19 09:01] LABS: ANION GAP 9 MEQ/L (8-16); BLOOD UREA NITROGEN 22 MG/DL (7-18); CALCIUM LEVEL 8.6 MG/DL (8.8-10.2); CARBON DIOXIDE LEVEL 27 MEQ/L (21-32); CHLORIDE LEVEL 100 MEQ/L (98-107); CREATININE FOR GFR 1.51 MG/DL (0.70-1.30); GLOMERULAR FILTRATION RATE 50.3 (>49); GLUCOSE, FASTING 88 MG/DL (70-100); MAGNESIUM LEVEL 1.9 MG/DL (1.8-2.4); POTASSIUM SERUM 4.7 MEQ/L (3.5-5.1); SODIUM LEVEL 136 MEQ/L (136-145)
== END ==
LOC: SKLAB2 07:00
DX: E87.1 Hypo-osmolality and hyponatremia (principal)

== ENCOUNTER 2017-08-25 19:08 | Emergency (ER) | payer BC, OTHER ==
[2017-08-25 19:55] LABS: BASO # 0.1 10^3/uL (0.0-0.2); BASO % 0.2 % (0.0-1.0); HEMATOCRIT 37.5 % (42.0-52.0); HEMOGLOBIN 12.1 g/dl (13.5-17.5); IMMATURE GRANULOCYTE % 1.4 % (0-3.0); LYMPH # 0.7 10^3/uL (1.5-4.5); LYMPH % 2.6 % (24.0-44.0); MEAN CORPUSCULAR HEMOGLOBIN 28.9 pg (27.0-33.0); MEAN CORPUSCULAR HGB CONC 32.3 g/dl (32.0-36.5); MEAN CORPUSCULAR VOLUME 89.5 fl (80.0-96.0); MONO # 1.1 10^3/uL (0.0-0.8); MONO % 4.1 % (0.0-5.0); NEUTROPHILS # 23.9 10^3/uL (1.8-7.7); NEUTROPHILS % 91.7 % (36.0-66.0); PLATELET COUNT, AUTOMATED 465 10^3/uL (150-450); RED BLOOD COUNT 4.19 10^6/uL (4.30-6.10); RED CELL DISTRIBUTION WIDTH 15.3 % (11.5-14.5); WHITE BLOOD COUNT 26.1 10^3/uL (4.0-10.0)
[2017-08-25] MEDS: ONDANSETRON 4MG/2ML VIAL (J2405) IV (20:25)
[2017-08-25 20:26] LABS: ALBUMIN 2.8 GM/DL (3.2-5.2); ALBUMIN/GLOBULIN RATIO 0.57 (1.00-1.93); ALKALINE PHOSPHATASE 62 U/L (45-117); ALT/SGPT 18 U/L (12-78); ANION GAP 8 MEQ/L (8-16); AST/SGOT 14 U/L (7-37); BILIRUBIN,DIRECT 0.2 MG/DL (0.0-0.2); BILIRUBIN,TOTAL 0.6 MG/DL (0.2-1.0); BLOOD UREA NITROGEN 24 MG/DL (7-18); CARBON DIOXIDE LEVEL 30 MEQ/L (21-32); CHLORIDE LEVEL 100 MEQ/L (98-107); CREATININE FOR GFR 1.42 MG/DL (0.70-1.30); GLUCOSE, FASTING 113 MG/DL (70-100); LIPASE 92 U/L (73-393); POTASSIUM SERUM 4.5 MEQ/L (3.5-5.1); SODIUM LEVEL 138 MEQ/L (136-145); TOTAL PROTEIN 7.7 GM/DL (6.4-8.2)
[2017-08-25 20:27] LABS: LACTIC ACID SEPSIS PROTOCOL 1.3 MMOL/L (0.4-2.0)
[2017-08-25] MEDS: NS 500 ML IV ×2 (20:34→20:45)
[2017-08-25] MEDS: GASTROGRAFIN SOLUTION 30ML PO ×2 (20:43→21:00)
[2017-08-25] MEDS ORDERED: ISOVUE-370 76% 100ML VIAL (Q9967) As Ordered (21:17)
== END 2017-08-25 23:45 | disposition home or self-care (01) ==
LOC: M ED 23:45
DX: K52.9 Noninfective gastroenteritis and colitis, unspecified (principal); R11.10 Vomiting, unspecified; Z90.49 Acquired absence of other specified parts of digestive tract; K21.9 Gastro-esophageal reflux disease without esophagitis; K86.1 Other chronic pancreatitis; Z86.59 Personal history of other mental and behavioral disorders; Z79.899 Other long term (current) drug therapy
CPT/HCPCS: Q9963

== ENCOUNTER → 2017-08-26 | Outpatient (REF) | LOC: SKLAB2 07:00 | DX: E83.42 Hypomagnesemia (principal) ==

== ENCOUNTER 2017-08-30 14:59 | Inpatient (IN) | payer BC, OTHER ==
[2017-08-30] MEDS: NS 1,000 ML IV (17:15)
[2017-08-30] MEDS: ONDANSETRON 4MG/2ML VIAL (J2405) IV (17:15)
[2017-08-30 17:23] LABS: BASO % 0.1 % (0.0-1.0); HEMATOCRIT 36.3 % (42.0-52.0); HEMOGLOBIN 11.9 g/dl (13.5-17.5); IMMATURE GRANULOCYTE % 0.4 % (0-3.0); MEAN CORPUSCULAR HEMOGLOBIN 29.1 pg (27.0-33.0); MEAN CORPUSCULAR HGB CONC 32.8 g/dl (32.0-36.5); MEAN CORPUSCULAR VOLUME 88.8 fl (80.0-96.0); MONO # 0.5 10^3/uL (0.0-0.8); MONO % 3.2 % (0.0-5.0); NEUTROPHILS % 89.3 % (36.0-66.0); PLATELET COUNT, AUTOMATED 467 10^3/uL (150-450); RED BLOOD COUNT 4.09 10^6/uL (4.30-6.10); RED CELL DISTRIBUTION WIDTH 15.7 % (11.5-14.5); WHITE BLOOD COUNT 14.6 10^3/uL (4.0-10.0)
[2017-08-30 17:39] LABS: PROTHROMBIN TIME 14.3 SECONDS (12.1-14.4)
[2017-08-30 17:40] LABS: PARTIAL THROMBOPLASTIN TIME 27.8 SECONDS (25.4-37.6)
[2017-08-30 18:21] LABS: ALBUMIN 2.7 GM/DL (3.2-5.2); ALKALINE PHOSPHATASE 72 U/L (45-117); ALT/SGPT 13 U/L (12-78); AMYLASE 17 U/L (25-115); ANION GAP 10 MEQ/L (8-16); AST/SGOT 9 U/L (7-37); BILIRUBIN,DIRECT < 0.1 MG/DL (0.0-0.2); BILIRUBIN,TOTAL 0.4 MG/DL (0.2-1.0); BLOOD UREA NITROGEN 31 MG/DL (7-18); CARBON DIOXIDE LEVEL 34 MEQ/L (21-32); CHLORIDE LEVEL 90 MEQ/L (98-107); CK-MB VALUE MASS 1.6 NG/ML (<3.6); CPK CREATINE PHOSPHOKINASE 18 U/L (39-308); CREATININE FOR GFR 2.12 MG/DL (0.70-1.30); GLUCOSE, FASTING 112 MG/DL (70-100); LIPASE 53 U/L (73-393); MB/CK RELATIVE INDEX 8.88 (< OR =4); POTASSIUM SERUM 4.4 MEQ/L (3.5-5.1); SODIUM LEVEL 134 MEQ/L (136-145); TOTAL PROTEIN 8.1 GM/DL (6.4-8.2); TROPONIN I < 0.02 NG/ML (< 0.10)
[2017-08-30 19:51] LABS: LACTIC ACID SEPSIS PROTOCOL 0.9 MMOL/L (0.4-2.0)
[2017-08-30] MEDS ORDERED: POLYVINYL ALCOHOL OPHTH SOLN 15 ML(LIQUITEARS) OU (22:00)
[2017-08-30] MEDS ORDERED: NORCO, ANEXSIA 5/325MG TABLET (HYDROcodone/ACETAMINOPHEN) PO ×2 (22:00)
[2017-08-30] MEDS ORDERED: SCOPOLAMINE 1MG TRANSDERMAL PATCH TD (22:00)
[2017-08-30] MEDS ORDERED: SALIVA SUBSTITUTE(MOUTHKOTE) BTL MT (22:00)
[2017-08-30] MEDS ORDERED: LORazepam 0.5 MG TAB PO (22:00)
[2017-08-30 22:09] LABS: KETONE, URINE AUTO RFX NEGATIVE (NEGATIVE); LEUKOCYTE ESTERASE UR AUTO RFX NEGATIVE (NEGATIVE); MUCUS, URINE RFX SMALL (NEGATIVE); NITRITE, URINE AUTO RFX NEGATIVE (NEGATIVE); RBC, URINE AUTO RFX 6 /HPF (0-3); SPECIFIC GRAVITY UR AUTO RFX 1.019 (1.002-1.035); SQUAM EPITHELIAL CELL UR AURFX 0 /HPF (0-6); WBC, URINE AUTO RFX 2 /HPF (0-3)
[2017-08-30] MEDS: HALOPERIDOL 5 MG/ML VIAL (J1630) IV (23:00)
[2017-08-31] MEDS: LR 1,000 ML IV ×3 (00:08→17:44)
[2017-08-31] MEDS: MAGNESIUM OXIDE 400 MG TAB (MAG-OX) NG ×3 (00:24→21:01)
[2017-08-31] MEDS: ONDANSETRON 4MG/2ML VIAL (J2405) IV (00:30)
[2017-08-31] MEDS: MORPHINE 4 MG/ML 1ML VIAL/SYRINGE (J2270) IV (00:39)
[2017-08-31] MEDS: PANTOPRAZOLE 40MG INJ (PROTONIX) (C9113) IV (08:51)
[2017-09-01] MEDS: LR 1,000 ML IV (08:36)
[2017-09-01] MEDS: PANTOPRAZOLE 40MG INJ (PROTONIX) (C9113) IV (08:37)
[2017-09-01] MEDS: MAGNESIUM OXIDE 400 MG TAB (MAG-OX) NG ×2 (08:37→20:23)
[2017-09-01] MEDS: AMIODARONE 200 MG TAB (PACERONE) PO (08:37)
[2017-09-01 10:38] LABS: ANION GAP 6 MEQ/L (8-16); BLOOD UREA NITROGEN 15 MG/DL (7-18); CALCIUM LEVEL 8.2 MG/DL (8.8-10.2); CARBON DIOXIDE LEVEL 32 MEQ/L (21-32); CHLORIDE LEVEL 100 MEQ/L (98-107); CREATININE FOR GFR 1.25 MG/DL (0.70-1.30); GLOMERULAR FILTRATION RATE > 60.0 (>49); GLUCOSE, FASTING 79 MG/DL (70-100); POTASSIUM SERUM 3.6 MEQ/L (3.5-5.1); SODIUM LEVEL 138 MEQ/L (136-145)
[2017-09-01] MEDS ORDERED: SLF 3 ML SYR IV (10:45)
[2017-09-01 10:47] LABS: HEMATOCRIT 33.3 % (42.0-52.0); HEMOGLOBIN 10.7 g/dl (13.5-17.5); MEAN CORPUSCULAR HEMOGLOBIN 28.7 pg (27.0-33.0); MEAN CORPUSCULAR HGB CONC 32.1 g/dl (32.0-36.5); MEAN CORPUSCULAR VOLUME 89.3 fl (80.0-96.0); PLATELET COUNT, AUTOMATED 390 10^3/uL (150-450); RED BLOOD COUNT 3.73 10^6/uL (4.30-6.10); RED CELL DISTRIBUTION WIDTH 15.5 % (11.5-14.5); WHITE BLOOD COUNT 4.8 10^3/uL (4.0-10.0)
[2017-09-01 10:50] LABS: ADD MANUAL DIFFER YES; DIFF SLIDE NUMBER 111; POSITIVE MORPH POS FLAG
[2017-09-01 11:22] LABS: ATYPICAL LYMPH 1 % (0-5); BASOPHILS 1 % (0-4); EOSINOPHILS 1 % (0-5); LYMPHOCYTES 26 % (16-52); MONOCYTES 10 % (0-8); NEUTROPHILS 61 % (35-75); PLATELET ESTIMATE NORMAL (NORMAL)
[2017-09-01] MEDS: SLF 3 ML SYR IV ×2 (13:55→20:23)
[2017-09-02] MEDS: SLF 3 ML SYR IV (05:35)
[2017-09-02] MEDS: MAGNESIUM OXIDE 400 MG TAB (MAG-OX) NG (08:50)
[2017-09-02] MEDS: PANTOPRAZOLE 40MG INJ (PROTONIX) (C9113) IV ×2 (08:50→09:00)
[2017-09-02] MEDS ORDERED: ONDANSETRON 4 MG ORAL DISINTEGRATING TAB (Q0162 PER 1MG) PO (11:15)
[2017-09-02] MEDS: PANTOPRAZOLE 40MG TAB (PROTONIX) PO (13:26)
[2017-09-02] MEDS: MAGNESIUM OXIDE 400 MG TAB (MAG-OX) PO (20:30)
[2017-09-03] MEDS: AMIODARONE 200 MG TAB (PACERONE) PO (09:55)
[2017-09-03] MEDS: MAGNESIUM OXIDE 400 MG TAB (MAG-OX) PO (09:55)
[2017-09-03] MEDS: PANTOPRAZOLE 40MG TAB (PROTONIX) PO (09:55)
== END 2017-09-03 13:49 | DRG 247 ==
LOC: M ED 14:59 → M ED INP 21:59 → M PCU 23:51
DX: K56.600 Partial intestinal obstruction, unspecified as to cause (principal); E43 Unspecified severe protein-calorie malnutrition; G93.1 Anoxic brain damage, not elsewhere classified; Z86.74 Personal history of sudden cardiac arrest; I48.91 Unspecified atrial fibrillation; J44.9 Chronic obstructive pulmonary disease, unspecified; K52.9 Noninfective gastroenteritis and colitis, unspecified; F10.21 Alcohol dependence, in remission; K21.9 Gastro-esophageal reflux disease without esophagitis; Z87.891 Personal history of nicotine dependence; Z90.49 Acquired absence of other specified parts of digestive tract; Z93.3 Colostomy status; Z79.899 Other long term (current) drug therapy; Z88.0 Allergy status to penicillin

== ENCOUNTER → 2017-08-30 | Outpatient (REF) ==
[2017-08-30 13:24] LABS: ANION GAP 9 MEQ/L (8-16); BLOOD UREA NITROGEN 30 MG/DL (7-18); CALCIUM LEVEL 9.2 MG/DL (8.8-10.2); CARBON DIOXIDE LEVEL 33 MEQ/L (21-32); CHLORIDE LEVEL 93 MEQ/L (98-107); CREATININE FOR GFR 2.13 MG/DL (0.70-1.30); GLOMERULAR FILTRATION RATE 33.8 (>49); GLUCOSE, FASTING 134 MG/DL (70-100); MAGNESIUM LEVEL 2.2 MG/DL (1.8-2.4); POTASSIUM SERUM 4.3 MEQ/L (3.5-5.1); SODIUM LEVEL 135 MEQ/L (136-145)
[2017-08-30 14:00] LABS: HEMATOCRIT 40.3 % (42.0-52.0); MEAN CORPUSCULAR HEMOGLOBIN 29.1 pg (27.0-33.0); MEAN CORPUSCULAR HGB CONC 32.3 g/dl (32.0-36.5); MEAN CORPUSCULAR VOLUME 90.2 fl (80.0-96.0); PLATELET COUNT, AUTOMATED 487 10^3/uL (150-450); RED BLOOD COUNT 4.47 10^6/uL (4.30-6.10); RED CELL DISTRIBUTION WIDTH 15.6 % (11.5-14.5); WHITE BLOOD COUNT 14.7 10^3/uL (4.0-10.0)
== END ==
LOC: SKLAB2 12:21
DX: R11.2 Nausea with vomiting, unspecified (principal); K52.9 Noninfective gastroenteritis and colitis, unspecified

== ENCOUNTER → 2017-09-09 | Outpatient (REF) ==
[2017-09-09 09:53] LABS: MAGNESIUM LEVEL 1.8 MG/DL (1.8-2.4)
== END ==
LOC: SKLAB2 07:00
DX: E83.42 Hypomagnesemia (principal)

== ENCOUNTER 2017-09-15 02:29 | Inpatient (IN) | payer BC, OTHER ==
[2017-09-15 04:36] LABS: BASO % 0.2 % (0.0-1.0); HEMATOCRIT 39.2 % (42.0-52.0); HEMOGLOBIN 13.4 g/dl (13.5-17.5); IMMATURE GRANULOCYTE % 0.2 % (0-3.0); LYMPH # 1.3 10^3/uL (1.5-4.5); LYMPH % 10.1 % (24.0-44.0); MEAN CORPUSCULAR HEMOGLOBIN 29.4 pg (27.0-33.0); MEAN CORPUSCULAR HGB CONC 34.2 g/dl (32.0-36.5); MONO # 0.6 10^3/uL (0.0-0.8); MONO % 4.8 % (0.0-5.0); NEUTROPHILS # 10.5 10^3/uL (1.8-7.7); NEUTROPHILS % 84.7 % (36.0-66.0); PLATELET COUNT, AUTOMATED 362 10^3/uL (150-450); RED BLOOD COUNT 4.56 10^6/uL (4.30-6.10); RED CELL DISTRIBUTION WIDTH 15.6 % (11.5-14.5); WHITE BLOOD COUNT 12.4 10^3/uL (4.0-10.0)
[2017-09-15] MEDS: GASTROGRAFIN SOLUTION 30ML PO ×2 (04:36→05:15)
[2017-09-15 05:04] LABS: ALBUMIN 3.3 GM/DL (3.2-5.2); ALBUMIN/GLOBULIN RATIO 0.75 (1.00-1.93); ALKALINE PHOSPHATASE 78 U/L (45-117); ALT/SGPT 13 U/L (12-78); ANION GAP 9 MEQ/L (8-16); AST/SGOT 7 U/L (7-37); BILIRUBIN,DIRECT 0.2 MG/DL (0.0-0.2); BILIRUBIN,TOTAL 0.5 MG/DL (0.2-1.0); BLOOD UREA NITROGEN 32 MG/DL (7-18); CALCIUM LEVEL 9.4 MG/DL (8.8-10.2); CARBON DIOXIDE LEVEL 38 MEQ/L (21-32); CHLORIDE LEVEL 85 MEQ/L (98-107); CREATININE FOR GFR 2.51 MG/DL (0.70-1.30); GLUCOSE, FASTING 126 MG/DL (70-100); LIPASE 91 U/L (73-393); POTASSIUM SERUM 5.1 MEQ/L (3.5-5.1); SODIUM LEVEL 132 MEQ/L (136-145); TOTAL PROTEIN 7.7 GM/DL (6.4-8.2)
[2017-09-15 05:05] LABS: LACTIC ACID SEPSIS PROTOCOL 1.6 MMOL/L (0.4-2.0)
[2017-09-15] MEDS: NS 500 ML IV (05:11)
[2017-09-15] MEDS: METOCLOPRAMIDE INJ 10MG/2ML VIAL (J2765) IV (05:11)
[2017-09-15] MEDS: NS 1,000 ML IV ×2 (07:23→15:00)
[2017-09-15] MEDS ORDERED: AMIODARONE 200 MG TAB (PACERONE) NG (09:00)
[2017-09-15] MEDS: PANTOPRAZOLE 40MG INJ (PROTONIX) (C9113) IV (09:00)
[2017-09-15] MEDS: ONDANSETRON 4MG/2ML VIAL (J2405) IV (09:49)
[2017-09-15] MEDS: CIPROFLOXACIN 400 MG in APPROPRIATE DILUENT 1 EA IV (12:00)
[2017-09-15] MEDS: metroNIDAZOLE 500 MG in APPROPRIATE DILUENT 1 EA IV ×2 (15:00→21:43)
[2017-09-15] MEDS: SENOKOT S TAB PO (21:00)
[2017-09-15] MEDS: HEPARIN SOD (PORCINE) 5000 UNITS/ML VIAL SQ (21:43)
[2017-09-16] MEDS: metroNIDAZOLE 500 MG in APPROPRIATE DILUENT 1 EA IV ×3 (04:53→21:20)
[2017-09-16] MEDS: NS 1,000 ML IV ×2 (04:53→13:23)
[2017-09-16 06:57] LABS: HEMATOCRIT 26.8 % (42.0-52.0); MEAN CORPUSCULAR HEMOGLOBIN 29.1 pg (27.0-33.0); MEAN CORPUSCULAR HGB CONC 32.8 g/dl (32.0-36.5); MEAN CORPUSCULAR VOLUME 88.7 fl (80.0-96.0); PLATELET COUNT, AUTOMATED 272 10^3/uL (150-450); RED BLOOD COUNT 3.02 10^6/uL (4.30-6.10); RED CELL DISTRIBUTION WIDTH 15.9 % (11.5-14.5)
[2017-09-16 07:08] LABS: HEMOGLOBIN 8.8 g/dl (13.5-17.5)
[2017-09-16 07:11] LABS: ANION GAP 7 MEQ/L (8-16); BLOOD UREA NITROGEN 32 MG/DL (7-18); CARBON DIOXIDE LEVEL 28 MEQ/L (21-32); CHLORIDE LEVEL 100 MEQ/L (98-107); CREATININE FOR GFR 1.89 MG/DL (0.70-1.30); GLOMERULAR FILTRATION RATE 38.8 (>49); GLUCOSE, FASTING 94 MG/DL (70-100); POTASSIUM SERUM 3.5 MEQ/L (3.5-5.1); SODIUM LEVEL 135 MEQ/L (136-145)
[2017-09-16 07:19] LABS: CALCIUM LEVEL 7.4 MG/DL (8.8-10.2)
[2017-09-16] MEDS: HEPARIN SOD (PORCINE) 5000 UNITS/ML VIAL SQ ×2 (09:47→21:21)
[2017-09-16] MEDS: CIPROFLOXACIN 400 MG in APPROPRIATE DILUENT 1 EA IV ×2 (09:47→22:40)
[2017-09-16] MEDS: PANTOPRAZOLE 40MG INJ (PROTONIX) (C9113) IV (09:47)
[2017-09-16] MEDS: SENOKOT S TAB PO ×2 (09:47→21:21)
[2017-09-16] MEDS: AMINO AC/ELECTROLYTE/DEX/CALC 1,000 ML IV (17:49)
[2017-09-16] MEDS: FAT EMULSION IV 20% 500 ML IV (17:50)
[2017-09-17] MEDS: NS 1,000 ML IV ×2 (02:07→12:13)
[2017-09-17] MEDS: metroNIDAZOLE 500 MG in APPROPRIATE DILUENT 1 EA IV ×3 (04:19→20:30)
[2017-09-17 06:12] LABS: HEMATOCRIT 27.2 % (42.0-52.0); HEMOGLOBIN 9.1 g/dl (13.5-17.5); MEAN CORPUSCULAR HEMOGLOBIN 29.4 pg (27.0-33.0); MEAN CORPUSCULAR HGB CONC 33.5 g/dl (32.0-36.5); MEAN CORPUSCULAR VOLUME 87.7 fl (80.0-96.0); PLATELET COUNT, AUTOMATED 267 10^3/uL (150-450); RED CELL DISTRIBUTION WIDTH 15.7 % (11.5-14.5); WHITE BLOOD COUNT 7.6 10^3/uL (4.0-10.0)
[2017-09-17 06:28] LABS: ANION GAP 8 MEQ/L (8-16); BLOOD UREA NITROGEN 20 MG/DL (7-18); CALCIUM LEVEL 7.4 MG/DL (8.8-10.2); CARBON DIOXIDE LEVEL 26 MEQ/L (21-32); CHLORIDE LEVEL 102 MEQ/L (98-107); CREATININE FOR GFR 1.22 MG/DL (0.70-1.30); GLOMERULAR FILTRATION RATE > 60.0 (>49); GLUCOSE, FASTING 110 MG/DL (70-100); MAGNESIUM LEVEL 1.9 MG/DL (1.8-2.4); POTASSIUM SERUM 2.9 MEQ/L (3.5-5.1); SODIUM LEVEL 136 MEQ/L (136-145)
[2017-09-17] MEDS: POTASSIUM CHLORIDE 10 MEQ SR TABLET PO ×2 (07:00→09:53)
[2017-09-17] MEDS: AMINO AC/ELECTROLYTE/DEX/CALC 1,000 ML IV ×2 (07:12→17:55)
[2017-09-17 07:30] LABS: PHOSPHORUS LEVEL 2.3 MG/DL (2.5-4.9)
[2017-09-17 07:41] LABS: IONIZED CALCIUM 4.5 MG/DL (4.5-5.3)
[2017-09-17] MEDS: SENOKOT S TAB PO ×2 (09:00→20:30)
[2017-09-17] MEDS: HEPARIN SOD (PORCINE) 5000 UNITS/ML VIAL SQ ×2 (09:00→20:32)
[2017-09-17] MEDS: CIPROFLOXACIN 400 MG in APPROPRIATE DILUENT 1 EA IV ×2 (09:00→21:33)
[2017-09-17] MEDS: PANTOPRAZOLE 40MG INJ (PROTONIX) (C9113) IV (09:00)
[2017-09-17 14:44] LABS: ANION GAP 7 MEQ/L (8-16); BLOOD UREA NITROGEN 16 MG/DL (7-18); CALCIUM LEVEL 7.4 MG/DL (8.8-10.2); CARBON DIOXIDE LEVEL 26 MEQ/L (21-32); CHLORIDE LEVEL 103 MEQ/L (98-107); CREATININE FOR GFR 1.01 MG/DL (0.70-1.30); GLOMERULAR FILTRATION RATE > 60.0 (>49); GLUCOSE, FASTING 116 MG/DL (70-100); POTASSIUM SERUM 3.3 MEQ/L (3.5-5.1); SODIUM LEVEL 136 MEQ/L (136-145)
[2017-09-17] MEDS ORDERED: POTASSIUM CHLORIDE 10 MEQ SR TABLET PO (15:15)
[2017-09-17] MEDS: FAT EMULSION IV 20% 500 ML IV (17:55)
[2017-09-17] MEDS: ACETAMINOPHEN TAB 650MG DOSE (2X325MG) PO (20:30)
[2017-09-18] MEDS: NS 1,000 ML IV (05:46)
[2017-09-18] MEDS: metroNIDAZOLE 500 MG in APPROPRIATE DILUENT 1 EA IV ×3 (05:46→22:33)
[2017-09-18] MEDS: AMINO AC/ELECTROLYTE/DEX/CALC 1,000 ML IV ×2 (06:09→20:54)
[2017-09-18 06:39] LABS: HEMATOCRIT 28.5 % (42.0-52.0); HEMOGLOBIN 9.3 g/dl (13.5-17.5); MEAN CORPUSCULAR HGB CONC 32.6 g/dl (32.0-36.5); MEAN CORPUSCULAR VOLUME 88.8 fl (80.0-96.0); PLATELET COUNT, AUTOMATED 261 10^3/uL (150-450); RED BLOOD COUNT 3.21 10^6/uL (4.30-6.10); RED CELL DISTRIBUTION WIDTH 15.5 % (11.5-14.5); WHITE BLOOD COUNT 5.7 10^3/uL (4.0-10.0)
[2017-09-18 06:55] LABS: ANION GAP 7 MEQ/L (8-16); BLOOD UREA NITROGEN 10 MG/DL (7-18); CALCIUM LEVEL 7.5 MG/DL (8.8-10.2); CARBON DIOXIDE LEVEL 24 MEQ/L (21-32); CHLORIDE LEVEL 107 MEQ/L (98-107); CREATININE FOR GFR 0.84 MG/DL (0.70-1.30); GLOMERULAR FILTRATION RATE > 60.0 (>49); GLUCOSE, FASTING 107 MG/DL (70-100); MAGNESIUM LEVEL 1.8 MG/DL (1.8-2.4); POTASSIUM SERUM 3.3 MEQ/L (3.5-5.1); SODIUM LEVEL 138 MEQ/L (136-145)
[2017-09-18] MEDS: SENOKOT S TAB PO ×3 (09:00→20:54)
[2017-09-18] MEDS: HEPARIN SOD (PORCINE) 5000 UNITS/ML VIAL SQ ×2 (09:00→20:54)
[2017-09-18] MEDS: CIPROFLOXACIN 400 MG in APPROPRIATE DILUENT 1 EA IV ×2 (10:01→20:54)
[2017-09-18] MEDS: PANTOPRAZOLE 40MG INJ (PROTONIX) (C9113) IV (10:01)
[2017-09-18] MEDS: FAT EMULSION IV 20% 500 ML IV (18:23)
[2017-09-19] MEDS: KETOROLAC 30 MG/ML VIAL (J1885) IV ×2 (01:49→17:52)
[2017-09-19] MEDS: metroNIDAZOLE 500 MG in APPROPRIATE DILUENT 1 EA IV ×3 (04:29→22:16)
[2017-09-19 06:13] LABS: HEMATOCRIT 28.5 % (42.0-52.0); HEMOGLOBIN 9.5 g/dl (13.5-17.5); MEAN CORPUSCULAR HEMOGLOBIN 29.3 pg (27.0-33.0); MEAN CORPUSCULAR HGB CONC 33.3 g/dl (32.0-36.5); PLATELET COUNT, AUTOMATED 265 10^3/uL (150-450); RED BLOOD COUNT 3.24 10^6/uL (4.30-6.10); RED CELL DISTRIBUTION WIDTH 15.4 % (11.5-14.5); WHITE BLOOD COUNT 7.9 10^3/uL (4.0-10.0)
[2017-09-19 06:31] LABS: ANION GAP 8 MEQ/L (8-16); BLOOD UREA NITROGEN 8 MG/DL (7-18); CALCIUM LEVEL 7.5 MG/DL (8.8-10.2); CARBON DIOXIDE LEVEL 26 MEQ/L (21-32); CHLORIDE LEVEL 103 MEQ/L (98-107); CREATININE FOR GFR 0.88 MG/DL (0.70-1.30); GLOMERULAR FILTRATION RATE > 60.0 (>49); GLUCOSE, FASTING 118 MG/DL (70-100); MAGNESIUM LEVEL 1.6 MG/DL (1.8-2.4); SODIUM LEVEL 137 MEQ/L (136-145)
[2017-09-19] MEDS: SENOKOT S TAB PO ×2 (08:44→22:15)
[2017-09-19] MEDS: PANTOPRAZOLE 40MG INJ (PROTONIX) (C9113) IV (08:52)
[2017-09-19] MEDS: HEPARIN SOD (PORCINE) 5000 UNITS/ML VIAL SQ ×2 (08:53→22:16)
[2017-09-19] MEDS: CIPROFLOXACIN 400 MG in APPROPRIATE DILUENT 1 EA IV ×2 (08:53→23:26)
[2017-09-19] MEDS ORDERED: E-Z-GAS II EFFERVESCENT PACKET (SODIUM BICARB./CITRIC ACID/SIMETHICONE) As Ordered (10:37)
[2017-09-19] MEDS ORDERED: E-Z-PAQUE 96% w/w SUSP 176GM BTL As Ordered ×2 (10:37→10:48)
[2017-09-19] MEDS ORDERED: E-Z-HD 98% w/w 340GM SUSP BTL As Ordered (10:37)
[2017-09-19] MEDS: AMINO AC/ELECTROLYTE/DEX/CALC 1,000 ML IV ×2 (12:53→17:35)
[2017-09-19] MEDS: FAT EMULSION IV 20% 500 ML IV (17:35)
[2017-09-19] MEDS: ACETAMINOPHEN TAB 650MG DOSE (2X325MG) PO (22:15)
[2017-09-20] MEDS: metroNIDAZOLE 500 MG in APPROPRIATE DILUENT 1 EA IV ×3 (05:21→21:58)
[2017-09-20] MEDS: AMINO AC/ELECTROLYTE/DEX/CALC 1,000 ML IV ×2 (05:49→18:29)
[2017-09-20 06:16] LABS: HEMATOCRIT 28.2 % (42.0-52.0); HEMOGLOBIN 9.5 g/dl (13.5-17.5); MEAN CORPUSCULAR HEMOGLOBIN 29.3 pg (27.0-33.0); MEAN CORPUSCULAR HGB CONC 33.7 g/dl (32.0-36.5); PLATELET COUNT, AUTOMATED 278 10^3/uL (150-450); RED BLOOD COUNT 3.24 10^6/uL (4.30-6.10); RED CELL DISTRIBUTION WIDTH 15.7 % (11.5-14.5); WHITE BLOOD COUNT 6.7 10^3/uL (4.0-10.0)
[2017-09-20 06:35] LABS: ANION GAP 8 MEQ/L (8-16); BLOOD UREA NITROGEN 11 MG/DL (7-18); CALCIUM LEVEL 7.6 MG/DL (8.8-10.2); CARBON DIOXIDE LEVEL 23 MEQ/L (21-32); CHLORIDE LEVEL 105 MEQ/L (98-107); CREATININE FOR GFR 0.87 MG/DL (0.70-1.30); GLOMERULAR FILTRATION RATE > 60.0 (>49); GLUCOSE, FASTING 103 MG/DL (70-100); MAGNESIUM LEVEL 1.8 MG/DL (1.8-2.4); POTASSIUM SERUM 3.6 MEQ/L (3.5-5.1); SODIUM LEVEL 136 MEQ/L (136-145)
[2017-09-20] MEDS: SENOKOT S TAB PO ×2 (09:43→20:28)
[2017-09-20] MEDS: HEPARIN SOD (PORCINE) 5000 UNITS/ML VIAL SQ ×2 (09:44→20:28)
[2017-09-20] MEDS: PANTOPRAZOLE 40MG INJ (PROTONIX) (C9113) IV (09:44)
[2017-09-20] MEDS: CIPROFLOXACIN 400 MG in APPROPRIATE DILUENT 1 EA IV ×2 (09:45→20:29)
[2017-09-20] MEDS: ONDANSETRON 4MG/2ML VIAL (J2405) IV (15:05)
[2017-09-20] MEDS: FAT EMULSION IV 20% 500 ML IV (18:29)
[2017-09-21] MEDS: ONDANSETRON 4MG/2ML VIAL (J2405) IV ×3 (00:30→20:14)
[2017-09-21] MEDS: metroNIDAZOLE 500 MG in APPROPRIATE DILUENT 1 EA IV ×3 (05:33→21:45)
[2017-09-21 06:16] LABS: HEMATOCRIT 29.7 % (42.0-52.0); MEAN CORPUSCULAR HEMOGLOBIN 29.1 pg (27.0-33.0); MEAN CORPUSCULAR HGB CONC 33.7 g/dl (32.0-36.5); MEAN CORPUSCULAR VOLUME 86.3 fl (80.0-96.0); PLATELET COUNT, AUTOMATED 313 10^3/uL (150-450); RED BLOOD COUNT 3.44 10^6/uL (4.30-6.10); RED CELL DISTRIBUTION WIDTH 16.2 % (11.5-14.5); WHITE BLOOD COUNT 8.2 10^3/uL (4.0-10.0)
[2017-09-21 06:41] LABS: ANION GAP 9 MEQ/L (8-16); BLOOD UREA NITROGEN 12 MG/DL (7-18); CALCIUM LEVEL 7.8 MG/DL (8.8-10.2); CARBON DIOXIDE LEVEL 27 MEQ/L (21-32); CHLORIDE LEVEL 102 MEQ/L (98-107); CREATININE FOR GFR 0.83 MG/DL (0.70-1.30); GLOMERULAR FILTRATION RATE > 60.0 (>49); GLUCOSE, FASTING 115 MG/DL (70-100); MAGNESIUM LEVEL 1.8 MG/DL (1.8-2.4); POTASSIUM SERUM 3.8 MEQ/L (3.5-5.1); SODIUM LEVEL 138 MEQ/L (136-145)
[2017-09-21] MEDS: ACETAMINOPHEN TAB 650MG DOSE (2X325MG) PO ×2 (06:50→22:54)
[2017-09-21] MEDS: HEPARIN SOD (PORCINE) 5000 UNITS/ML VIAL SQ ×3 (10:18→21:00)
[2017-09-21] MEDS: PANTOPRAZOLE 40MG INJ (PROTONIX) (C9113) IV (10:18)
[2017-09-21] MEDS: AMINO AC/ELECTROLYTE/DEX/CALC 1,000 ML IV ×2 (10:19→22:54)
[2017-09-21] MEDS: CIPROFLOXACIN 400 MG in APPROPRIATE DILUENT 1 EA IV ×2 (10:19→20:36)
[2017-09-21] MEDS: SENOKOT S TAB PO ×2 (10:20→20:36)
[2017-09-21] MEDS: FAT EMULSION IV 20% 500 ML IV (18:21)
[2017-09-22] MEDS: metroNIDAZOLE 500 MG in APPROPRIATE DILUENT 1 EA IV ×2 (05:19→12:19)
[2017-09-22] MEDS: ONDANSETRON 4MG/2ML VIAL (J2405) IV ×2 (05:19→20:07)
[2017-09-22] MEDS: CIPROFLOXACIN 400 MG in APPROPRIATE DILUENT 1 EA IV (08:47)
[2017-09-22] MEDS: PANTOPRAZOLE 40MG INJ (PROTONIX) (C9113) IV (08:47)
[2017-09-22] MEDS: HEPARIN SOD (PORCINE) 5000 UNITS/ML VIAL SQ ×2 (08:47→20:07)
[2017-09-22] MEDS: SENOKOT S TAB PO (08:47)
[2017-09-22] MEDS: AMINO AC/ELECTROLYTE/DEX/CALC 1,000 ML IV ×2 (10:01→20:07)
[2017-09-22] MEDS: FAT EMULSION IV 20% 500 ML IV ×2 (17:04→18:00)
[2017-09-23 06:24] LABS: ALBUMIN 2.3 GM/DL (3.2-5.2); ALBUMIN/GLOBULIN RATIO 0.59 (1.00-1.93); ALKALINE PHOSPHATASE 40 U/L (45-117); ALT/SGPT 14 U/L (12-78); ANION GAP 7 MEQ/L (8-16); AST/SGOT 17 U/L (7-37); BILIRUBIN,TOTAL 0.2 MG/DL (0.2-1.0); BLOOD UREA NITROGEN 15 MG/DL (7-18); CARBON DIOXIDE LEVEL 25 MEQ/L (21-32); CHLORIDE LEVEL 101 MEQ/L (98-107); CREATININE FOR GFR 0.77 MG/DL (0.70-1.30); GLOMERULAR FILTRATION RATE > 60.0 (>49); GLUCOSE, FASTING 101 MG/DL (70-100); POTASSIUM SERUM 4.4 MEQ/L (3.5-5.1); SODIUM LEVEL 133 MEQ/L (136-145); TOTAL PROTEIN 6.2 GM/DL (6.4-8.2)
[2017-09-23] MEDS: AMINO AC/ELECTROLYTE/DEX/CALC 1,000 ML IV ×2 (06:25→17:45)
[2017-09-23 08:55] LABS: BASO % 0.3 % (0.0-1.0); EOS # 0.2 10^3/uL (0.0-0.50); EOS % 2.6 % (0.0-3.0); HEMATOCRIT 31.5 % (42.0-52.0); HEMOGLOBIN 10.5 g/dl (13.5-17.5); IMMATURE GRANULOCYTE % 0.7 % (0-3.0); LYMPH # 0.8 10^3/uL (1.5-4.5); LYMPH % 14.4 % (24.0-44.0); MEAN CORPUSCULAR HGB CONC 33.3 g/dl (32.0-36.5); MONO # 0.6 10^3/uL (0.0-0.8); MONO % 10.6 % (0.0-5.0); NEUTROPHILS # 4.1 10^3/uL (1.8-7.7); NEUTROPHILS % 71.4 % (36.0-66.0); PLATELET COUNT, AUTOMATED 375 10^3/uL (150-450); RED BLOOD COUNT 3.62 10^6/uL (4.30-6.10); RED CELL DISTRIBUTION WIDTH 16.3 % (11.5-14.5); WHITE BLOOD COUNT 5.8 10^3/uL (4.0-10.0)
[2017-09-23] MEDS: HEPARIN SOD (PORCINE) 5000 UNITS/ML VIAL SQ ×2 (09:00→22:15)
[2017-09-23] MEDS: PANTOPRAZOLE 40MG INJ (PROTONIX) (C9113) IV (09:00)
[2017-09-23] MEDS: FAT EMULSION IV 20% 500 ML IV (18:40)
[2017-09-23] MEDS: AMINO AC/ELECTROLYTE/DEX/CALC 2,000 ML IV (18:40)
[2017-09-23] MEDS: SODIUM CHLORIDE 0.9% INJ 10 ML SYR IV ×2 (18:41→23:46)
[2017-09-23] MEDS: ONDANSETRON 4MG/2ML VIAL (J2405) IV (23:46)
[2017-09-24] MEDS: ACETAMINOPHEN TAB 650MG DOSE (2X325MG) PO (04:23)
[2017-09-24] MEDS: SODIUM CHLORIDE 0.9% INJ 10 ML SYR IV ×4 (05:41→21:58)
[2017-09-24] MEDS: ONDANSETRON 4MG/2ML VIAL (J2405) IV ×2 (05:42→21:58)
[2017-09-24] MEDS: HEPARIN SOD (PORCINE) 5000 UNITS/ML VIAL SQ ×2 (09:41→21:58)
[2017-09-24] MEDS ORDERED: PROMETHAZINE INJ 25 MG/ML VIAL (J2550) IV (10:45)
[2017-09-24] MEDS: PROCHLORPERAZINE 5 MG TAB (S0183) PO (11:03)
[2017-09-24] MEDS: PANTOPRAZOLE 40MG INJ (PROTONIX) (C9113) IV (11:28)
[2017-09-24] MEDS: FLEET ENEMA PR ×2 (11:40→21:59)
[2017-09-24] MEDS: OCTREOTIDE ACETATE 100 MCG/ML VIAL (J2354) IV ×2 (13:02→21:58)
[2017-09-24] MEDS: AMINO AC/ELECTROLYTE/DEX/CALC 2,000 ML IV (17:53)
[2017-09-24] MEDS: FAT EMULSION IV 20% 500 ML IV (17:53)
[2017-09-25] MEDS: ONDANSETRON 4MG/2ML VIAL (J2405) IV (06:20)
[2017-09-25] MEDS: SODIUM CHLORIDE 0.9% INJ 10 ML SYR IV ×3 (06:20→21:58)
[2017-09-25] MEDS: OCTREOTIDE ACETATE 100 MCG/ML VIAL (J2354) IV ×3 (06:22→21:57)
[2017-09-25] MEDS: HEPARIN SOD (PORCINE) 5000 UNITS/ML VIAL SQ ×2 (09:41→21:57)
[2017-09-25] MEDS: PANTOPRAZOLE 40MG INJ (PROTONIX) (C9113) IV (09:41)
[2017-09-25] MEDS: FLEET ENEMA PR ×2 (09:54→21:57)
[2017-09-25] MEDS: SIMETHICONE 80 MG CHEW TAB PO ×3 (14:04→21:57)
[2017-09-25] MEDS: MULTIVITAMIN -ADULT INJECTION 10 ML, CR/CU/SE/MN/ZN INJ 1 ML in AMINO AC/ELECTROLYTE/DE... IV (16:58)
[2017-09-25] MEDS: FAT EMULSION IV 20% 500 ML IV (16:58)
[2017-09-26] MEDS: SODIUM CHLORIDE 0.9% INJ 10 ML SYR IV ×2 (05:29→16:21)
[2017-09-26] MEDS: OCTREOTIDE ACETATE 100 MCG/ML VIAL (J2354) IV ×2 (05:29→13:22)
[2017-09-26] MEDS: SIMETHICONE 80 MG CHEW TAB PO ×3 (09:53→16:29)
[2017-09-26] MEDS: HEPARIN SOD (PORCINE) 5000 UNITS/ML VIAL SQ (09:53)
[2017-09-26] MEDS: PANTOPRAZOLE 40MG INJ (PROTONIX) (C9113) IV (09:54)
[2017-09-26] MEDS: FLEET ENEMA PR (09:54)
== END 2017-09-26 17:15 | disposition short-term general hospital (02) | DRG 247 ==
LOC: M ED 02:29 → M ED INP 11:25 → M MSPAV 13:08
PROC: 3E0436Z Introduction of Nutritional Substance into Central Vein, Percutaneous Approach (ICD-10-PCS; 2017-09-16)
PROC: 02HV33Z Insertion of Infusion Device into Superior Vena Cava, Percutaneous Approach (ICD-10-PCS; principal; 2017-09-23)
DX: K56.600 Partial intestinal obstruction, unspecified as to cause (principal); E43 Unspecified severe protein-calorie malnutrition; F03.90 Unspecified dementia, unspecified severity, without behavioral disturbance, psychotic disturbance, mood disturbance, and anxiety; J44.9 Chronic obstructive pulmonary disease, unspecified; I48.0 Paroxysmal atrial fibrillation; Z90.49 Acquired absence of other specified parts of digestive tract; F17.210 Nicotine dependence, cigarettes, uncomplicated; E87.6 Hypokalemia; Z66 Do not resuscitate; Z93.3 Colostomy status; Z88.0 Allergy status to penicillin; Z79.899 Other long term (current) drug therapy; Z68.1 Body mass index [BMI] 19.9 or less, adult

== ENCOUNTER → 2017-11-07 | Outpatient (REF) ==
[2017-11-07 11:25] LABS: ALBUMIN 3.1 GM/DL (3.2-5.2); ALBUMIN/GLOBULIN RATIO 0.74 (1.00-1.93); ALKALINE PHOSPHATASE 351 U/L (45-117); ALT/SGPT 98 U/L (12-78); ANION GAP 10 MEQ/L (8-16); AST/SGOT 39 U/L (7-37); BILIRUBIN,TOTAL 0.7 MG/DL (0.2-1.0); BLOOD UREA NITROGEN 32 MG/DL (7-18); CALCIUM LEVEL 10.6 MG/DL (8.8-10.2); CARBON DIOXIDE LEVEL 25 MEQ/L (21-32); CHLORIDE LEVEL 100 MEQ/L (98-107); CREATININE FOR GFR 1.05 MG/DL (0.70-1.30); GLOMERULAR FILTRATION RATE > 60.0 (>49); GLUCOSE, FASTING 91 MG/DL (70-100); POTASSIUM SERUM 4.8 MEQ/L (3.5-5.1); SODIUM LEVEL 135 MEQ/L (136-145); TOTAL PROTEIN 7.3 GM/DL (6.4-8.2)
== END ==
LOC: SKLAB4 13:37
DX: D64.9 Anemia, unspecified (principal)

== ENCOUNTER → 2017-11-13 | Outpatient (REF) | payer BC, OTHER ==
[2017-11-13 16:55] LABS: HEMATOCRIT 31.9 % (42.0-52.0); HEMOGLOBIN 10.6 g/dl (13.5-17.5); MEAN CORPUSCULAR HEMOGLOBIN 32.2 pg (27.0-33.0); MEAN CORPUSCULAR HGB CONC 33.2 g/dl (32.0-36.5); PLATELET COUNT, AUTOMATED 336 10^3/uL (150-450); RED BLOOD COUNT 3.29 10^6/uL (4.30-6.10); RED CELL DISTRIBUTION WIDTH 13.8 % (11.5-14.5); WHITE BLOOD COUNT 9.2 10^3/uL (4.0-10.0)
== END ==
LOC: SKLAB4 16:08
DX: R50.9 Fever, unspecified (principal)
CPT/HCPCS: 71045

== ENCOUNTER 2017-11-27 21:02 | Emergency (ER) | payer BC, MEDICAID, OTHER ==
[2017-11-27] MEDS: NS 1,000 ML IV (21:45)
[2017-11-27 22:09] LABS: BASO % 0.3 % (0.0-1.0); EOS # 0.1 10^3/uL (0.0-0.50); EOS % 1.1 % (0.0-3.0); HEMATOCRIT 31.7 % (42.0-52.0); HEMOGLOBIN 10.6 g/dl (13.5-17.5); IMMATURE GRANULOCYTE % 0.5 % (0-3.0); LYMPH # 1.5 10^3/uL (1.5-4.5); LYMPH % 12.5 % (24.0-44.0); MEAN CORPUSCULAR HEMOGLOBIN 32.1 pg (27.0-33.0); MEAN CORPUSCULAR HGB CONC 33.4 g/dl (32.0-36.5); MEAN CORPUSCULAR VOLUME 96.1 fl (80.0-96.0); MONO # 0.8 10^3/uL (0.0-0.8); MONO % 6.4 % (0.0-5.0); NEUTROPHILS # 9.4 10^3/uL (1.8-7.7); NEUTROPHILS % 79.2 % (36.0-66.0); PLATELET COUNT, AUTOMATED 318 10^3/uL (150-450); RED CELL DISTRIBUTION WIDTH 13.6 % (11.5-14.5); WHITE BLOOD COUNT 11.9 10^3/uL (4.0-10.0)
[2017-11-27 22:35] LABS: POS COUNT POS FLAG
[2017-11-27 22:40] LABS: ALBUMIN 3.4 GM/DL (3.2-5.2); ALBUMIN/GLOBULIN RATIO 0.83 (1.00-1.93); ALKALINE PHOSPHATASE 192 U/L (45-117); ALT/SGPT 32 U/L (12-78); ANION GAP 12 MEQ/L (8-16); AST/SGOT 13 U/L (7-37); BILIRUBIN,DIRECT 0.2 MG/DL (0.0-0.2); BILIRUBIN,TOTAL 0.4 MG/DL (0.2-1.0); BLOOD UREA NITROGEN 55 MG/DL (7-18); CALCIUM LEVEL 8.9 MG/DL (8.8-10.2); CARBON DIOXIDE LEVEL 18 MEQ/L (21-32); CHLORIDE LEVEL 102 MEQ/L (98-107); CREATININE FOR GFR 1.55 MG/DL (0.70-1.30); GLOMERULAR FILTRATION RATE 48.8 (>49); GLUCOSE, FASTING 87 MG/DL (70-100); POTASSIUM SERUM 4.8 MEQ/L (3.5-5.1); SODIUM LEVEL 132 MEQ/L (136-145); TOTAL PROTEIN 7.5 GM/DL (6.4-8.2)
[2017-11-27 23:20] LABS: KETONE, URINE AUTO RFX NEGATIVE (NEGATIVE); LEUKOCYTE ESTERASE UR AUTO RFX NEGATIVE (NEGATIVE); NITRITE, URINE AUTO RFX NEGATIVE (NEGATIVE); RBC, URINE AUTO RFX 3 /HPF (0-3); SPECIFIC GRAVITY UR AUTO RFX 1.015 (1.002-1.035); SQUAM EPITHELIAL CELL UR AURFX 0 /HPF (0-6); WBC, URINE AUTO RFX 1 /HPF (0-3)
== END 2017-11-28 00:01 | disposition home or self-care (01) ==
LOC: M ED 11-28 00:01
DX: B34.9 Viral infection, unspecified (principal); Z79.899 Other long term (current) drug therapy; Z88.0 Allergy status to penicillin; F17.210 Nicotine dependence, cigarettes, uncomplicated
CPT/HCPCS: 71045

== ENCOUNTER → 2017-11-28 | Outpatient (REF) | payer BC, MEDICARE | LOC: SKLAB4 10:11 | DX: Z93.1 Gastrostomy status (principal) ==

== ENCOUNTER → 2017-12-05 | Outpatient (REF) | payer BC, OTHER ==
[2017-12-05 10:21] LABS: ALBUMIN 3.4 GM/DL (3.2-5.2); ALBUMIN/GLOBULIN RATIO 0.89 (1.00-1.93); ALKALINE PHOSPHATASE 182 U/L (45-117); ALT/SGPT 28 U/L (12-78); ANION GAP 11 MEQ/L (8-16); AST/SGOT 17 U/L (7-37); BILIRUBIN,TOTAL 0.4 MG/DL (0.2-1.0); BLOOD UREA NITROGEN 34 MG/DL (7-18); CALCIUM LEVEL 8.8 MG/DL (8.8-10.2); CARBON DIOXIDE LEVEL 17 MEQ/L (21-32); CHLORIDE LEVEL 105 MEQ/L (98-107); GLOMERULAR FILTRATION RATE 54.8 (>49); GLUCOSE, FASTING 99 MG/DL (70-100); POTASSIUM SERUM 4.4 MEQ/L (3.5-5.1); SODIUM LEVEL 133 MEQ/L (136-145); TOTAL PROTEIN 7.2 GM/DL (6.4-8.2)
== END ==
LOC: SKLAB4 10:04
DX: Z93.1 Gastrostomy status (principal)
CPT/HCPCS: 80053

== ENCOUNTER → 2017-12-12 | Outpatient (REF) | payer BC, MEDICARE, MEDICAID ==
[2017-12-12 08:37] LABS: HEMOGLOBIN 12.4 g/dl (13.5-17.5); MEAN CORPUSCULAR HGB CONC 33.5 g/dl (32.0-36.5); MEAN CORPUSCULAR VOLUME 95.4 fl (80.0-96.0); PLATELET COUNT, AUTOMATED 346 10^3/uL (150-450); RED BLOOD COUNT 3.88 10^6/uL (4.30-6.10); RED CELL DISTRIBUTION WIDTH 13.3 % (11.5-14.5); WHITE BLOOD COUNT 9.8 10^3/uL (4.0-10.0)
[2017-12-12 09:11] LABS: ALBUMIN 3.9 GM/DL (3.2-5.2); ALBUMIN/GLOBULIN RATIO 0.89 (1.00-1.93); ALKALINE PHOSPHATASE 240 U/L (45-117); ALT/SGPT 40 U/L (12-78); ANION GAP 13 MEQ/L (8-16); AST/SGOT 22 U/L (7-37); BILIRUBIN,TOTAL 0.4 MG/DL (0.2-1.0); BLOOD UREA NITROGEN 71 MG/DL (7-18); CALCIUM LEVEL 8.9 MG/DL (8.8-10.2); CARBON DIOXIDE LEVEL 16 MEQ/L (21-32); CHLORIDE LEVEL 106 MEQ/L (98-107); CREATININE FOR GFR 1.91 MG/DL (0.70-1.30); GLOMERULAR FILTRATION RATE 38.3 (>49); GLUCOSE, FASTING 94 MG/DL (70-100); POTASSIUM SERUM 5.3 MEQ/L (3.5-5.1); SODIUM LEVEL 135 MEQ/L (136-145); TOTAL PROTEIN 8.3 GM/DL (6.4-8.2)
== END ==
LOC: SKLAB4 10:20
DX: Z93.1 Gastrostomy status (principal); J44.9 Chronic obstructive pulmonary disease, unspecified
CPT/HCPCS: 80053

== ENCOUNTER → 2017-12-17 | Outpatient (REF) | payer BC, MEDICARE, MEDICAID ==
[2017-12-17 07:53] LABS: ANION GAP 10 MEQ/L (8-16); BLOOD UREA NITROGEN 70 MG/DL (7-18); CALCIUM LEVEL 8.2 MG/DL (8.8-10.2); CARBON DIOXIDE LEVEL 18 MEQ/L (21-32); CHLORIDE LEVEL 101 MEQ/L (98-107); CREATININE FOR GFR 1.94 MG/DL (0.70-1.30); GLOMERULAR FILTRATION RATE 37.6 (>49); GLUCOSE, FASTING 88 MG/DL (70-100); POTASSIUM SERUM 4.4 MEQ/L (3.5-5.1); SODIUM LEVEL 129 MEQ/L (136-145)
== END ==
LOC: SKLAB4 11:34
DX: Z93.1 Gastrostomy status (principal)
CPT/HCPCS: 80048

== ENCOUNTER → 2017-12-19 | Outpatient (REF) | payer BC, OTHER ==
[2017-12-19 10:21] LABS: ALBUMIN 3.7 GM/DL (3.2-5.2); ALBUMIN/GLOBULIN RATIO 0.93 (1.00-1.93); ALKALINE PHOSPHATASE 209 U/L (45-117); ALT/SGPT 48 U/L (12-78); ANION GAP 12 MEQ/L (8-16); AST/SGOT 26 U/L (7-37); BILIRUBIN,TOTAL 0.4 MG/DL (0.2-1.0); BLOOD UREA NITROGEN 74 MG/DL (7-18); CARBON DIOXIDE LEVEL 17 MEQ/L (21-32); CHLORIDE LEVEL 104 MEQ/L (98-107); CREATININE FOR GFR 1.83 MG/DL (0.70-1.30); GLOMERULAR FILTRATION RATE 40.3 (>49); GLUCOSE, FASTING 102 MG/DL (70-100); POTASSIUM SERUM 5.1 MEQ/L (3.5-5.1); SODIUM LEVEL 133 MEQ/L (136-145); TOTAL PROTEIN 7.7 GM/DL (6.4-8.2)
== END ==
LOC: SKLAB4 09:58
DX: Z93.1 Gastrostomy status (principal); J44.9 Chronic obstructive pulmonary disease, unspecified
CPT/HCPCS: 80053

== ENCOUNTER → 2017-12-20 | Outpatient (REF) | payer BC, MEDICARE, MEDICAID ==
[2017-12-20 14:58] LABS: ANION GAP 13 MEQ/L (8-16); BLOOD UREA NITROGEN 78 MG/DL (7-18); CALCIUM LEVEL 8.1 MG/DL (8.8-10.2); CARBON DIOXIDE LEVEL 18 MEQ/L (21-32); CHLORIDE LEVEL 100 MEQ/L (98-107); GLOMERULAR FILTRATION RATE 30.9 (>49); GLUCOSE, FASTING 112 MG/DL (70-100); PHOSPHORUS LEVEL 3.4 MG/DL (2.5-4.9); POTASSIUM SERUM 4.5 MEQ/L (3.5-5.1); SODIUM LEVEL 131 MEQ/L (136-145)
== END ==
LOC: SKLAB4 13:45
DX: I48.91 Unspecified atrial fibrillation (principal); J44.9 Chronic obstructive pulmonary disease, unspecified; Z98.890 Other specified postprocedural states
CPT/HCPCS: 80069

== ENCOUNTER → 2017-12-23 | Outpatient (REF) | payer BC, MEDICAID, MEDICARE ==
[2017-12-23 10:44] LABS: ANION GAP 14 MEQ/L (8-16); BLOOD UREA NITROGEN 86 MG/DL (7-18); CALCIUM LEVEL 7.4 MG/DL (8.8-10.2); CARBON DIOXIDE LEVEL 12 MEQ/L (21-32); CHLORIDE LEVEL 104 MEQ/L (98-107); CREATININE FOR GFR 2.02 MG/DL (0.70-1.30); GLOMERULAR FILTRATION RATE 35.9 (>49); GLUCOSE, FASTING 132 MG/DL (70-100); POTASSIUM SERUM 4.6 MEQ/L (3.5-5.1); SODIUM LEVEL 130 MEQ/L (136-145)
== END ==
LOC: SKLAB4 06:18
DX: Z79.899 Other long term (current) drug therapy (principal)
CPT/HCPCS: 80048

== ENCOUNTER 2017-12-26 13:23 | Observation (INO) | payer BC, MEDICAID ==
[2017-12-26 15:23] LABS: BASO # 0.1 10^3/uL (0.0-0.2); BASO % 0.5 % (0.0-1.0); EOS # 0.2 10^3/uL (0.0-0.50); EOS % 1.3 % (0.0-3.0); HEMATOCRIT 34.7 % (42.0-52.0); HEMOGLOBIN 12.2 g/dl (13.5-17.5); IMMATURE GRANULOCYTE % 1.2 % (0-3.0); LYMPH # 0.7 10^3/uL (1.5-4.5); LYMPH % 6.1 % (24.0-44.0); MEAN CORPUSCULAR HEMOGLOBIN 32.3 pg (27.0-33.0); MEAN CORPUSCULAR HGB CONC 35.2 g/dl (32.0-36.5); MEAN CORPUSCULAR VOLUME 91.8 fl (80.0-96.0); MONO # 1.1 10^3/uL (0.0-0.8); MONO % 9.2 % (0.0-5.0); NEUTROPHILS # 9.7 10^3/uL (1.8-7.7); NEUTROPHILS % 81.7 % (36.0-66.0); PLATELET COUNT, AUTOMATED 378 10^3/uL (150-450); RED BLOOD COUNT 3.78 10^6/uL (4.30-6.10); RED CELL DISTRIBUTION WIDTH 13.4 % (11.5-14.5); WHITE BLOOD COUNT 11.9 10^3/uL (4.0-10.0)
[2017-12-26 15:35] LABS: INR 1.21; PROTHROMBIN TIME 15.5 SECONDS (12.1-14.4)
[2017-12-26 15:36] LABS: PARTIAL THROMBOPLASTIN TIME 31.4 SECONDS (25.4-37.6)
[2017-12-26 15:44] LABS: LACTIC ACID SEPSIS PROTOCOL 1.7 MMOL/L (0.4-2.0)
[2017-12-26 15:50] LABS: ALBUMIN 3.8 GM/DL (3.2-5.2); ALBUMIN/GLOBULIN RATIO 0.88 (1.00-1.93); ALKALINE PHOSPHATASE 193 U/L (45-117); ALT/SGPT 51 U/L (12-78); AMYLASE 52 U/L (25-115); ANION GAP 12 MEQ/L (8-16); AST/SGOT 28 U/L (7-37); BILIRUBIN,DIRECT 0.3 MG/DL (0.0-0.2); BILIRUBIN,TOTAL 0.5 MG/DL (0.2-1.0); BLOOD UREA NITROGEN 88 MG/DL (7-18); CALCIUM LEVEL 7.5 MG/DL (8.8-10.2); CARBON DIOXIDE LEVEL 18 MEQ/L (21-32); CHLORIDE LEVEL 99 MEQ/L (98-107); CREATININE FOR GFR 1.96 MG/DL (0.70-1.30); GLOMERULAR FILTRATION RATE 37.2 (>49); GLUCOSE, FASTING 115 MG/DL (70-100); LIPASE 153 U/L (73-393); MAGNESIUM LEVEL 0.3 MG/DL (1.8-2.4); POTASSIUM SERUM 5.7 MEQ/L (3.5-5.1); SODIUM LEVEL 129 MEQ/L (136-145); TOTAL PROTEIN 8.1 GM/DL (6.4-8.2)
[2017-12-26] MEDS: NS 1,000 ML IV ×3 (16:15→19:00)
[2017-12-26] MEDS: MAG SULF 1GM/100ML (MAG RUN) 1 GM in APPROPRIATE DILUENT 1 EA IV ×3 (17:15→20:39)
[2017-12-26] MEDS ORDERED: LOPERAMIDE 2 MG CAP GT (19:15)
[2017-12-26] MEDS: ALBUTEROL SULFATE 2.5 MG/0.5 ML INH NEB SOLN INH (20:00)
[2017-12-26] MEDS: CHOLESTYRAMINE 4 GM PWD PKT GT (21:00)
[2017-12-26] MEDS: OLANZapine 2.5MG TABLET GT (23:53)
[2017-12-26] MEDS: LORazepam 1 MG TAB GT (23:53)
[2017-12-27] MEDS ORDERED: NEOSPORIN OINT 0.9 GM PKT (FLOOR STOCK) As Ordered (03:09)
[2017-12-27 06:48] LABS: ANION GAP 12 MEQ/L (8-16); BLOOD UREA NITROGEN 64 MG/DL (7-18); CALCIUM LEVEL 7.2 MG/DL (8.8-10.2); CARBON DIOXIDE LEVEL 16 MEQ/L (21-32); CHLORIDE LEVEL 102 MEQ/L (98-107); CREATININE FOR GFR 1.28 MG/DL (0.70-1.30); GLOMERULAR FILTRATION RATE > 60.0 (>49); GLUCOSE, FASTING 91 MG/DL (70-100); MAGNESIUM LEVEL 1.2 MG/DL (1.8-2.4); POTASSIUM SERUM 4.3 MEQ/L (3.5-5.1); SODIUM LEVEL 130 MEQ/L (136-145)
[2017-12-27] MEDS: ALBUTEROL SULFATE 2.5 MG/0.5 ML INH NEB SOLN INH (08:00)
[2017-12-27 08:05] LABS: HEMATOCRIT 29.5 % (42.0-52.0); MEAN CORPUSCULAR HEMOGLOBIN 31.9 pg (27.0-33.0); MEAN CORPUSCULAR HGB CONC 34.6 g/dl (32.0-36.5); MEAN CORPUSCULAR VOLUME 92.2 fl (80.0-96.0); PLATELET COUNT, AUTOMATED 345 10^3/uL (150-450); RED CELL DISTRIBUTION WIDTH 13.2 % (11.5-14.5); WHITE BLOOD COUNT 9.2 10^3/uL (4.0-10.0)
[2017-12-27 08:09] LABS: HEMOGLOBIN 10.2 g/dl (13.5-17.5)
[2017-12-27] MEDS ORDERED: PILL CRUSHER/CUTTER 1 EACH XX (08:55)
[2017-12-27] MEDS: MAG SULF 1GM/100ML (MAG RUN) 1 GM in APPROPRIATE DILUENT 1 EA IV ×2 (08:57→10:00)
[2017-12-27] MEDS: CHOLESTYRAMINE 4 GM PWD PKT GT (08:57)
[2017-12-27] MEDS: LORazepam 1 MG TAB GT (08:57)
[2017-12-27] MEDS: MIRTAZAPINE 15 MG TAB GT (08:57)
[2017-12-27] MEDS: CALCIUM CARB SUSP 1250MG/5ML UNIT DOSE CUP PO (08:57)
[2017-12-27] MEDS: FOLIC ACID 1 MG TAB GT (08:57)
[2017-12-27] MEDS: THIAMINE 100 MG TAB GT (08:58)
[2017-12-27] MEDS: AMIODARONE 200 MG TAB (PACERONE) FT (08:58)
[2017-12-27] MEDS: MAGNESIUM OXIDE 400 MG TAB (MAG-OX) PO (08:58)
[2017-12-27] MEDS ORDERED: OLANZapine 5 MG TAB GT (14:00)
== END 2017-12-27 11:42 ==
LOC: M ED 13:23 → M ED INP 18:49
DX: E83.42 Hypomagnesemia (principal); E87.5 Hyperkalemia; E83.52 Hypercalcemia; F03.90 Unspecified dementia, unspecified severity, without behavioral disturbance, psychotic disturbance, mood disturbance, and anxiety; I48.91 Unspecified atrial fibrillation; Z90.49 Acquired absence of other specified parts of digestive tract; Z65.8 Other specified problems related to psychosocial circumstances; Z79.899 Other long term (current) drug therapy
CPT/HCPCS: J3475

== ENCOUNTER → 2017-12-26 | Outpatient (REF) | payer BC, MEDICARE, MEDICAID ==
[2017-12-26 08:45] LABS: ALBUMIN 3.6 GM/DL (3.2-5.2); ALBUMIN/GLOBULIN RATIO 0.78 (1.00-1.93); ALKALINE PHOSPHATASE 163 U/L (45-117); ALT/SGPT 42 U/L (12-78); ANION GAP 13 MEQ/L (8-16); AST/SGOT 24 U/L (7-37); BILIRUBIN,TOTAL 0.4 MG/DL (0.2-1.0); BLOOD UREA NITROGEN 87 MG/DL (7-18); CALCIUM LEVEL 7.1 MG/DL (8.8-10.2); CARBON DIOXIDE LEVEL 16 MEQ/L (21-32); CHLORIDE LEVEL 98 MEQ/L (98-107); CREATININE FOR GFR 1.81 MG/DL (0.70-1.30); GLOMERULAR FILTRATION RATE 40.8 (>49); GLUCOSE, FASTING 102 MG/DL (70-100); POTASSIUM SERUM 4.4 MEQ/L (3.5-5.1); SODIUM LEVEL 127 MEQ/L (136-145); TOTAL PROTEIN 8.2 GM/DL (6.4-8.2)
[2017-12-26 12:34] LABS: MAGNESIUM LEVEL 0.3 MG/DL (1.8-2.4)
== END ==
LOC: SKLAB4 10:31
DX: Z93.1 Gastrostomy status (principal); Z79.899 Other long term (current) drug therapy
CPT/HCPCS: 83735

== ENCOUNTER → 2017-12-29 | Outpatient (REF) | payer BC, MEDICAID ==
[2017-12-29 08:50] LABS: ALBUMIN 3.3 GM/DL (3.2-5.2); ANION GAP 10 MEQ/L (8-16); BLOOD UREA NITROGEN 37 MG/DL (7-18); CALCIUM LEVEL 9.5 MG/DL (8.8-10.2); CARBON DIOXIDE LEVEL 19 MEQ/L (21-32); CHLORIDE LEVEL 102 MEQ/L (98-107); CREATININE FOR GFR 1.14 MG/DL (0.70-1.30); GLOMERULAR FILTRATION RATE > 60.0 (>49); GLUCOSE, FASTING 90 MG/DL (70-100); MAGNESIUM LEVEL 1.5 MG/DL (1.8-2.4); POTASSIUM SERUM 5.1 MEQ/L (3.5-5.1); SODIUM LEVEL 131 MEQ/L (136-145)
== END ==
LOC: SKLAB4 10:23
DX: Z93.1 Gastrostomy status (principal)
CPT/HCPCS: 83735

== ENCOUNTER → 2017-12-31 | Outpatient (REF) | payer BC, MEDICAID ==
[2017-12-31 11:32] LABS: ANION GAP 9 MEQ/L (8-16); BLOOD UREA NITROGEN 32 MG/DL (7-18); CALCIUM LEVEL 9.8 MG/DL (8.8-10.2); CARBON DIOXIDE LEVEL 18 MEQ/L (21-32); CHLORIDE LEVEL 102 MEQ/L (98-107); CREATININE FOR GFR 1.15 MG/DL (0.70-1.30); GLOMERULAR FILTRATION RATE > 60.0 (>49); GLUCOSE, FASTING 91 MG/DL (70-100); POTASSIUM SERUM 5.1 MEQ/L (3.5-5.1); SODIUM LEVEL 129 MEQ/L (136-145)
== END ==
LOC: SKLAB4 10:21
DX: R79.89 Other specified abnormal findings of blood chemistry (principal); Z93.1 Gastrostomy status
CPT/HCPCS: 80048

== ENCOUNTER → 2018-01-01 | Outpatient (REF) | payer BC, MEDICAID ==
[2018-01-01 10:46] LABS: BASO % 0.3 % (0.0-1.0); EOS # 0.2 10^3/uL (0.0-0.50); EOS % 1.8 % (0.0-3.0); HEMATOCRIT 29.8 % (42.0-52.0); HEMOGLOBIN 10.1 g/dl (13.5-17.5); IMMATURE GRANULOCYTE % 1.1 % (0-3.0); LYMPH # 0.8 10^3/uL (1.5-4.5); LYMPH % 7.5 % (24.0-44.0); MEAN CORPUSCULAR HGB CONC 33.9 g/dl (32.0-36.5); MEAN CORPUSCULAR VOLUME 94.3 fl (80.0-96.0); MONO % 9.4 % (0.0-5.0); NEUTROPHILS # 8.5 10^3/uL (1.8-7.7); NEUTROPHILS % 79.9 % (36.0-66.0); PLATELET COUNT, AUTOMATED 366 10^3/uL (150-450); RED BLOOD COUNT 3.16 10^6/uL (4.30-6.10); RED CELL DISTRIBUTION WIDTH 13.3 % (11.5-14.5); WHITE BLOOD COUNT 10.6 10^3/uL (4.0-10.0)
== END ==
LOC: SKLAB4 10:02
DX: R50.9 Fever, unspecified (principal)
CPT/HCPCS: 71045

== ENCOUNTER → 2018-01-02 | Outpatient (REF) | payer BC, MEDICAID ==
[2018-01-02 09:35] LABS: ALBUMIN 3.1 GM/DL (3.2-5.2); ALBUMIN/GLOBULIN RATIO 0.78 (1.00-1.93); ALKALINE PHOSPHATASE 191 U/L (45-117); ALT/SGPT 41 U/L (12-78); ANION GAP 11 MEQ/L (8-16); AST/SGOT 19 U/L (7-37); BILIRUBIN,TOTAL 0.3 MG/DL (0.2-1.0); BLOOD UREA NITROGEN 33 MG/DL (7-18); CARBON DIOXIDE LEVEL 18 MEQ/L (21-32); CHLORIDE LEVEL 103 MEQ/L (98-107); CREATININE FOR GFR 1.13 MG/DL (0.70-1.30); GLOMERULAR FILTRATION RATE > 60.0 (>49); GLUCOSE, FASTING 130 MG/DL (70-100); POTASSIUM SERUM 4.7 MEQ/L (3.5-5.1); SODIUM LEVEL 132 MEQ/L (136-145); TOTAL PROTEIN 7.1 GM/DL (6.4-8.2)
== END ==
LOC: SKLAB4 09:54
DX: Z93.1 Gastrostomy status (principal); Z79.899 Other long term (current) drug therapy
CPT/HCPCS: 80053

== ENCOUNTER 2018-01-06 15:44 | Inpatient (IN) | payer BC, MEDICAID ==
[2018-01-06 14:29] LABS: BASO # 0.1 10^3/uL (0.0-0.2); BASO % 0.5 % (0.0-1.0); EOS # 0.2 10^3/uL (0.0-0.50); EOS % 1.7 % (0.0-3.0); HEMATOCRIT 30.5 % (42.0-52.0); HEMOGLOBIN 10.4 g/dl (13.5-17.5); IMMATURE GRANULOCYTE % 1.7 % (0-3.0); LYMPH # 0.9 10^3/uL (1.5-4.5); LYMPH % 6.8 % (24.0-44.0); MEAN CORPUSCULAR HEMOGLOBIN 32.1 pg (27.0-33.0); MEAN CORPUSCULAR HGB CONC 34.1 g/dl (32.0-36.5); MEAN CORPUSCULAR VOLUME 94.1 fl (80.0-96.0); MONO # 1.3 10^3/uL (0.0-0.8); MONO % 9.7 % (0.0-5.0); NEUTROPHILS # 10.8 10^3/uL (1.8-7.7); NEUTROPHILS % 79.6 % (36.0-66.0); PLATELET COUNT, AUTOMATED 478 10^3/uL (150-450); RED BLOOD COUNT 3.24 10^6/uL (4.30-6.10); RED CELL DISTRIBUTION WIDTH 13.2 % (11.5-14.5); WHITE BLOOD COUNT 13.6 10^3/uL (4.0-10.0)
[2018-01-06] MEDS: NS 1,000 ML IV ×4 (14:40→19:48)
[2018-01-06] MEDS: ACETAMINOPHEN SUSP DYE FREE 160 MG/5 ML UDC PO (14:41)
[2018-01-06 14:53] LABS: LACTIC ACID SEPSIS PROTOCOL 1.9 MMOL/L (0.4-2.0)
[2018-01-06 14:57] LABS: ABG PARTIAL PRESSURE CO2 26.1 mmHg (35.0-45.0); ABG PARTIAL PRESSURE O2 91.1 mmHg (75.0-100.0); ABG TOTAL CO2 16.5 MEQ/L (23.0-31.0); ABG pH (ARTERIAL) 7.397 UNITS (7.350-7.450)
[2018-01-06 14:58] LABS: ABG BASE EXCESS -7.8 (-2.0-2.0); ABG HCO3 15.7 MEQ/L (22.0-26.0); ABG O2 SATURATION 97.5 % (95.0-99.0); ABG STANDARD HCO3 18.1 MEQ/L (22.0-26.0)
[2018-01-06 15:08] LABS: ALBUMIN/GLOBULIN RATIO 0.58 (1.00-1.93); ALKALINE PHOSPHATASE 272 U/L (45-117); ALT/SGPT 133 U/L (12-78); ANION GAP 8 MEQ/L (8-16); AST/SGOT 53 U/L (7-37); BILIRUBIN,DIRECT 0.3 MG/DL (0.0-0.2); BILIRUBIN,TOTAL 0.5 MG/DL (0.2-1.0); BLOOD UREA NITROGEN 38 MG/DL (7-18); CALCIUM LEVEL 9.8 MG/DL (8.8-10.2); CARBON DIOXIDE LEVEL 20 MEQ/L (21-32); CHLORIDE LEVEL 97 MEQ/L (98-107); CPK CREATINE PHOSPHOKINASE 25 U/L (39-308); CREATININE FOR GFR 1.13 MG/DL (0.70-1.30); GLOMERULAR FILTRATION RATE > 60.0 (>49); GLUCOSE, FASTING 112 MG/DL (70-100); MAGNESIUM LEVEL 0.8 MG/DL (1.8-2.4); NT-PRO BNP 243 PG/ML (<125); POTASSIUM SERUM 5.1 MEQ/L (3.5-5.1); SODIUM LEVEL 125 MEQ/L (136-145); TOTAL PROTEIN 8.2 GM/DL (6.4-8.2); TROPONIN I < 0.02 NG/ML (< 0.10)
[2018-01-06] MEDS: MAG SULF 1GM/100ML (MAG RUN) 1 GM in APPROPRIATE DILUENT 1 EA IV ×3 (15:27→22:30)
[2018-01-06] MEDS: IBUPROFEN 100 MG/5 ML SUSP UDC DYE FREE PO (15:52)
[2018-01-06] MEDS ORDERED: VANCOMYCIN HCL 1,000 MG, VIAL MATE ADAPTER 1 EACH in D5W 250 ML IV (19:15)
[2018-01-06] MEDS: VANCOMYCIN HCL 1,000 MG, VIAL MATE ADAPTER 1 EACH in D5W 250 ML IV (19:16)
[2018-01-06 20:26] LABS: URIC ACID 5.5 MG/DL (3.5-7.2)
[2018-01-06 20:45] LABS: ANION GAP 9 MEQ/L (8-16); BLOOD UREA NITROGEN 34 MG/DL (7-18); CALCIUM LEVEL 8.6 MG/DL (8.8-10.2); CARBON DIOXIDE LEVEL 17 MEQ/L (21-32); CHLORIDE LEVEL 106 MEQ/L (98-107); CPK CREATINE PHOSPHOKINASE 24 U/L (39-308); CREATININE FOR GFR 1.07 MG/DL (0.70-1.30); GLOMERULAR FILTRATION RATE > 60.0 (>49); GLUCOSE, FASTING 132 MG/DL (70-100); MAGNESIUM LEVEL 1.4 MG/DL (1.8-2.4); POTASSIUM SERUM 4.7 MEQ/L (3.5-5.1); SODIUM LEVEL 132 MEQ/L (136-145); TROPONIN I < 0.02 NG/ML (< 0.10)
[2018-01-06] MEDS: CEFEPIME HCL 2 GM in D5W MINI-BAG PLUS 50 ML IV (21:05)
[2018-01-06 21:30] LABS: KETONE, URINE AUTO RFX NEGATIVE (NEGATIVE); LEUKOCYTE ESTERASE UR AUTO RFX NEGATIVE (NEGATIVE); MUCUS, URINE RFX SMALL (NEGATIVE); NITRITE, URINE AUTO RFX NEGATIVE (NEGATIVE); RBC, URINE AUTO RFX 1 /HPF (0-3); SPECIFIC GRAVITY UR AUTO RFX 1.005 (1.002-1.035); SQUAM EPITHELIAL CELL UR AURFX 0 /HPF (0-6); WBC, URINE AUTO RFX 1 /HPF (0-3)
[2018-01-06] MEDS ORDERED: PILL CRUSHER/CUTTER 1 EACH XX (22:00)
[2018-01-06] MEDS: LORazepam 1 MG TAB PEG (22:30)
[2018-01-06] MEDS: MAGNESIUM OXIDE 400 MG TAB (MAG-OX) PEG (22:30)
[2018-01-06] MEDS: OMEPRAZOLE 20 MG CAP PO (22:31)
[2018-01-06] MEDS: OLANZapine 5 MG TAB PEG (22:31)
[2018-01-06] MEDS: LOPERAMIDE 2 MG CAP PEG (22:44)
[2018-01-06] MEDS: ACETAMINOPHEN TAB 650MG DOSE (2X325MG) PEG (23:04)
[2018-01-06] MEDS: ALBUTEROL SULFATE 2.5 MG/0.5 ML INH NEB SOLN INH (23:20)
[2018-01-07 02:22] LABS: ANION GAP 8 MEQ/L (8-16); BLOOD UREA NITROGEN 30 MG/DL (7-18); CALCIUM LEVEL 8.7 MG/DL (8.8-10.2); CARBON DIOXIDE LEVEL 17 MEQ/L (21-32); CHLORIDE LEVEL 108 MEQ/L (98-107); CPK CREATINE PHOSPHOKINASE 31 U/L (39-308); CREATININE FOR GFR 0.95 MG/DL (0.70-1.30); GLOMERULAR FILTRATION RATE > 60.0 (>49); GLUCOSE, FASTING 102 MG/DL (70-100); MAGNESIUM LEVEL 1.6 MG/DL (1.8-2.4); MB/CK RELATIVE INDEX 4.84 (< OR =4); SODIUM LEVEL 133 MEQ/L (136-145); TROPONIN I 0.08 NG/ML (< 0.10)
[2018-01-07] MEDS: VANCOMYCIN HCL 750 MG, VIAL MATE ADAPTER 1 EACH in D5W 250 ML IV ×2 (02:37→16:00)
[2018-01-07] MEDS: LOPERAMIDE 2 MG CAP PEG ×4 (05:56→22:35)
[2018-01-07] MEDS: NS 1,000 ML IV ×3 (05:57→18:15)
[2018-01-07] MEDS: CHOLESTYRAMINE 4 GM PWD PKT PEG ×4 (05:57→19:00)
[2018-01-07 06:23] LABS: HEMATOCRIT 27.3 % (42.0-52.0); HEMOGLOBIN 9.2 g/dl (13.5-17.5); MEAN CORPUSCULAR HEMOGLOBIN 31.5 pg (27.0-33.0); MEAN CORPUSCULAR HGB CONC 33.7 g/dl (32.0-36.5); MEAN CORPUSCULAR VOLUME 93.5 fl (80.0-96.0); PLATELET COUNT, AUTOMATED 407 10^3/uL (150-450); RED BLOOD COUNT 2.92 10^6/uL (4.30-6.10); RED CELL DISTRIBUTION WIDTH 13.2 % (11.5-14.5); WHITE BLOOD COUNT 12.5 10^3/uL (4.0-10.0)
[2018-01-07 06:53] LABS: ALBUMIN 2.3 GM/DL (3.2-5.2); ALBUMIN/GLOBULIN RATIO 0.55 (1.00-1.93); ALKALINE PHOSPHATASE 221 U/L (45-117); ALT/SGPT 96 U/L (12-78); ANION GAP 10 MEQ/L (8-16); AST/SGOT 40 U/L (7-37); BILIRUBIN,TOTAL 0.5 MG/DL (0.2-1.0); BLOOD UREA NITROGEN 28 MG/DL (7-18); C REACTIVE PROTEIN QUANTITATIV 5.95 MG/DL (0.00-0.30); CALCIUM LEVEL 8.6 MG/DL (8.8-10.2); CARBON DIOXIDE LEVEL 17 MEQ/L (21-32); CHLORIDE LEVEL 105 MEQ/L (98-107); CREATININE FOR GFR 0.91 MG/DL (0.70-1.30); GLOMERULAR FILTRATION RATE > 60.0 (>49); GLUCOSE, FASTING 100 MG/DL (70-100); MAGNESIUM LEVEL 1.5 MG/DL (1.8-2.4); POTASSIUM SERUM 4.2 MEQ/L (3.5-5.1); SODIUM LEVEL 132 MEQ/L (136-145); TOTAL PROTEIN 6.5 GM/DL (6.4-8.2)
[2018-01-07] MEDS: ALBUTEROL SULFATE 2.5 MG/0.5 ML INH NEB SOLN INH ×3 (07:26→20:00)
[2018-01-07] MEDS: AMIODARONE 200 MG TAB (PACERONE) PEG (09:24)
[2018-01-07] MEDS: OMEPRAZOLE 20 MG CAP PO ×2 (09:25→22:34)
[2018-01-07] MEDS: MIRTAZAPINE 15 MG TAB PEG (09:25)
[2018-01-07] MEDS: MAGNESIUM OXIDE 400 MG TAB (MAG-OX) PEG ×3 (09:25→22:35)
[2018-01-07] MEDS: FOLIC ACID 1 MG TAB PEG (09:25)
[2018-01-07] MEDS: THIAMINE 100 MG TAB PEG (09:25)
[2018-01-07] MEDS: LORazepam 1 MG TAB PEG ×2 (09:25→22:34)
[2018-01-07] MEDS: HEPARIN SOD (PORCINE) 5000 UNITS/ML VIAL SC (09:26)
[2018-01-07] MEDS: CEFEPIME HCL 1 GM in D5W MINI-BAG PLUS 50 ML IV (09:27)
[2018-01-07 11:56] LABS: BEDSIDE GLUCOSE 122 MG/DL (80-115)
[2018-01-07 13:09] LABS: ANION GAP 11 MEQ/L (8-16); BLOOD UREA NITROGEN 25 MG/DL (7-18); CALCIUM LEVEL 8.3 MG/DL (8.8-10.2); CARBON DIOXIDE LEVEL 16 MEQ/L (21-32); CHLORIDE LEVEL 106 MEQ/L (98-107); CREATININE FOR GFR 0.94 MG/DL (0.70-1.30); GLOMERULAR FILTRATION RATE > 60.0 (>49); GLUCOSE, FASTING 125 MG/DL (70-100); MAGNESIUM LEVEL 1.4 MG/DL (1.8-2.4); POTASSIUM SERUM 3.9 MEQ/L (3.5-5.1); SODIUM LEVEL 133 MEQ/L (136-145)
[2018-01-07] MEDS: ACETAMINOPHEN TAB 650MG DOSE (2X325MG) PEG (13:55)
[2018-01-07] MEDS: OLANZapine 2.5MG TABLET PEG (13:58)
[2018-01-07] MEDS: MAG SULF 1GM/100ML (MAG RUN) 1 GM in APPROPRIATE DILUENT 1 EA IV ×3 (14:30→18:15)
[2018-01-07 17:46] LABS: ANION GAP 9 MEQ/L (8-16); BLOOD UREA NITROGEN 26 MG/DL (7-18); CALCIUM LEVEL 7.9 MG/DL (8.8-10.2); CARBON DIOXIDE LEVEL 18 MEQ/L (21-32); CHLORIDE LEVEL 106 MEQ/L (98-107); CREATININE FOR GFR 0.95 MG/DL (0.70-1.30); GLOMERULAR FILTRATION RATE > 60.0 (>49); GLUCOSE, FASTING 131 MG/DL (70-100); MAGNESIUM LEVEL 2.1 MG/DL (1.8-2.4); POTASSIUM SERUM 3.9 MEQ/L (3.5-5.1); SODIUM LEVEL 133 MEQ/L (136-145)
[2018-01-07 17:47] LABS: LACTIC ACID SEPSIS PROTOCOL 0.9 MMOL/L (0.4-2.0)
[2018-01-07] MEDS ORDERED: SCOPOLAMINE 1MG TRANSDERMAL PATCH TOP (19:30)
[2018-01-07] MEDS: LORazepam 2 MG/ML VIAL (J2060) IV (20:19)
[2018-01-07] MEDS: OLANZapine 5 MG TAB PEG (22:34)
[2018-01-08] MEDS: CHOLESTYRAMINE 4 GM PWD PKT PEG (06:03)
[2018-01-08] MEDS: LOPERAMIDE 2 MG CAP PEG (06:03)
[2018-01-08] MEDS: ALBUTEROL SULFATE 2.5 MG/0.5 ML INH NEB SOLN INH (08:00)
[2018-01-08] MEDS: ACETAMINOPHEN TAB 650MG DOSE (2X325MG) PEG (18:20)
[2018-01-08] MEDS: LORazepam 2 MG/ML VIAL (J2060) IV (18:27)
[2018-01-09] MEDS: LORazepam 2 MG/ML VIAL (J2060) IV ×2 (03:01→20:36)
[2018-01-09] MEDS: ACETAMINOPHEN TAB 650MG DOSE (2X325MG) PEG (09:17)
[2018-01-10] MEDS: ACETAMINOPHEN TAB 650MG DOSE (2X325MG) PEG ×2 (01:37→08:53)
[2018-01-12] MEDS: ACETAMINOPHEN TAB 650MG DOSE (2X325MG) PEG ×2 (10:44→21:38)
[2018-01-13] MEDS: MORPHINE 4 MG/ML 1ML VIAL/SYRINGE (J2270) IV (06:54)
[2018-01-13] MEDS: LORazepam 2 MG/ML VIAL (J2060) IV (11:37)
[2018-01-13] MEDS: MORPHINE 10MG/0.5ML ORAL CONCENTRATE SOLUTION U/D SL (17:59)
[2018-01-14] MEDS: LORazepam 2 MG/ML VIAL (J2060) IV ×3 (02:14→20:55)
[2018-01-14] MEDS: MORPHINE 4 MG/ML 1ML VIAL/SYRINGE (J2270) IV ×6 (07:17→20:56)
[2018-01-14] MEDS ORDERED: ONDANSETRON 4MG/2ML VIAL (J2405) IV (08:00)
[2018-01-15] MEDS: LORazepam 2 MG/ML VIAL (J2060) IV ×5 (00:48→11:54)
[2018-01-15] MEDS: MORPHINE 4 MG/ML 1ML VIAL/SYRINGE (J2270) IV ×6 (00:48→15:59)
[2018-01-16] MEDS: ONDANSETRON 4MG/2ML VIAL (J2405) IV (01:20)
[2018-01-16] MEDS: MORPHINE 4 MG/ML 1ML VIAL/SYRINGE (J2270) IV ×3 (01:20→17:14)
[2018-01-16] MEDS: LORazepam 2 MG/ML VIAL (J2060) IV (03:29)
[2018-01-17] MEDS: LORazepam 2 MG/ML VIAL (J2060) IV (08:52)
[2018-01-17] MEDS: ONDANSETRON 4MG/2ML VIAL (J2405) IV (20:02)
[2018-01-17] MEDS: MORPHINE 10MG/0.5ML ORAL CONCENTRATE SOLUTION U/D SL (21:31)
[2018-01-18] MEDS: MORPHINE 10MG/0.5ML ORAL CONCENTRATE SOLUTION U/D SL ×4 (02:53→15:07)
[2018-01-18] MEDS: ONDANSETRON 4 MG ORAL DISINTEGRATING TAB (Q0162 PER 1MG) SL (04:20)
[2018-01-18] MEDS: LORazepam 1 MG TAB PO ×2 (04:20→23:50)
[2018-01-19] MEDS: MORPHINE 10MG/0.5ML ORAL CONCENTRATE SOLUTION U/D SL ×2 (01:54→23:11)
[2018-01-19] MEDS: LORazepam 1 MG TAB PO (06:38)
[2018-01-19] MEDS: ONDANSETRON 4 MG ORAL DISINTEGRATING TAB (Q0162 PER 1MG) SL (16:40)
[2018-01-20] MEDS: LORazepam 1 MG TAB PO ×2 (00:06→05:01)
[2018-01-20] MEDS: MORPHINE 10MG/0.5ML ORAL CONCENTRATE SOLUTION U/D SL ×4 (01:18→23:01)
[2018-01-20] MEDS: chlorproMAZINE 25 MG TAB (Q0161) PO (23:02)
[2018-01-21] MEDS: MORPHINE 10MG/0.5ML ORAL CONCENTRATE SOLUTION U/D SL ×3 (04:44→23:03)
[2018-01-22] MEDS: LORazepam 1 MG TAB PO ×2 (01:14→11:49)
[2018-01-22] MEDS: MORPHINE 10MG/0.5ML ORAL CONCENTRATE SOLUTION U/D SL (10:28)
[2018-01-22] MEDS: POLYVINYL ALCOHOL OPHTH SOLN 15 ML(LIQUITEARS) OU (15:15)
[2018-01-22] MEDS: CIPROFLOXACIN 0.3% OPHTH SOLN 2.5ML OU ×2 (15:15→18:47)
[2018-01-23] MEDS: MORPHINE 10MG/0.5ML ORAL CONCENTRATE SOLUTION U/D SL ×3 (01:21→11:07)
[2018-01-23] MEDS: LORazepam 1 MG TAB PO ×3 (04:20→20:29)
[2018-01-23] MEDS: CIPROFLOXACIN 0.3% OPHTH SOLN 2.5ML OU ×4 (06:00→17:59)
[2018-01-23] MEDS: ACETAMINOPHEN TAB 650MG DOSE (2X325MG) PEG (20:29)
[2018-01-23] MEDS: POLYVINYL ALCOHOL OPHTH SOLN 15 ML(LIQUITEARS) OU (20:29)
[2018-01-24] MEDS: CIPROFLOXACIN 0.3% OPHTH SOLN 2.5ML OU ×3 (05:59→12:04)
[2018-01-24] MEDS: ACETAMINOPHEN TAB 650MG DOSE (2X325MG) PEG (11:31)
[2018-01-24] MEDS: MORPHINE 10MG/0.5ML ORAL CONCENTRATE SOLUTION U/D SL ×3 (14:21→23:48)
[2018-01-24] MEDS: LORazepam 1 MG TAB PO (23:24)
[2018-01-25] MEDS: LORazepam 1 MG TAB PO ×2 (02:16→13:43)
[2018-01-26] MEDS: MORPHINE 10MG/0.5ML ORAL CONCENTRATE SOLUTION U/D SL ×2 (15:09→18:50)
[2018-01-26] MEDS: ACETAMINOPHEN TAB 650MG DOSE (2X325MG) PEG (17:22)
[2018-01-26] MEDS: LORazepam 1 MG TAB PO (22:30)
[2018-01-27] MEDS: LORazepam 1 MG TAB PO (11:08)
[2018-01-27] MEDS: MORPHINE 10MG/0.5ML ORAL CONCENTRATE SOLUTION U/D SL (19:52)
== END 2018-01-28 09:50 | disposition hospice, home (50) | DRG 254 ==
LOC: M MS5PR 01-07 21:48 → M ED 15:44 → M ED INP 19:23 → M PCU 21:40
PROVIDERS: Hospitalist
DX: K91.2 Postsurgical malabsorption, not elsewhere classified (principal); E43 Unspecified severe protein-calorie malnutrition; I95.9 Hypotension, unspecified; Z86.74 Personal history of sudden cardiac arrest; E87.1 Hypo-osmolality and hyponatremia; F03.90 Unspecified dementia, unspecified severity, without behavioral disturbance, psychotic disturbance, mood disturbance, and anxiety; E83.42 Hypomagnesemia; I48.91 Unspecified atrial fibrillation; Z93.1 Gastrostomy status; Z51.5 Encounter for palliative care; Z66 Do not resuscitate; E86.0 Dehydration; Z90.49 Acquired absence of other specified parts of digestive tract; Z68.1 Body mass index [BMI] 19.9 or less, adult; Z93.2 Ileostomy status; Z79.899 Other long term (current) drug therapy

== ENCOUNTER → 2018-01-06 | Outpatient (REF) | payer BC, MEDICAID ==
[2018-01-06 11:05] LABS: MAGNESIUM LEVEL 0.6 MG/DL (1.8-2.4)
[2018-01-06 12:50] LABS: AMORPHOUS SEDIMENT LARGE (NEGATIVE); APPEARANCE, URINE CLEAR (CLEAR); BACTERIA, URINE AUTO NEGATIVE (NEGATIVE); BILIRUBIN, URINE AUTO NEGATIVE (NEGATIVE); BLOOD, URINE BLOOD NEGATIVE (NEGATIVE); COLOR, URINE AMBER (YELLOW); GLUCOSE, URINE (UA) AUTO NEGATIVE (NEGATIVE); KETONE, URINE AUTO NEGATIVE (NEGATIVE); LEUKOCYTE ESTERASE, URINE AUTO NEGATIVE (NEGATIVE); NITRITE, URINE AUTO NEGATIVE (NEGATIVE); PROTEIN, URINE AUTO 1+ mg/dL (NEGATIVE); RBC, URINE AUTO 2 /HPF (0-3); SPECIFIC GRAVITY URINE AUTO 1.021 (1.002-1.035); SQUAMOUS EPITHELIAL CELL UR AU 0 /HPF (0-6); UROBILINOGEN, URINE AUTO 0.2 mg/dL (0.0-2.0); WBC, URINE AUTO 1 /HPF (0-3)
== END ==
LOC: SKLAB4 09:53
DX: E83.42 Hypomagnesemia (principal)
CPT/HCPCS: 83735

== ENCOUNTER → 2018-01-09 | Outpatient (REF) | payer BC, MEDICAID | LOC: SKLAB4 08:36 | DX: E83.42 Hypomagnesemia (principal); Z93.1 Gastrostomy status ==

== ENCOUNTER → 2018-01-17 | Outpatient (REF) | payer BC, MEDICAID | LOC: SKLAB4 12:04 | DX: E83.42 Hypomagnesemia (principal); Z93.1 Gastrostomy status ==